=== PATIENT | female | born 1975 | race Caucasian/White ===

== ENCOUNTER 2019-04-12 11:04 | Outpatient (CLI) | payer OTHER, SELFPAY ==
[2019-04-12 11:22] LABS: Abs Immature Grans 0.01 k/cumm (0.0-0.09); Absolute Basophil Count 0.05 k/cumm (0.0-0.2); Absolute Eosinophil Count 0.06 k/cumm (0.0-0.7); Absolute Lymphocyte Count 1.52 k/cumm (1.2-3.4); Basophils % 0.9; Eosinophils % 1.1; Immature Grans % 0.2; Lymphocytes % 28.5; Mean Corp. HGB Concentration 34.8 g/dL (32.0-36.0); Mean Corpuscular Hemoglobin 34.7 pg (27.0-33.0); Mean Corpuscular Volume 99.8 fL (80-95); Mean Platelet Volume 9.6 fL (8.0-11.0); Neutrophils % 54.3; Platelet Count 210 x1000/uL (130-400); RBC 4.61 m/cumm (4.00-5.20); RBC Distribution Width 14.5 % (11.7-14.6); White Blood Cell Count 5.34 k/cumm (4.4-10.8)
[2019-04-12 12:47] LABS: ALT 48 U/L (12-78); AST 38 U/L (15-37); Albumin 3.9 g/dL (3.4-5.0); Alkaline Phosphatase 79 U/L (46-116); Anion Gap 13.6 mmol/L (3-11); BUN 15 mg/dL (7-18); Bilirubin, Total 1.2 mg/dL (0.2-1.0); CO2 27.4 mmol/L (21.0-32.0); CREATININE 0.79 mg/dL (0.55-1.02); Calcium 9.8 mg/dL (8.5-10.1); Chloride 100 mmol/L (98-107); Glucose 125 mg/dL (70-100); Potassium 3.8 mmol/L (3.5-5.1); Sodium 141 mmol/L (136-145); TSH (W/Ref FT4) 1.26 uIU/mL (0.36-3.74)
[2019-04-12 13:43] LABS: ESR 5 mm/hr (0-20)
[2019-04-13 14:17] LABS: ANA Interpretation Positive (NEGAT); ANA Titer Pattern SEE COMMENTS
== END 2019-04-12 11:24 ==
PROVIDERS: Visit Provider Nurse Practitioner Family
DX: R20.8 Other disturbances of skin sensation (principal)
CPT/HCPCS: 36415; 80053; 85652; 84443; 85025; 86038

== ENCOUNTER 2019-05-26 11:21 | Outpatient (CLI) | payer OTHER, SELFPAY ==
[2019-05-26 13:18] LABS: Iron 160 ug/dL (50-175); Total Iron Binding Capacity 397 ug/dL (250-450); Transferrin Sat 40 % (15-50)
[2019-05-27 09:44] LABS: Hepatitis C Ab w Rflx HCV PCR Negative (NEGAT)
[2019-05-31 12:42] LABS: RNP Ab, IgG 1.5 Units (<20); SS-A Antibody 1.1 Units (<20); SS-B (La) Ab, IgG 16.7 Units (<20); Sm (Smith) Ab, IgG 2.2 Units (<20)
== END 2019-05-26 11:41 ==
PROVIDERS: PCP Family Medicine; Visit Provider Internal Medicine Rheumatology
DX: M79.672 Pain in left foot (principal); M79.671 Pain in right foot; R20.0 Anesthesia of skin; R76.8 Other specified abnormal immunological findings in serum; D58.2 Other hemoglobinopathies
CPT/HCPCS: 36415; 86803; 83540; 83550; 86235

== ENCOUNTER 2019-07-27 12:44 | Emergency (ER) | payer MEDICAID, SELFPAY ==
[2019-07-27 12:58] VITALS: BP 143/101; PULSE 104; RESP 16; TEMP 36; O2SAT 96
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
[2019-07-27 13:34] LABS: Abs Immature Grans 0.01 k/cumm (0.0-0.09); Absolute Basophil Count 0.04 k/cumm (0.0-0.2); Absolute Eosinophil Count 0.06 k/cumm (0.0-0.7); Absolute Lymphocyte Count 1.98 k/cumm (1.2-3.4); Absolute Monocyte Count 0.46 k/cumm (0.11-0.7); Absolute Neutrophil Count 2.09 k/cumm (1.2-6.7); Basophils % 0.9; Eosinophils % 1.3; HGB 14.3 g/dL (12.0-15.5); Immature Grans % 0.2; Lymphocytes % 42.7; Mean Corp. HGB Concentration 34.9 g/dL (32.0-36.0); Mean Corpuscular Hemoglobin 33.2 pg (27.0-33.0); Mean Corpuscular Volume 95.1 fL (80-95); Mean Platelet Volume 9.1 fL (8.0-11.0); Monocytes % 9.9; Platelet Count 170 x1000/uL (130-400); RBC 4.31 m/cumm (4.00-5.20); RBC Distribution Width 13.1 % (11.7-14.6); White Blood Cell Count 4.64 k/cumm (4.4-10.8)
[2019-07-27 13:52] LABS: Salicylate < 2.8 mg/dL (2.8-20.0)
[2019-07-27 13:55] LABS: ALT 50 U/L (14-59); AST 86 U/L (15-37); Albumin 3.1 g/dL (3.4-5.0); Alkaline Phosphatase 81 U/L (46-116); Anion Gap 10.2 mmol/L (3-11); BUN 14 mg/dL (7-18); Bilirubin, Total 0.6 mg/dL (0.2-1.0); CO2 27.8 mmol/L (21.0-32.0); CREATININE 0.63 mg/dL (0.55-1.02); Calcium 8.1 mg/dL (8.5-10.1); Chloride 103 mmol/L (98-107); ETHANOL BLOOD 128.2 mg/dL (<3); Glucose 98 mg/dL (74-106); Potassium 3.8 mmol/L (3.5-5.1); Sodium 141 mmol/L (136-145); TSH 1.08 uIU/mL (0.36-3.74); Total Protein 6.4 g/dL (6.4-8.2)
[2019-07-27 14:02] LABS: Acetaminophen < 2 ug/mL (10-30)
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
[2019-07-27 15:02] LABS: *AMPHETAMINES SCREEN URINE Negative (Negative); *BARBITURATES SCREEN URINE Negative (Negative); *BENZODIAZEPINES SCREEN URINE Negative (Negative); Cannabinoids THC POSITIVE (Negative); Cocaine Screen,Urine Negative (Negative); METHADONE URINE SCREEN Negative (Negative); OPIATES URINE SCREEN Negative (Negative)
[2019-07-27 15:19] VITALS: BP 140/99; PULSE 90; RESP 18; O2SAT 97
[2019-07-27 15:23] LABS: Tricyclic Antidepressants Negative (Negative)
== END 2019-07-27 15:35 | disposition home or self-care (01) ==
PROVIDERS: Emergency Provider Emergency Medicine; PCP Family Medicine
DX: F32.9 Major depressive disorder, single episode, unspecified (principal); R45.851 Suicidal ideations; F10.120 Alcohol abuse with intoxication, uncomplicated; Y90.6 Blood alcohol level of 120-199 mg/100 ml
CPT/HCPCS: 80053; 80307; 81025; 99285; 80320; 80329; 81003; 84443; 85025; 99284

== ENCOUNTER 2020-01-09 21:05 | Outpatient (REF) | payer MEDICAID, SELFPAY ==
[2020-01-09 21:18] LABS: HCT 37.8 % (36.0-46.0); HGB 12.8 g/dL (12.0-15.5); Mean Corp. HGB Concentration 33.9 g/dL (32.0-36.0); Mean Corpuscular Volume 100.5 fL (80-95); Mean Platelet Volume 10.8 fL (8.0-11.0); Platelet Count 135 x1000/uL (130-400); RBC 3.76 m/cumm (4.00-5.20); RBC Distribution Width 13.2 % (11.7-14.6); White Blood Cell Count 9.83 k/cumm (4.4-10.8)
[2020-01-09 21:25] LABS: ALT 29 U/L (14-59); AST 41 U/L (15-37); Albumin 2.4 g/dL (3.4-5.0); Alkaline Phosphatase 106 U/L (46-116); Anion Gap 8.6 mmol/L (3-11); BUN 5 mg/dL (7-18); Bilirubin, Total 1.5 mg/dL (0.2-1.0); CO2 28.4 mmol/L (21.0-32.0); CREATININE 0.75 mg/dL (0.55-1.02); Calcium 6.6 mg/dL (8.5-10.1); Chloride 95 mmol/L (98-107); Glucose 94 mg/dL (74-106); Lipase 337 U/L (73-393); Sodium 132 mmol/L (136-145); Total Protein 5.6 g/dL (6.4-8.2)
[2020-01-09 21:47] LABS: Potassium 2.8 mmol/L (3.5-5.1)
== END 2020-01-09 21:25 ==
LOC: NCHCN 21:05
PROVIDERS: PCP Family Medicine; Visit Provider Family Medicine
DX: R10.9 Unspecified abdominal pain (principal)
CPT/HCPCS: 80053; 83690; 85027

== ENCOUNTER 2020-01-10 13:27 | Outpatient (REF) | payer MEDICAID, SELFPAY ==
[2020-01-10 14:04] LABS: ALT 33 U/L (14-59); AST 55 U/L (15-37); Albumin 2.4 g/dL (3.4-5.0); Alkaline Phosphatase 139 U/L (46-116); Anion Gap 7.2 mmol/L (3-11); BUN 5 mg/dL (7-18); Bilirubin, Total 1.9 mg/dL (0.2-1.0); CO2 30.8 mmol/L (21.0-32.0); CREATININE 0.71 mg/dL (0.55-1.02); Calcium 6.7 mg/dL (8.5-10.1); Chloride 97 mmol/L (98-107); Glucose 97 mg/dL (74-106); Potassium 3.1 mmol/L (3.5-5.1); Sodium 135 mmol/L (136-145); Total Protein 5.7 g/dL (6.4-8.2)
== END 2020-01-10 13:47 ==
LOC: NCHCN 13:27
PROVIDERS: PCP Family Medicine; Visit Provider Internal Medicine
DX: E87.6 Hypokalemia (principal)
CPT/HCPCS: 80053

== ENCOUNTER 2020-01-11 11:13 | Emergency (ER) | payer MEDICAID, SELFPAY ==
[2020-01-11] VITALS (10 sets, daily range): BP systolic 103–131; BP diastolic 60–77; PULSE 80–120; RESP 8–18; TEMP 36; O2SAT 96–100
--- NOTE | 2020-01-11 11:15 | DI.CT_ITS ---
EXAM: CT ABDOMEN PELVIS W CLINICAL HISTORY: Upper abdominal pain, N/V/D, fever TECHNIQUE: Imaging Protocol: Axial computed tomography images with coronal and sagittal reformatted images were created and reviewed CONTRAST MATERIAL: Intravenous: Omnipaque 350 Contrast volume:100 mL Oral: No COMPARISON: No exams were available for comparison FINDINGS: ABDOMEN: Lung Bases: Normal where visualized. Liver: Fatty liver. No measurable mass. Portal, Superior Mesenteric, and Splenic Veins: Unremarkable. Gallbladder and Biliary Tract: No radiodense calculus or dilation. Pancreas: Normal density with a mildly enlarged pancreas.. Extensive fluid is seen surrounding the p ancreas. No focal fluid collection is seen to suggest an abscess. The findings are suspicious for a cute pancreatitis. Spleen: Normal. Adrenals: No masses seen. Kidneys: Normal size, contour and axis. No radiodense stones or obstructive uropathy. No masses seen. Abdominal Aorta: Abdominal portion non-dilated. Bowel: No evidence of bowel obstruction. Mild thickening of the wall of the duodenum and proximal je junum likely reflecting the adjacent inflammatory changes of the pancreas. No evidence of acute appe ndicitis. Peritoneal Cavity: Small amount of abdominal pelvic ascites. No focal fluid collection to suggest an abscess. Lymph Nodes: Mildly enlarged lymph nodes in the upper abdomen which are likely reactive. Bones: Age appropriate degenerative changes in the spine. Soft Tissues: Unremarkable. PELVIS: Bladder: Symmetric distention, no gross wall thickening. Reproductive Organs: 2.9 x 3.8 cm hypodense mass involving the left adnexa with an associated calcifi cation. This may represent a ovarian dermoid. Lymph Nodes: Within normal limits. Bones: Degenerative changes. IMPRESSION: 1. Findings suspicious for acute pancreatitis. No evidence of an abscess. 2. Small amount of abdominal pelvic ascites. 3. Complex mass in the left adnexa with an associated calcification. This may represent an ovarian d ermoid. Pelvic ultrasound may be considered for further evaluation. 4. The findings were discussed with the emergency department on the date of the examination. RADIATION DOSE DELIVERED: 1,050.94mGy.cm Total DLP DATA REPOSITORY: All CT scans at this facility are submitted to the National Radiology Data Registry (NRDR) Dose Index Registry (DIR) with the [employer] (A[employer]). RADIATION OPTIMIZATION: All CT scans at this facility use at least one of these dose optimization te chniques: automated exposure control; mA and/or kV adjustment per patient size (includes targeted exa ms where dose is matched to clinical indication); or iterative reconstruction.
--- NOTE | 2020-01-11 11:28 | W.ED.GENAD ---
Discharge Plan Disposition Patient Disposition: HOME Condition: Stable Discharge Details Chief Complaint: Abd Prob Clinical Impression: Acute pancreatitis Primary Care Provider: Maritza Cheatham ED Provider: Magalie Blake Home Meds and New Rx's Prescriptions: New hydrocodone-ibuprofen 5-200 mg tablet 1 tab PO Q6H PRN (Reason: pain) Qty: 7 RF: 0 Continued potassium chloride 20 mEq tablet,ER particles/crystals 20 meq PO BID RF: 0 ondansetron HCl 4 mg tablet 4 mg PO PRN PRNRF: 0 omeprazole magnesium [Prilosec OTC] 20 mg Tablet,Delayed Release (Dr/Ec) 20 mg PO DAILY RF: 0 Discharge Instructions Instructions: Pancreatitis (ED) Additional Instructions: Follow up with primary care provider in 3-5 days. Return to ED sooner if any worsening or concerns. Increase oral fluids. Please take Ibuprofen with food every 4-6 hours as needed for pain and swelling. Take medications as directed, return to the ED for any fever, worsening vomiting, worsening pain not relieved by medications or any concerns. Do not drink alcohol this will make your pancreatitis worse Referrals: Maritza Cheatham [Primary Care Provider] - Medical Decision Making 44-year-old female presents with generalized abdominal pain associated with nausea, vomiting, fever, and diarrhea x6 days. Patient was seen by [facility] 2 days ago had labs done and was shown to have a potassium level of 3.1 sodium 135 calcium 6.7 and total bilirubin 1.9. She also has some elevated liver functions. Patient states that she has not vomited due to being on antiemetics Zofran but diarrhea has continued and the abdominal pain is still constant. She describes abdominal pain as stabbing, moderate to severe, radiates into her back. Abdominal surgical history includes x2 and hernia repair. We will repeat labs to evaluate leukocytosis fever and potassium. Patient given 2 mg of morphine IV and normal saline [address] abdomen pelvis with IV contrast ordered to rule out cholecystitis versus pancreatitis. Differential diagnosis includes but not limited to gastroenteritis, pancreatitis, cholecystitis, small bowel obstruction. 1259: CT shows evidence for possible pancreatitis inflamed pancreas with surrounding fluid. Due to patient's elevated bilirubin and elevated liver enzymes I will order an ultrasound to evaluate the gallbladder to rule out stone in the common bile duct. Discussed results with patient, verbalized understanding. Additional 50 mics of fentanyl ordered for pain control, magnesium infusion is infusing without difficulty at this time. 1400: Ultrasound preliminary report given verbally by diesel service technician shows inflamed pancreas no gallstones no evidence of cholecystitis. At this time it is her findings are more consistent with acute pancreatitis. We will send home with pain medicine she does have some Zofran previously prescribed. Strict return instructions given and red flags given to patient, verbalized understanding. Patient feels safe enough to go home at this time. Instructed to follow-up with primary care provider in 3 to 5 days if possible. Time of this dictation patient remained hemodynamically stable throughout stay, this text was generated using [employer] dictation system, please disregard any oddities of phrase or misspellings. Medical Records Medical records reviewed: Yes I reviewed the patient's medical records. HPI General Mode of arrival: ambulatory. Date/Time Provider Initiated Documentation: 01/11/20 11:15. Limitations to Documentation: no limitations. Information obtained by: patient. HPI Narrative: 44-year-old female presents with generalized abdominal pain associated with nausea, vomiting, fever, and diarrhea x6 days. Patient was seen by [facility] 2 days ago had labs done and was shown to have a potassium level of 3.1 sodium 135 calcium 6.7 and total bilirubin 1.9. She also has some elevated liver functions. Patient states that she has not vomited due to being on antiemetics Zofran but diarrhea has continued and the abdominal pain is still constant. She describes abdominal pain as stabbing, moderate to severe, radiates into her back. Abdominal surgical history includes x2 and hernia repair. Related Data Home Medications Medication Instructions Recorded Confirmed hydrocodone-ibuprofen 1 tab PO Q6H PRN #7 tab 01/11/20 omeprazole magnesium [Prilosec OTC] 20 mg PO DAILY 01/11/20 01/11/20 ondansetron HCl 4 mg PO PRN PRN 01/11/20 01/11/20 potassium chloride 20 meq PO BID 01/11/20 01/11/20 Previous Rx's Medication Instructions Recorded hydrocodone-ibuprofen 1 tab PO Q6H PRN #7 tab 01/11/20 Allergies Allergy/AdvReac Type Severity Reaction Status Date / Time No Known Allergies Allergy Verified 01/11/20 11:22 General Stated Complaint: Abd Prob LATRELL: 3 Review of Systems Narrative: Constitutional: Negative for weight loss, alert and oriented, well groomed, normal body habitus, appears uncomfortable. Reports fever. HEENT: Denies trauma, headaches, blurry vision, nasal discharge, sore throat, trouble swallowing. Chest: Denies chest pain, palpitations, irregular rhythm, hypertension. Respiratory: Denies Shortness of breath, cough, hemoptysis. GI: Denies , constipation. Positive abdominal pain, nausea vomiting diarrhea. : Denies dysuria, hematuria, flank pain, rectal bleeding. Neuro: Denies dizziness, blurry vision, weakness, syncope, headache or facial numbness. Hematologic: Denies easy bruising, intolerance to heat or cold, hair loss. All systems reviewed & are unremarkable except as noted in HPI and below PFSH Social History Smoking/Tobacco Use Status: Current every day Tobacco Type: cigarettes Smoking packs per day: 1 Smoking cigarettes per day: 20.0 Alcohol Intake: current Alcohol Intake frequency: a few times a week Drug use: Rarely Substance use type: marijuana Details: no drugs or alcohol today Do you feel safe at home: No Exam Narrative Exam Narrative: Constitutional: Alert and oriented x3. Appears stated age. Normal body habitus. Head: Normocephalic, no trauma. Eyes: Pupils PERRLA, Red reflex noted, EOM's intact. Eyelids symmetrical without lesions, discharge, or swelling. ENT: Bilateral TM's WNL, External ear normal to inspection, no mastoid TTP, swelling, or erythema, Nasal turbinates WNL, no nasal discharge. Normal dentition, Posterior pharynx WNL, no exudate. Chest: RRR, Normal S1, S2, distal pulses intact. Resp: Lungs clear to auscultation bilaterally, no wheezes, rales, or rhonchi. Abdominal: Abdomen is soft nondistended tender to palpation midepigastrium left upper quadrant and right upper quadrant. Hypoactive bowel sounds noted all 4 quadrants. Musculoskeletal: Normal gait, 5/5 strength to all four extremities. Skin: No suspicious rashes or lesions. Capillary refill less than 2 sec. Neurologic: Cranial nerves II-XII intact. Alert and oriented x 3. DTR's intact. Hematologic/Lymphatic: No ecchymosis, no lymphadenopathy. Course Vital Signs Vital signs: Vital Signs Temperature 36 C L 01/11/20 11:17 Pulse 120 H 01/11/20 11:17 Respiratory Rate 16 01/11/20 11:17 Blood Pressure 113/72 01/11/20 11:17 Pulse Oximetry 99 01/11/20 11:17 Temperature 36 C L 01/11/20 11:17 Temperature Source Skin 01/11/20 11:17 Pulse 120 H 01/11/20 11:17 Respiratory Rate 16 01/11/20 11:17 Respiratory Effort 01/11/20 11:25 Blood Pressure 113/72 01/11/20 11:17 Blood Pressure Position Sitting 01/11/20 11:17 Pulse Oximetry 99 01/11/20 11:17 Oxygen Delivery Method Room Air 01/11/20 11:17 Oxygen Flow Rate 0 01/11/20 11:17 Pain Level 8 01/11/20 11:17
[2020-01-11] MEDS: Normal Saline 1,000 ML 1000 ML IV (11:30)
[2020-01-11] MEDS: MORPHine 10 MG/ML VIAL 2 MG IVP (11:35)
[2020-01-11 11:40] LABS: Abs Immature Grans 0.02 k/cumm (0.0-0.09); Absolute Basophil Count 0.01 k/cumm (0.0-0.2); Absolute Eosinophil Count 0.13 k/cumm (0.0-0.7); Absolute Lymphocyte Count 0.85 k/cumm (1.2-3.4); Absolute Monocyte Count 1.45 k/cumm (0.11-0.7); Absolute Neutrophil Count 5.56 k/cumm (1.2-6.7); Basophils % 0.1; Eosinophils % 1.6; HCT 36.1 % (36.0-46.0); HGB 12.3 g/dL (12.0-15.5); Immature Grans % 0.2 %; Lymphocytes % 10.6; Mean Corp. HGB Concentration 34.1 g/dL (32.0-36.0); Mean Corpuscular Hemoglobin 34.2 pg (27.0-33.0); Mean Corpuscular Volume 100.3 fL (80-95); Mean Platelet Volume 9.3 fL (8.0-11.0); Monocytes % 18.1; Neutrophils % 69.4; Platelet Count 180 x1000/uL (130-400); RBC Distribution Width 13.1 % (11.7-14.6); White Blood Cell Count 8.02 k/cumm (4.4-10.8)
[2020-01-11 11:55] LABS: ALT 36 U/L (14-59); AST 52 U/L (15-37); Albumin 2.2 g/dL (3.4-5.0); Alkaline Phosphatase 146 U/L (46-116); Anion Gap 6.4 mmol/L (3-11); BUN 3 mg/dL (7-18); Bilirubin, Total 1.5 mg/dL (0.2-1.0); CO2 28.6 mmol/L (21.0-32.0); Calcium 7.1 mg/dL (8.5-10.1); Chloride 100 mmol/L (98-107); Glucose 130 mg/dL (74-106); Lipase 207 U/L (73-393); Potassium 3.4 mmol/L (3.5-5.1); Sodium 135 mmol/L (136-145); Total Protein 6.3 g/dL (6.4-8.2)
[2020-01-11 12:07] LABS: Bilirubin Moderate (Negative); Blood Negative (Negative); Clarity Clear (Clear); Glucose 100 mg/dL (Negative); Ketones 15 mg/dL (Negative); Leukocyte Esterase Negative (Negative); Nitrite Negative (Negative); Urobilinogen >=8.0 EU/dL (Up TO 0.2); pH 8.5 (5-8)
[2020-01-11] MEDS: MAGNESIUM SULFATE 1 GM/100 ML BAG IVPB (12:15)
[2020-01-11] MEDS: Normal Saline 1,000 ML 100 ML IV (12:15)
[2020-01-11 12:18] LABS: Bacteria Moderate HPF (Negative); C & S Indicated? No; Casts Negative LPF (Negative); Crystals Negative HPF (Negative); Epithelial Cells Moderate HPF (Negative); Mucus Negative (Negative); Other Cells Moderate Renal (Negative); RBC 0-2 HPF (0-2); WBC Negative HPF (0-5)
[2020-01-11] MEDS: Normal Saline Flush 10 ML SYR IVP (12:18)
[2020-01-11] MEDS: Normal Saline - Diluent 50 ML VIAL IV (12:23)
[2020-01-11] MEDS: Omnipaque 350 MG/ML 100 ML BTL IJ (12:23)
--- NOTE | 2020-01-11 12:45 | DI.US_ITS ---
EXAM: US ABDOMEN LIMITED CLINICAL HISTORY: R/O gallstones, elevated bilirubin TECHNIQUE: Ultrasound abdomen performed using standard protocol. COMPARISON: No exams were available for comparison FINDINGS: ABDOMINAL AORTA AND IVC: Visualized portions normal caliber. PANCREAS: The body of the pancreas is enlarged measuring 3.2 cm in diameter. LIVER: Increased echogenicity consistent with fatty infiltration. No hepatic mass. Hepatopedal flow in the Portal Vein. GALLBLADDER: No evidence of cholelithiasis. No evidence of wall thickening. No pericholecystic fluid identified. BILIARY SYSTEM: Common bile duct measures 4 mm. No intrahepatic biliary ductal dilation. ANDERSEN'S SIGN: Negative. KIDNEYS: The right kidney is unremarkable. No evidence of renal calculi. No evidence of hydronephros is. No renal mass or cyst identified. ASCITES: None seen. IMPRESSION: 1. No evidence of cholelithiasis or biliary ductal dilatation. 2. Enlarged pancreas corresponding to the findings on the CT scan from earlier in the day. 3. Hepatic steatosis. 4. The findings were discussed with the emergency department on the date of the examination. DATA REPOSITORY:
[2020-01-11] MEDS: fentaNYL 100 MCG/2 ML VIAL 50 MCG IVP (13:34)
--- NOTE | 2020-01-11 15:11 | W.ED.FU ---
Patient called saying that pharmacies do not carry hydrocodone with ibuprofen will change prescription to oxycodone 5 mg. Patient instructed to bring back old prescription.
== END 2020-01-11 14:22 | disposition home or self-care (01) ==
PROVIDERS: Emergency Provider Registered Nurse Emergency; PCP Family Medicine
DX: K85.80 Other acute pancreatitis without necrosis or infection (principal); E83.42 Hypomagnesemia; R11.2 Nausea with vomiting, unspecified
CPT/HCPCS: 36415; 80053; 83690; 87040; 96361; 96365; 96375; 99285; 74177; 76705; 81003; 81015; 83735; 85025; 99284; J2270; J3010; J3475; J3490

== ENCOUNTER 2020-01-13 11:22 | Outpatient (REF) | payer MEDICAID, SELFPAY ==
[2020-01-13 21:10] LABS: Anion Gap 6.5 mmol/L (3-11); BUN 3 mg/dL (7-18); CO2 29.5 mmol/L (21.0-32.0); CREATININE 0.66 mg/dL (0.55-1.02); Calcium 8.5 mg/dL (8.5-10.1); Chloride 98 mmol/L (98-107); Glucose 103 mg/dL (74-106); Lipase 113 U/L (73-393); Magnesium 1.3 mg/dL (1.8-2.4); Sodium 134 mmol/L (136-145)
== END 2020-01-13 11:42 ==
LOC: NCHCN 11:22
PROVIDERS: PCP Family Medicine; Visit Provider Family Medicine
DX: E87.6 Hypokalemia (principal); E83.51 Hypocalcemia; E83.42 Hypomagnesemia; R10.9 Unspecified abdominal pain
CPT/HCPCS: 80048; 83690; 83735

== ENCOUNTER 2020-01-18 17:09 | Outpatient (REF) | payer MEDICAID, SELFPAY | END 2020-01-18 17:29 | LOC: NCHCN 17:09 | PROVIDERS: PCP Family Medicine; Visit Provider Urology | DX: R35.0 Frequency of micturition (principal) | CPT/HCPCS: 87086 ==

== ENCOUNTER 2020-01-25 02:58 | Outpatient (CLI) | payer MEDICAID, SELFPAY ==
[2020-01-25 14:00] LABS: Abs Immature Grans 0.01 k/cumm (0.0-0.09); Absolute Basophil Count 0.05 k/cumm (0.0-0.2); Absolute Eosinophil Count 0.08 k/cumm (0.0-0.7); Absolute Lymphocyte Count 1.26 k/cumm (1.2-3.4); Absolute Monocyte Count 0.46 k/cumm (0.11-0.7); Absolute Neutrophil Count 4.04 k/cumm (1.2-6.7); Basophils % 0.8; Eosinophils % 1.4; HCT 38.5 % (36.0-46.0); Immature Grans % 0.2 %; Lymphocytes % 21.4; Mean Corp. HGB Concentration 33.8 g/dL (32.0-36.0); Mean Corpuscular Hemoglobin 33.2 pg (27.0-33.0); Mean Corpuscular Volume 98.2 fL (80-95); Mean Platelet Volume 9.4 fL (8.0-11.0); Monocytes % 7.8; Neutrophils % 68.4; Platelet Count 463 x1000/uL (130-400); RBC 3.92 m/cumm (4.00-5.20); RBC Distribution Width 13.5 % (11.7-14.6)
[2020-01-26 10:39] LABS: Lyme Ab w Rflx to Lyme Confirm Negative (Negative)
[2020-01-26 10:47] LABS: RNP Ab, IgG 1.5 Units (<20.0); SS-A Antibody 0.9 Units (<20.0); SS-B (La) Ab, IgG 12.6 Units (<20.0); Sm (Smith) Ab, IgG 1.1 Units (<20.0)
[2020-01-26 11:18] LABS: C3 Complement 119 mg/dL (81-157)
[2020-01-26 12:16] LABS: dsDNA Ab, IgG <12.3 IU/mL (<30.0)
== END 2020-01-25 03:18 ==
PROVIDERS: PCP Family Medicine; Visit Provider Internal Medicine Rheumatology
DX: R21 Rash and other nonspecific skin eruption (principal); R76.8 Other specified abnormal immunological findings in serum; Z79.899 Other long term (current) drug therapy
CPT/HCPCS: 36415; 85025; 86160; 86225; 86235; 86618

== ENCOUNTER 2020-05-01 08:28 | Emergency (ER) | payer MEDICAID, SELFPAY ==
[2020-05-01 08:30] VITALS: BP 145/95; PULSE 94; TEMP 36.6; O2SAT 100
--- NOTE | 2020-05-01 08:43 | ED.GENADUL_ITS ---
Discharge Plan Disposition Patient Disposition: HOME Condition: Stable Discharge Details Chief Complaint: Orthopedic Clinical Impression: Sprain of right shoulder Primary Care Provider: Maritza Cheatham ED Provider: Magalie Blake Home Meds and New Rx's Prescriptions: New baclofen 5 mg tablet 5 mg PO BID PRN (Reason: muscle spasm) Qty: 7 RF: 0 No Action potassium chloride 20 mEq tablet,ER particles/crystals 20 meq PO BID RF: 0 ondansetron HCl 4 mg tablet 4 mg PO PRN PRNRF: 0 omeprazole magnesium [Prilosec OTC] 20 mg Tablet,Delayed Release (Dr/Ec) 20 mg PO DAILY RF: 0 hydrocodone-ibuprofen 5-200 mg tablet 1 tab PO Q6H PRN (Reason: pain) Qty: 7 RF: 0 Discharge Instructions Instructions: Shoulder Sprain (ED) Additional Instructions: Follow up with primary care provider in 3-5 days. Return to ED sooner if any worsening or concerns. Increase oral fluids. Please take Tylenol or Ibuprofen with food every 4-6 hours as needed for pain and swelling. Rest, ice, compression. Stand Alone Forms: Work Release Referrals: Maritza Cheatham [Primary Care Provider] - Medical Decision Making <Magalie Blake - Last Filed: 05/01/20 10:26> 45-year-old female presents the ER with right shoulder pain after lifting a heavy pot while at work. She complains of anterior pinpoint tenderness. She does have full range of motion however it is painful. No obvious deformity or swelling or erythema noted. She has no other complaints at this time. She reports pain 7 out of 10 did not take any medications prior to arrival. Imaging not ordered at this time due to low likelihood of bony abnormality. This is most likely tendinitis. Will give tramadol and Flexeril here in department discharge patient with follow-up for PCP. <Lobito Scherer MD - Last Filed: 05/01/20 08:49> I had a [id number] encounter with the patient. I evaluated the patient. I discussed case with SECURITY CONTROL ROOM OFFICER/PA and I reviewed SECURITY CONTROL ROOM OFFICER/PA note and agree with note as documented HPI <Magalie Balke - Last Filed: 05/01/20 10:26> General Mode of arrival: ambulatory . Date/Time Provider Initiated Documentation: 05/01/20 08:29 . Limitations to Documentation: no limitations . Information obtained by: patient . HPI Narrative: 45-year-old female presents the ER with right shoulder pain after lifting a heavy pot while at work. She complains of anterior pinpoint tenderness. She does have full range of motion however it is painful. No obvious deformity or swelling or erythema noted. She has no other complaints at this time. She reports pain 7 out of 10 did not take any medications prior to arrival. Related Data Home Medications Medication Instructions Recorded Confirmed hydrocodone-ibuprofen 1 tab PO Q6H PRN #7 tab 01/11/20 omeprazole magnesium [Prilosec OTC] 20 mg PO DAILY 01/11/20 01/11/20 ondansetron HCl 4 mg PO PRN PRN 01/11/20 01/11/20 potassium chloride 20 meq PO BID 01/11/20 01/11/20 baclofen 5 mg PO BID PRN #7 tab 05/01/20 Previous Rx's Medication Instructions Recorded hydrocodone-ibuprofen 1 tab PO Q6H PRN #7 tab 01/11/20 baclofen 5 mg PO BID PRN #7 tab 05/01/20 Allergies Allergy/AdvReac Type Severity Reaction Status Date / Time No Known Allergies Allergy Verified 05/01/20 08:34 General Stated Complaint: Orthopedic LATRELL: 3 Review of Systems <Magalie Blake - Last Filed: 05/01/20 10:26> Narrative: Constitutional: Negative for weight loss, alert and oriented, well groomed, normal body habitus, appears comfortable. HEENT: Denies trauma, headaches, blurry vision, nasal discharge, sore throat, trouble swallowing. Chest: Denies chest pain, palpitations, irregular rhythm, hypertension. Respiratory: Denies Shortness of breath, cough, hemoptysis. GI: Denies abdominal pain, nausea, vomiting, diarrhea, constipation. Musculoskeletal: Right anterior shoulder pain : Denies dysuria, hematuria, flank pain, rectal bleeding. Neuro: Denies dizziness, blurry vision, weakness, syncope, headache or facial numbness. Hematologic: Denies easy bruising, intolerance to heat or cold, hair loss. [facility] <Magalie Blake - Last Filed: 05/01/20 10:26> Social History Smoking/Tobacco Use Status: Current every day Tobacco Type: cigarettes Smoking packs per day: 1 Smoking cigarettes per day: 20.0 Alcohol Intake: current Alcohol Intake frequency: a few times a week Drug use: Rarely Substance use type: marijuana Details: no drugs or alcohol today Do you feel safe at home: Yes Do you feel safe in your relationship?: Yes Exam <Magalie Ordaz Filed: 05/01/20 10:26> Narrative Exam Narrative: Constitutional: Alert and oriented x3. Appears stated age. Normal body habitus. Head: Normocephalic, no trauma. Eyes: Pupils PERRLA, Red reflex noted, EOM's intact. Eyelids symmetrical without lesions, discharge, or swelling. ENT: Bilateral TM's WNL, External ear normal to inspection, no mastoid TTP, swelling, or erythema, Nasal turbinates WNL, no nasal discharge. Normal dentition, Posterior pharynx WNL, no exudate. Chest: RRR, Normal S1, S2, distal pulses intact. Resp: Lungs clear to auscultation bilaterally, no wheezes, rales, or rhonchi. Musculoskeletal: Normal gait, 5/5 strength to all four extremities. Right anterior pinpoint tenderness with palpation. No obvious deformity or swelling noted. Skin: No suspicious rashes or lesions. Capillary refill less than 2 sec. Neurologic: Cranial nerves II-XII intact. Alert and oriented x 3. DTR's intact. Hematologic/Lymphatic: No ecchymosis, no lymphadenopathy. Course <Magalie Ordaz Filed: 05/01/20 10:26> Vital Signs Vital signs: Vital Signs Temperature 36.6 C 05/01/20 08:30 Pulse 94 H 05/01/20 08:30 Blood Pressure 145/95 H 05/01/20 08:30 Pulse Oximetry 100 05/01/20 08:30 Temperature 36.6 C 05/01/20 08:30 Temperature Source Temporal Artery Scan 05/01/20 08:30 Pulse 94 H 05/01/20 08:30 Respiratory Effort Non-Labored 05/01/20 08:33 Blood Pressure 145/95 H 05/01/20 08:30 Blood Pressure Position Sitting 05/01/20 08:30 Pulse Oximetry 100 05/01/20 08:30 Oxygen Delivery Method Room Air 05/01/20 08:30 Oxygen Flow Rate 0 05/01/20 08:30 Pain Level 7 05/01/20 08:30
[2020-05-01] MEDS: Cyclobenzaprine 10 MG TAB PO (08:48)
[2020-05-01] MEDS: traMADol 50 MG TAB PO (08:48)
== END 2020-05-01 08:55 | disposition home or self-care (01) ==
PROVIDERS: Emergency Provider Registered Nurse Emergency; PCP Family Medicine
DX: S43.491A Other sprain of right shoulder joint, initial encounter (principal); X50.0XXA Overexertion from strenuous movement or load, initial encounter; Y99.0 Civilian activity done for income or pay
CPT/HCPCS: 99283

== ENCOUNTER 2020-05-23 11:25 | Outpatient (CLI) | payer OTHER, SELFPAY ==
--- NOTE | 2020-05-23 10:45 | DI.RAD_ITS ---
EXAM: XR SHOULDER RT COMPLETE 2+V CLINICAL HISTORY: right shoulder pain. TECHNIQUE: 2D digital imaging was performed. COMPARISON: MR MRI - L UPPER JOINT WO CONT from 10/17/2011 FINDINGS: BONES: No acute fracture is present. No bony destructive lesion is seen. JOINTS: No dislocation present. No significant degenerative changes. SOFT TISSUE: Normal. IMPRESSION: Unremarkable radiographs of the right shoulder DATA REPOSITORY: RADIATION DOSE DELIVERED:
== END 2020-05-23 11:45 ==
PROVIDERS: PCP Family Medicine; Referring Provider Family Medicine; Visit Provider Student in an Organized Health Care Education/Training Program
DX: M25.511 Pain in right shoulder (principal)
CPT/HCPCS: 73030

== ENCOUNTER 2020-06-05 00:35 | Outpatient (CLI) | payer OTHER, SELFPAY ==
--- NOTE | 2020-06-05 08:40 | DI.MRI_ITS ---
EXAM: MR UPPER JOINT RT WO CLINICAL HISTORY: Traumatic rotator cuff tear,biceps tendinitis,impingement syndrome,s46.011a. TECHNIQUE: Multiplanar multisequence MRI was performed. COMPARISON: Right shoulder 23 May 2020 FINDINGS: There is no significant AC joint spurring. There is fluid in the subacromial subdeltoid bursa which could indicate bursitis.. There is a small amount of increased signal and thickening in the distal s upraspinatus tendon but no visible focal tear. The infraspinatus, subscapularis, teres minor and bic eps tendons are unremarkable. No labral defects are seen. There is no glenohumeral joint effusion. The marrow signal appears normal. IMPRESSION: Supraspinatus tendinosis. Subacromial subdeltoid bursitis. DATA REPOSITORY:
== END 2020-06-05 00:55 ==
PROVIDERS: PCP Family Medicine; Visit Provider Student in an Organized Health Care Education/Training Program
DX: M77.8 Other enthesopathies, not elsewhere classified (principal); M75.51 Bursitis of right shoulder; M75.41 Impingement syndrome of right shoulder; S46.011A Strain of muscle(s) and tendon(s) of the rotator cuff of right shoulder, initial encounter
CPT/HCPCS: 73221

== ENCOUNTER 2020-11-06 02:16 | Outpatient (CLI) | payer MEDICAID, SELFPAY ==
[2020-11-06 11:33] LABS: Source Nasal/Nares
[2020-11-06 17:03] LABS: COVID-19 PCR Negative (Negative)
== END 2020-11-06 02:17 | disposition home or self-care (01) ==
LOC: LBO 02:17
PROVIDERS: PCP Family Medicine; Visit Provider Student in an Organized Health Care Education/Training Program
DX: Z20.822 Contact with and (suspected) exposure to COVID-19 (principal); Z01.818 Encounter for other preprocedural examination
CPT/HCPCS: 87635

== ENCOUNTER 2020-11-08 07:56 | Day surgery (SDC) | payer OTHER, SELFPAY ==
[2020-11-08] VITALS (7 sets, daily range): BP systolic 109–147; BP diastolic 55–97; PULSE 77–90; RESP 16–25; TEMP 36.5–36.6; O2SAT 93–99
[2020-11-08] MEDS: Lactated Ringers 1,000 ML 100 ML IV (08:42)
--- NOTE | 2020-11-08 12:00 | ROE_ITS ---
Date of service: 11/08/20 Time of Service: 11:00 Operative Note Operative Note DATE OF PROCEDURE: 11/08/20 PRE-OP DIAGNOSIS: Right: 1. ACJ joint arthritis 2. SLAP tear 3. LHB tendinopathy 4. Bursitis 5. Impingement POST-OP DIAGNOSIS: other Right: 1. ACJ joint arthritis 2. SLAP tear 3. LHB tendinopathy 4. Bursitis 5. Impingement 6. Rotator cuff tear: Full-thickness, retracted supraspinatus tear with articu lar sided infraspinatus tearing as well PROCEDURE: Right: 1. Rotator cuff repair, CPT# 28826. This involved repair of the supraspinatus using anchors and sutures to reattach the rotator cuff back to the footprint of the greater tuberosity. 2. Arthroscopic biceps tenodesis, CPT# 37812. This involved arthroscopically suturing and reattaching the long head of the biceps tendon to the proximal humerus at the superior margin of the bicipital groove with a screw at the correct tension. 3. Extensive debridement, CPT# 74023. This involved using arthroscopic hand instruments, power instruments, and radiofrequency instruments to release to release the long head of the biceps tendon and debride areas of labral tearing, synovitis, partial articular sided rotator cuff tearing working within the glenohumeral joint anteriorly, superiorly and posteriorly. The [facility] ligament was also released given significant rotator interval biceps and anterior supraspin atus injury to prevent postoperative stiffness. The anterior greater tuberosity was also debrided of frayed scar tendon and tissue down to healthy bleeding margin of bone. 4. Subacromial decompression with partial acromioplasty, CPT# 00046. This involved using arthroscopic power instruments and a radiofrequency wand to complete a bursectomy and remove bone spurs on the undersurface of the acromion. 5. Arthroscopic distal clavicle excision, CPT# 77907. This involved arthroscopically exposing the underside of the acromioclavicular joint, smoothing out bone spurs, and using a caesar to remove approximately 5 mm of the distal clavicle so there was no bone left engaging the acromion. The assistant tennis professional was medically required in order to help assist in techniques above, which require positioning the arm, holding the arthroscope, and manipulating multiple instruments and sutures at the same time. This cannot be done without the help of an experienced assistant tennis professional. SURGEON: Lc Mas SPRING COVERER: Grisel Lundberg ANESTHESIA TYPE: General LMA/ETT and Primary Nerve Block Refer to Anesthesia Record ESTIMATED BLOOD LOSS: 15 PATHOLOGY: none sent COMPLICATIONS: None Patient was transported to: PACU Patient's condition: stable Implants: Arthrex: 4.75mm SwiveLocks x 2 Indications: The patient was diagnosed with the above conditions and appropriately indicated for surgical intervention. Please see complete medical record for details. Findings: Exam under anesthesia: Full, symmetrical range of motion without any instability. Neither shoulder had any significant stiffness. Glenohumeral joint: Profound anterior and superior synovitis. Significant SLAP tear and adjacent long of the biceps anchor inflammation. Intact subscapularis. Largely intact articular cartilage. Significant full-thickness frayed degenerative retracted supraspinatus tear starting at the rotator interval and involving partial articular sided fraying and moderate tearing of the posterior supraspinatus and to a lesser extent the anterior infraspinatus. Subacromial space: Mild bursitis. Moderate distal clavicle acromion impingement. Mild undersurface acromion bone spur. Significant supraspinatus tendon remnant on anterior and central greater tuberosity. No infraspinatus bursal tear. Procedure Description: In the operating room, general anesthesia was induced. Bilateral shoulders were examined. The patient was positioned in the beachchair position. All bony prominences were well-padded. Preoperative antibiotics were administered. The shoulder was prepped and draped in the usual sterile fashion. The correct patient, procedure, and side of the procedure were all verified prior to incision. Starting through the posterior portal a standard complete diagnostic arthroscopy was performed of the glenohumeral joint including inspection of the long head of the biceps, anterior and superior labrum, subscapularis tendon, supraspinatus and infraspinatus tendons, and axillary recess. The glenoid and humeral head cartilage as well as the posterior labrum were inspected from an anterior viewing portal. Significant findings and interventions noted above. A superior anterolateral portal was established through the full-thickness anterior supraspinatus rotator cuff tear. Using a loop and tack method with a suture tape fiber link, the biceps tendon was secured and tenotomized from the superior labrum using arthroscopic scissors. Starting through the posterior portal, the arthroscope was directed into the subacromial space. A lateral 50 yard line lateral portal was created and Autumn cannula inserted. A combination of power instruments and a radiofrequency ablator were used to debride bursitis anteriorly, posteriorly, and laterally as well as expose and smooth bone spurring on the undersurface of the acromion. The coracoacromial ligament was only partially released. The bursectomy was completed viewing laterally and working from posteriorly and the rotator cuff was thoroughly inspected with findings noted above. The anterior portal was redirected towards the undersurface of the AC joint. A shaver and electrocautery device were used to clear soft tissue from the und ersurface of the AC joint. A high-speed shaver was then inserted and used to remove the distalmost 5 mm of the distal clavicle. Care was taken to alternate between working through the anterior portal and viewing through the anterior portal to ensure that proper amount of bone was removed and there was no engaging bone left behind especially superiorly. The FiberLink containing the biceps tendon was then withdrawn out the anterior portal to keep out of the way for rotator cuff repair preparation and for later planned arthroscopic incorporation and tenodesis. An additional posterior superior lateral portal was established. Combination of hand instruments and power instruments were used to debride the greater tuberosity of tendon remnant as well as expose supraspinatus tendon tear and de brided to healthy margin of tissue. There was significant fraying and degenerative tissue about the rotator cuff tear margins. Rotator cuff graspers and immobilizers confirmed appropriate reduction from posterior to anterior and medial to lateral of the full-thickness retracted component of the tear, which was worst anteriorly. The arm was positioned optimally for planned reduction and fixation. As the tendon had torn off the medial aspect of the greater tuberosity, there was not enough tendon for double row reduction compression technique. The decision was made to proceed with single medial row repair fixation. Starting centrally in the greater tuberosity at the posterior margin of the tear, a self retrieving suture passer was used to place an inverted horizontal mattress fiber tape suture. Self retrieving suture passer was then used to place a fiber link in cinch mode ripstop fashion between either end of the fiber tape mattress. Provisional reduction confirmed appropriate placement, and through a stab portal the punch was used to localize suture anchor placement, the sutures were withdrawn and passed through the anchor eyelet, and the suture anchor appropriately brought down to bone with sutures tensioned bringing the edge of the rotator cuff to the prepared bone surface adjacent to the tendon remnant centrally in the greater tuberosity. Next, a self retrieving suture passer was used to pass a horizontal inverted mattress suture similarly about the remaining anterior retracted aspect of the supraspinatus tear. Provisional reduction confirmed the remainder of the anterior aspect of the tear to prepared greater tuberosity bone reduced adjacent to greater tuberosity remnant tissue just posterior to the rotator interval. The biceps tendon FiberLink was then retrieved and brought out the superior anterior lateral portal with the fiber tape rotator cuff repair sutures. The punch was used to localize placement of the neck swivel lock anchor that was appropriate loaded with the rotator cuff repair sutures from medial to lateral in the biceps tenodesis sutures from lateral to medial, appropriate tension was placed, and the suture anchor secured to bone with excellent fixation. The supraspinous repair was inspected through range of motion and probed. There was excellent fixation strength and reduction considering degenerative poor tissue quality and retracted medial tear pattern. The biceps tend had secure fixation to the anteriormost anchor. The shoulder was drained of arthroscopic fluid. All portal sites were copiously irrigated. These incisions were closed using 3-0 Monocryl in a buried fashion, covered with Mastisol, Steri-Strips, Xeroform, dry gauze, and ABDs. The dressings were covered and secured with Medipore tape. The operative extremity was placed into a sling for immobilization. The patient awoke from anesthesia without complication and was transferred to the recovery room in a stable condition.
[2020-11-08] MEDS: EPINEPHrine 30 MG/30 ML VIAL (12:39)
--- NOTE | 2020-11-08 12:58 | PDOC.DSDIS_ITS ---
Discharge Plan Disposition Patient Disposition: HOME Condition: Stable Discharge Details Reason For Visit: Right shoulder surgery Attending Provider: Lc Mas Primary Care Provider: Maritza Cheatham Home Meds and New Rx's Prescriptions: New aspirin 81 mg tablet,delayed release (DR/EC) 81 mg PO DAILY 14 Days Qty: 14 RF: 0 naproxen 250 mg tablet 250 - 500 mg PO BID PRN (Reason: Moderate pain or swelling) Qty: 60 RF: 0 oxycodone 5 mg tablet 5 - 10 mg PO Q4H PRN (Reason: moderate to severe pain) Qty: 22 RF: 0 Continued omeprazole magnesium [Prilosec OTC] 20 mg Tablet,Delayed Release (Dr/Ec) 20 mg PO DAILY RF: 0 melatonin 3 mg Capsule 3 mg PO HS PRNRF: 0 Discontinued ibuprofen 200 mg tablet 200 mg PO Q6H PRNRF: 0 ibuprofen 800 mg tablet 800 mg PO BID PRN (Reason: pain, moderate) Qty: 60 RF: 0 Discharge Instructions Additional Instructions: Surgery: Shoulder arthroscopy with rotator cuff repair, biceps tenodesis, ex tensive debridement, subacromial decompression, and distal clavicle excision. Activity: You should keep your arm at your side in a neutral position at all times except for physical therapy. Do not try to lift or raise your arm using your own muscles. You should use the sling whenever you are out of the house. You may have to adjust the abduction pillow or remove it for comfort. At home it is best to remove the sling and rest the arm on a pillow at your side or support the operative side with your other hand. You may allow the arm to dangle at your side. A physical therapy prescription will be sent electronically to begin in about 1-2 weeks. Prescriptions: Aspirin 81 mg take 1 daily to prevent a blood clot for 2 weeks Naproxen 250 mg take 1-2 every 12 hours with a meal as needed for moderate pain Oxycodone 5 mg take 1-2 every 4-6 hours as needed for severe pain You may use [id number] Tylenol (acetaminophen) as needed for mild pain. These pain medications may be taken all at once or in different combinations as needed. Also, recommend Colace (docusate) as a stool softener as surgery and pain medicine cause constipation. Dressings: Remove shoulder bandage after 3 days. Leave the sticky Steri-Strips in place until they fall off or remove them after you shower. Cover the incisions with Band-Aids or leave them open to air. [The biceps bandage (inside upper arm) is glued on separately. You may leave this one on a few days longer if it is difficult to remove. There is also glue underneath this bandage that can be left in place until it peels off.] You may shower after 5 days. Follow-up: 10-[address] Mas (11/21/20 at 1:00 PM) You may take off the leg compression stockings this evening at home. You may also leave them on a few days longer if you have a history of leg swelling or edema. Let us know right away if you develop any redness, drainage, fevers, chest pain, or trouble breathing. Do not drink alcohol or drive for at least 24 hours after anesthesia. Please call the office during business hours with any questions or concerns. Referrals: Lc Mas MD [ [facility] STAFF PHYSICIAN] - Discharge Orders Discharge Orders: Discharge Order (Routine); Ordered 11/08/20 Ordered By: Lc Mas DS: Diagnosis Discharge Diagnosis (1) Bursitis of right shoulder: Status: Acute (2) Impingement syndrome of right shoulder: Status: Acute (3) Biceps tendinitis of right shoulder: Status: Acute (4) Arthritis of right acromioclavicular joint: Status: Acute (5) Traumatic tear of right rotator cuff: Status: Acute
[2020-11-08] MEDS: fentaNYL 100 MCG/2 ML VIAL IVP ×3 (13:20→13:40)
[2020-11-08] MEDS: oxyCODONE 5 MG TAB PO (15:07)
== END 2020-11-08 15:57 | disposition home or self-care (01) ==
PROVIDERS: PCP Family Medicine; Visit Provider Student in an Organized Health Care Education/Training Program
PROC: (CPT 29805; principal; 2020-11-08 10:00)
DX: M19.011 Primary osteoarthritis, right shoulder (principal); M75.51 Bursitis of right shoulder; M75.41 Impingement syndrome of right shoulder; M75.101 Unspecified rotator cuff tear or rupture of right shoulder, not specified as traumatic; M75.21 Bicipital tendinitis, right shoulder
CPT/HCPCS: 29823; 29824; 29826; 29827; 29828; 76942; 81025; J0131; J1100; J1885; J2001; J2250; J2405; J2704; J3010

== ENCOUNTER 2021-01-22 02:39 | Outpatient (CLI) | payer MEDICAID, SELFPAY ==
[2021-01-22 10:12] LABS: Source Nasal/Nares
[2021-01-22 13:25] LABS: COVID-19 PCR Negative (Negative)
== END 2021-01-22 02:40 | disposition home or self-care (01) ==
LOC: LBO 02:39
PROVIDERS: PCP Family Medicine; Visit Provider Surgery Vascular Surgery
DX: Z20.822 Contact with and (suspected) exposure to COVID-19 (principal); Z01.818 Encounter for other preprocedural examination
CPT/HCPCS: 87635

== ENCOUNTER 2022-02-18 15:34 | Outpatient (REF) | payer MEDICAID, SELFPAY ==
[2022-02-18 17:52] LABS: Bilirubin Moderate (Negative); Blood Negative (Negative); Clarity Sl Cloudy (Clear); Glucose Negative (Negative); Ketones 15 mg/dL (Negative); Leukocyte Esterase Negative (Negative); Nitrite Negative (Negative); Specific Gravity >= 1.030 (1.005-1.025); Urobilinogen 0.2 EU/dL (Up TO 0.2); pH 5.5 (5-8)
[2022-02-18 18:40] LABS: Bacteria Few HPF (Negative); Casts Negative LPF (Negative); Crystals Many Calcium Oxalate HPF (Negative); Epithelial Cells Many HPF (Negative); Mucus Negative (Negative); RBC Negative HPF (0-2)
[2022-02-18 18:41] LABS: C & S Indicated? No/Sq. Contamination
== END 2022-02-18 15:35 | disposition home or self-care (01) ==
LOC: NCHCN 15:34
PROVIDERS: PCP Family Medicine; Visit Provider Nurse Practitioner Family
DX: N39.0 Urinary tract infection, site not specified (principal)
CPT/HCPCS: 81003; 81015

== ENCOUNTER → 2022-02-21 15:14 | Outpatient (CLI) | payer MEDICAID, SELFPAY ==
--- NOTE | 2022-02-21 15:15 | DI.CT_ITS ---
Exam(s) CT ABDOMEN PELVIS WO EXAM: CT ABDOMEN PELVIS WO CLINICAL HISTORY: BACK PAIN M54.9 URINARY DISORDER N39.9. TECHNIQUE: Imaging Protocol: Axial computed tomography images with coronal and sagittal reformatted images were created and reviewed CONTRAST MATERIAL: Intravenous: none Oral: None COMPARISON: CT CT ABDOMEN PELVIS W from 01/11/2020 FINDINGS: VISUALIZED LUNG BASES: No nodules nor pleural effusions evident. ABDOMEN: There is no ascites. LIVER: Liver is somewhat hypodense implying an element of steatosis. There are no discrete focal hep atic lesions evident on this noninfused study. No dilatation of intrahepatic ducts GALLBLADDER/BILIARY: No obvious gallbladder pathology. CBD is not dilated. PANCREAS: Pancreas appears unremarkable. No obvious pancreatitis, as was evident on the December 2019 ekaterina dy. No evidence of pseudocyst. No pancreatic calcifications. No pancreatic atrophy and no signific ant dilatation of the pancreatic duct. The uncinate process retains normal triangular configuration. SPLEEN: Spleen size upper normal. Are too small calcific splenic granulomas ADRENALS: There are no significant adrenal masses. KIDNEYS:No cysts evident. No solid renal masses. No calculi nor hydronephrosis. . ABDOMINAL AORTA: Abdominal aorta is not enlarged. LYMPH NODES: There is no retroperitoneal nor paraaortic adenopathy. ABDOMINAL WALL: No evidence of significant anterior abdominal wall nor inguinal hernia. GI: There is no evidence of bowel obstruction, free air, nor abscess. PELVIS: LYMPH NODES: There is no intrapelvic nor inguinal adenopathy. GI: No evidence of appendicitis.No evidence of sigmoid diverticulitis. URINARY BLADDER: No calculi nor obvious masses evident REPRODUCTIVE: Uterus size is unremarkable. Right adnexa unremarkable. There is a 4 x 3 millimeter c alcification in the left ovary again noted. This is unchanged from 01/11/2020. left ovary size upper normal. OSSEOUS: No significant osseous lesions. Advanced chronic disc space narrowing at L5-S1 level again noted. Sacroiliac joints unremarkable. No fractures. IMPRESSION: 1. No evidence of obvious acute pancreatitis, as was evident on prior CT scan of December 2019. No eviden ce of pancreatic pseudocyst, pancreatic calcifications, nor obvious pancreatic mass. The pancreatic duct is not dilated. 2. Mild hepatic steatosis. No discrete focal hepatic lesions. 3. There is a 4 x 3 millimeter calcification left ovary again noted. Left ovary size is upper normal . Nevertheless, cannot exclude the possibility of dermoid, given the calcification within the ovary. Right ovary is not identified. No free fluid in the pelvis. RADIATION DOSE DELIVERED: 1,000.42mGy.cm Total DLP DATA REPOSITORY: All CT scans at this facility are submitted to the National Radiology Data Registry (NRDR) Dose Index Registry (DIR) with the [employer] (ACR). RADIATION OPTIMIZATION: All CT scans at this facility use at least one of these dose optimization te chniques: automated exposure control; mA and/or kV adjustment per patient size (includes targeted exa ms where dose is matched to clinical indication); or iterative reconstruction.
== END ==
PROVIDERS: PCP Family Medicine; Visit Provider Nurse Practitioner Family
DX: K76.0 Fatty (change of) liver, not elsewhere classified (principal); N83.8 Other noninflammatory disorders of ovary, fallopian tube and broad ligament; N39.9 Disorder of urinary system, unspecified; M54.9 Dorsalgia, unspecified
CPT/HCPCS: 74176

== ENCOUNTER 2022-02-21 18:27 | Outpatient (REF) | payer MEDICAID, SELFPAY ==
[2022-02-21 18:51] LABS: Anion Gap 9.4 mmol/L (3-11); BUN 10 mg/dL (7-18); CO2 24.6 mmol/L (21.0-32.0); CREATININE 0.9 mg/dL (0.55-1.02); Chloride 98 mmol/L (98-107); Glucose 158 mg/dL (74-106); Potassium 3.7 mmol/L (3.5-5.1); Sodium 132 mmol/L (136-145)
== END 2022-02-21 18:28 | disposition home or self-care (01) ==
LOC: NCHCN 18:27
PROVIDERS: PCP Family Medicine; Visit Provider Nurse Practitioner Family
DX: R39.89 Other symptoms and signs involving the genitourinary system (principal)
CPT/HCPCS: 80048

== ENCOUNTER 2022-10-08 11:00 | Outpatient (REF) | payer MEDICAID, SELFPAY ==
--- NOTE | 2022-10-08 16:00 | PAPFT_PTH ---
PATIENT: Barby Mosley LOC: NCN #:[id number] AGE/SX: 47/F ROOM: RE10/08/[address]: Maritza Cheatham : 1975 BED: DIS: 10/08/2022 SPEC #: [id number] RECD: 10/09/22 13:05 STATUS: NILESH REYNOSO #: [id number] DANA: 10/08/22 16:[address]: Maritza Cheatham DEPT: [facility] Cytology RECD BY: Lilli Vazquez Tissues: 1 - CX/ENDOCX FOR PAP SMEARS Procedures: PAP THIN PREP/UVM Screening HPV DNA PROBE Comments: [id number]
== END 2022-10-08 11:01 | disposition home or self-care (01) ==
LOC: NCHCN 11:00
PROVIDERS: PCP Family Medicine; Visit Provider Family Medicine
DX: Z12.4 Encounter for screening for malignant neoplasm of cervix (principal); Z11.51 Encounter for screening for human papillomavirus (HPV)
CPT/HCPCS: 88142; 87624

== ENCOUNTER 2022-12-23 04:15 | Outpatient (CLI) | payer MEDICAID, SELFPAY ==
--- NOTE | 2022-12-23 12:15 | DI.MAMMO_ITS ---
Exam(s) MAMMO SCREENING EXAM: MAMMO SCREENING CLINICAL HISTORY: SCREENING, WELL ADULT/PREVENTATIVE CARE, Z00.00. TECHNIQUE: Bilateral full field digital CC and MLO mammographic images were obtained with 3D tomosyn thesis and utilizing computer aided detection (CAD). COMPARISON: Prior mammogram of November 2014 was reviewed. No other mammograms the PACS system. FINDINGS: There has been no significant change in the appearance and distribution of the fibroglandular tissue. There are no CAD designations. There are no new spiculated masses nor malignant appearing microcalcification groups. Two separate areas of asymmetric tissue in the left breast are unchanged 2014 and therefore benign. There is no significant architectural distortion nor skin thickening-retraction. IMPRESSION: No radiographic evidence of malignancy. BI-RADS Category 1 - Negative Breast Density - Category B - Scattered areas of fibroglandular density Breast density Category C or D implies that the patient has dense breast tissue. Dense breast tissue can make it harder to find cancer on a mammogram. Dense breast tissue is also associated with an incr eased risk of breast cancer. This information about the result of the mammogram report was provided to the patient to raise their awareness. Use this report when you speak with the patient about their risks for breast cancer, which includes their family history. At that time, you may recommend additional screening tests (Ultrasoun d or MRI) as these tests may add significant information. A negative radiographic report should not delay biopsy if a dominant or clinically suspicious mass is present. Up to ten percent of cancers are not identified on mammography. A negative report may reinforce clinical impression. Adenosis and dense breasts may obscure an underlying neoplasm. False positive reports average 6 to 10%. Patient will receive a letter notifying them of these results.
== END 2022-12-23 04:35 ==
LOC: DI 04:15
PROVIDERS: PCP Family Medicine; Visit Provider Family Medicine
DX: Z00.00 Encounter for general adult medical examination without abnormal findings (principal)
CPT/HCPCS: 77063; 77067

== ENCOUNTER 2023-02-20 08:02 | Emergency (ER) | payer MEDICAID, SELFPAY ==
--- NOTE | 2023-02-20 07:45 | RT.EKG_ITS ---
APPROVED REPORT Exam: Resting ECG Reason for Exam: epigastric pain Patient Location: E HR:66 bpm ECG Measurements Heart Rate 66 AXIS UT 132 P 50 QRSd 84 QRS 20 QT 431 T 18 QTc 452 Conclusion Sinus rhythm...normal P axis, V-rate 60- 99 Low voltage, precordial leads...precordial leads <1.0mV
[2023-02-20 08:08] VITALS: BP 159/72; PULSE 63; RESP 20; TEMP 36.9; O2SAT 100
--- NOTE | 2023-02-20 08:17 | ED.GENADUL_ITS ---
Discharge Plan Disposition Patient Disposition: Home Condition: Stable Discharge Details Clinical Impression: Acute pancreatitis Primary Care Provider: Maritza Cheatham ED Provider: Lobito Scherer Home Meds and New Rx's Prescriptions: New ondansetron 4 mg tablet,disintegrating 4 mg PO Q8H PRN (Reason: nausea and vomiting) Qty: 30 0RF oxycodone 5 mg tablet 5 mg PO TID PRNQty: 12 0RF Continued diphenhydramine HCl [Benadryl Allergy] 25 mg tablet 25 mg PO QHS omeprazole magnesium [Prilosec OTC] 20 mg Tablet,Delayed Release (Dr/Ec) 20 mg PO DAILY melatonin 3 mg Capsule 3 mg PO HS PRN Discharge Instructions Instructions: Pancreatitis (ED), Hypokalemia (ED), Hypomagnesemia (ED) Additional Instructions: you have pancreatitis and your magnesium and potassium level were low follow up with your primary care provider within 1 week you can take 1000mg tylenol and 600mg ibuprofen every 6 hours if you feel more ill, have severe worsening pain or fevers return to the emergency department Medical Decision Making 47 yo female who states 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 She denies fevers, chills, chest pain, dyspnea, denies drug use. She arrives hemodynamically stable caox4 speaking clearly. She has tenderness in the mid abdomen, no abdominal distention. Given location of her pain and her history will proceed with cbc, cmp, lipase, and ct abdomen pelvis, and will also obtain ekg/troponin though her pain seems more in the mid abdomen and not epigastric. pt's lipase elevated and ct shows pancreatitis as well, no abscess or pseudocyst. Mag and K low. She feels better still has some mild pain. I recommended admission for monitoring and pain control and she declines as she states she'd rest better at home. She does have decision making capacity and given she has reassuring vitals do not feel she needs to sign out ama given she would only be requiring pain control at this time. Will provide short course of oxycodone, advised to f/u with pcp, return precautions given Differential Diagnosis Differential Diagnosis: pancreatitis, alcohol gastritis, cholecystitis Imaging Data Radiologic Study: Attestation: I personally reviewed and interpreted this imaging study as follows: Imaging: CT Scan Radiologist's impression: Patient Name: Barby Vera Unit #: [id number] Loc: ER ? Ordering Provider:Lobito Bedoya M.D. Status: REG ER ? Primary Care Provider: Maritza Cheatham Date of Exam: 02/20/23 Sex: F ? : 1975 Age: 47 ? Exam(s) a CT:CT abdomen & pelvis w Exam(s) CT ABDOMEN ? PELVIS W EXAM:? CT ABDOMEN ? PELVIS W CLINICAL HISTORY: ? mid abdomen pain, n/v.? TECHNIQUE:? Imaging Protocol: Axial computed tomography images with coronal and sagittal reformatted images were created and reviewed CONTRAST MATERIAL:? Intravenous: Omnipaque 350 Contrast volume:100 ml Oral:? / no COMPARISON:? CT CT ABDOMEN ? PELVIS W from 01/11/2020 US US OR ANESTHESIA from 11/08/[address] ABDOMEN ? PELVIS WO from 02/21/2022 FINDINGS: ABDOMEN: Lung Bases: Normal where visualized. Liver: Enlarged.? Severe hepatic steatosis.? No measurable mass. Gallbladder and biliary tract: No radiodense calculus or dilation.? Pancreas: Marked inflammation around the pancreas with surrounding fluid, consistent with pancreatitis.? No pseudocyst visible.? Fluid seen extending around spleen.? No evidence of hemorrhage or free air.? Adjacent inflammation of the duodenum..? Spleen: Normal. Kidneys: Normal size, contour and axis. No radiodense stones or obstructive uropathy. No suspicious masses seen. Adrenal glands: No masses seen. Abdominal Aorta: Abdominal portion non-dilated. Soft tissues: Unremarkable. PELVIS:? Bladder:? No gross wall thickening. No calculi.No focal mass. Bowel: No obstruction. ? No bowel wall thickening. Appendix normal. Peritoneal cavity: No ascites, collection or mesenteric inflammatory response. Bones: Degenerative disc changes L5-S1. Reproductive organs: Uterus mildly enlarged.? Lymph nodes: Unremarkable.? Impression: Findings consistent with severe pancreatitis with surrounding fluid and adjacent inflammation of the duodenum. Severe hepatic steatosis. No gallstones visible.? No biliary dilatation. Lab Data Lab results reviewed: Yes I reviewed the patient's lab results. ECG Data Attestation: I personally reviewed and interpreted this ECG (s) as follows: Prior ECG tracings: not available for review Interpretation: sinus rhythm, rate of 66, pr 132, qtc 452 HPI General Mode of arrival: EMS . Date/Time Provider Initiated Documentation: 02/20/23 08:07 . Limitations to Documentation: no limitations . Information obtained by: patient . History of Present Illness 47 year old F presents to the emergency department with the chief complaint of abdominal pain, described as severe, with intensity rated at 8. Quality is described as sharp, and is localized to the abdomen. Patient reports no radiation. Patient started experiencing this hour(s) (2) and it has been constant. No relieving factors improve symptom(s), No exacerbating factors reported . Patient notes nausea/vomiting; denies chest pain, fever/chills and shortness of breath. Patient did receive the following treatments prior to arrival, none Related Data Home Medications Medication Instructions Recorded Confirmed omeprazole magnesium 20 mg 20 mg PO DAILY 01/11/20 04/10/21 tablet,delayed release (Prilosec OTC) melatonin 3 mg capsule 3 mg PO HS PRN 11/08/20 04/10/21 diphenhydramine HCl 25 mg tablet 25 mg PO QHS 04/10/21 04/10/21 (Benadryl Allergy) ondansetron 4 mg disintegrating 4 mg PO Q8H PRN nausea and 02/20/23 tablet vomiting #30 tabs oxycodone 5 mg tablet 5 mg PO TID PRN #12 tabs 02/20/23 Previous Rx's Medication Instructions Recorded ondansetron 4 mg disintegrating 4 mg PO Q8H PRN nausea and 02/20/23 tablet vomiting #30 tabs oxycodone 5 mg tablet 5 mg PO TID PRN #12 tabs 02/20/23 Allergies Allergy/AdvReac Type Severity Reaction Status Date / Time No Known Allergies Allergy Verified 02/20/23 08:14 General Stated Complaint: Abd Prob LATRELL: 3 Review of Systems All systems reviewed & are unremarkable except as noted in HPI and below Constitutional Constitutional: Denies chills, Denies fever(s) and Denies weakness Cardiovascular Cardiovascular: Denies chest pain and Denies dyspnea Respiratory Respiratory: Denies cough and Denies dyspnea Gastrointestinal Gastrointestinal: Reports abdominal pain and Reports nausea Genitourinary Genitourinary: Denies dysuria Musculoskeletal Musculoskeletal: Denies joint swelling Integumentary/Breasts Skin/Breast: Denies rash Neurologic Neurologic: Denies weakness PFSH All Active Problems (Updated 02/20/23 @ 10:01 by Lobito Scherer MD) Acute pancreatitis (Acute) S/P arthroscopy of right shoulder (Acute 11/09/20) Shoulder arthroscopy with rotator cuff repair, biceps tenodesis, extensive debridement, subacromial decompression, and distal clavicle excision Traumatic tear of right rotator cuff (Acute) Contact dermatitis and eczema due to detergents (Acute) Dysesthesia (Acute) Bursitis of right shoulder (Acute) Impingement syndrome of right shoulder (Acute) Biceps tendinitis of right shoulder (Acute) Arthritis of right acromioclavicular joint (Acute) Medical History (Updated 02/20/23 @ 10:01 by Lobito Scherer MD) Acid reflux Surgical History (System 02/20/23 @ 08:14 by Sybil Russo) History of nasal septoplasty History of tubal ligation Hx of section x2 S/P right rotator cuff repair left Social History (System 02/20/23 @ 08:14 by Sybil Russo) Smoking/Tobacco Use Status: Current every day Tobacco Type: cigarettes Smoking packs per day: 1 Smoking cigarettes per day: 20.0 Smoking risk assessment performed?: Yes Alcohol Intake: never Drug use: Never Substance use type: does not use Housing: apartment Current gender identity: female Do you feel safe at home: Yes Do you feel safe in your relationship?: Yes Exam Const General: no acute distress Orientation: alert [facility] Head: normal to inspection Ears: external ears normal General nose exam: external nose normal Mouth: moist mucous membranes Eyes General: appearance normal, both eyes and all related structures Neck Neck: normal visual inspection Resp Effort & Inspection: normal respiratory effort and able to speak in complete sentences Cardio Rate: regular rate GI Palpation: soft and tender Skin General skin exam: no rashes or lesions noted Neuro General: patient alert and patient oriented x3 Extrem General: normal to inspection Psych Mental Status: mental status grossly normal Course Vital Signs Vital signs: Vital Signs Temperature 36.9 C 02/20/23 08:08 Pulse 63 02/20/23 08:08 Respiratory Rate 20 02/20/23 08:08 Blood Pressure 159/72 H 02/20/23 08:08 Pulse Oximetry 100 02/20/23 08:08 Temperature 36.9 C 02/20/23 08:08 Temperature Source Oral 02/20/23 08:08 Pulse 63 02/20/23 08:08 Respiratory Rate 20 02/20/23 08:08 Respiratory Effort Normal, Non-Labored 02/20/23 08:10 Blood Pressure 159/72 H 02/20/23 08:08 Pulse Oximetry 100 02/20/23 08:08 Oxygen Delivery Method Room Air 02/20/23 08:08 Oxygen Flow Rate 0 02/20/23 08:08 Pain Level 10 02/20/23 08:08
[2023-02-20] MEDS: Ketorolac 15 MG/ML VIAL IVP (08:46)
[2023-02-20] MEDS: Droperidol 5 MG/2 ML VIAL 2.5 MG IVP (08:47)
[2023-02-20] MEDS: HYDROmorphone 2 MG/ML SYR 1 MG IVP ×2 (08:47→10:05)
[2023-02-20] MEDS: Normal Saline 1,000 ML 1000 ML IV (08:48)
[2023-02-20] MEDS: Normal Saline Flush 10 ML SYR IVP (09:09)
[2023-02-20] MEDS: Normal Saline - Diluent 50 ML VIAL IJ (09:11)
[2023-02-20] MEDS: Omnipaque 350 MG/ML 500 ML BTL-Imaging package 100 ML IJ (09:12)
--- NOTE | 2023-02-20 09:15 | DI.CT_ITS ---
Exam(s) CT ABDOMEN PELVIS W EXAM: CT ABDOMEN PELVIS W CLINICAL HISTORY: mid abdomen pain, n/v. TECHNIQUE: Imaging Protocol: Axial computed tomography images with coronal and sagittal reformatted images were created and reviewed CONTRAST MATERIAL: Intravenous: Omnipaque 350 Contrast volume:100 ml Oral: / no COMPARISON: CT CT ABDOMEN PELVIS W from 01/11/2020 US US OR ANESTHESIA from 11/08/[address] ABDOMEN PELVIS WO from 02/21/2022 FINDINGS: ABDOMEN: Lung Bases: Normal where visualized. Liver: Enlarged. Severe hepatic steatosis. No measurable mass. Gallbladder and biliary tract: No radiodense calculus or dilation. Pancreas: Marked inflammation around the pancreas with surrounding fluid, consistent with pancreatiti s. No pseudocyst visible. Fluid seen extending around spleen. No evidence of hemorrhage or free ai r. Adjacent inflammation of the duodenum.. Spleen: Normal. Kidneys: Normal size, contour and axis. No radiodense stones or obstructive uropathy. No suspicious m asses seen. Adrenal glands: No masses seen. Abdominal Aorta: Abdominal portion non-dilated. Soft tissues: Unremarkable. PELVIS: Bladder: No gross wall thickening. No calculi.No focal mass. Bowel: No obstruction. No bowel wall thickening. Appendix normal. Peritoneal cavity: No ascites, collection or mesenteric inflammatory response. Bones: Degenerative disc changes L5-S1. Reproductive organs: Uterus mildly enlarged. Lymph nodes: Unremarkable. Impression: Findings consistent with severe pancreatitis with surrounding fluid and adjacent inflammation of the duodenum. Severe hepatic steatosis. No gallstones visible. No biliary dilatation. Findings called to Dr. Scherer of the emergency department. RADIATION DOSE DELIVERED: 1,144.98mGy.cm Total DLP DATA REPOSITORY: All CT scans at this facility are submitted to the National Radiology Data Registry (NRDR) Dose Index Registry (DIR) with the [employer] (ACR). RADIATION OPTIMIZATION: All CT scans at this facility use at least one of these dose optimization te chniques: automated exposure control; mA and/or kV adjustment per patient size (includes targeted exa ms where dose is matched to clinical indication); or iterative reconstruction.
[2023-02-20 09:18] LABS: Abs Immature Grans 0.04 10^3/uL (0.0-0.06); Absolute Basophil Count 0.07 10^3/uL (0.0-0.2); Absolute Eosinophil Count 0.11 10^3/uL (0.0-0.7); Absolute Monocyte Count 0.61 10^3/uL (0.1-0.8); Absolute Neutrophil Count 6.35 10^3/uL (1.2-6.7); Basophils % 0.8; Eosinophils % 1.3; HCT 45.5 % (36.0-46.0); HGB 15.7 g/dL (11.2-15.7); Immature Grans % 0.5; Lymphocytes % 16.3; MCH 33.8 pg (27.0-33.0); MCHC 34.5 % (32.0-36.0); MCV 98 fL (80-95); MPV 9.9 fL (8.0-11.0); Monocytes % 7.1; Platelet Count 182 10^3/uL (130-400); RBC 4.64 10^6/uL (3.93-5.22); RDW-SD 46.5 fL; WBC 8.58 10^3/uL (4.4-10.8)
[2023-02-20 09:28] LABS: PTT Activated 20.3 sec (21.5-31.9); Prothrombin Time 9.9 sec (9.3-11.0)
[2023-02-20 09:38] LABS: HCG Qual (Serum) Negative
[2023-02-20 09:47] LABS: ALT 74 U/L (14-59); AST 109 U/L (15-37); Albumin 3.1 g/dL (3.4-5.0); Alkaline Phosphatase 98 U/L (46-116); Anion Gap 11.1 mmol/L (3-11); BUN 11 mg/dL (7-18); Bilirubin, Total 0.5 mg/dL (0.2-1.0); CO2 27.9 mmol/L (21.0-32.0); CREATININE 1.1 mg/dL (0.55-1.02); Calcium 8.9 mg/dL (8.5-10.1); Chloride 103 mmol/L (98-107); Estimated GFR 61.98 (mL/min/1.73m2); Glucose 174 mg/dL (74-106); Magnesium 1.2 mg/dL (1.8-2.4); Potassium 3.4 mmol/L (3.5-5.1); Sodium 142 mmol/L (136-145); TSH (W/Ref FT4) 1.98 uIU/mL (0.36-3.74); Total Protein 6.5 g/dL (6.4-8.2)
[2023-02-20 09:48] LABS: ETHANOL BLOOD < 3.0 mg/dL (<10); Lipase > 375 U/L (16-77); Troponin I < 50 ng/L (<or=60)
[2023-02-20] MEDS: Potassium Chloride 20 MEQ TABCR 40 MEQ PO (10:05)
[2023-02-20] MEDS: Magnesium Oxide 400 MG TAB 800 MG PO (10:05)
[2023-02-20 10:29] VITALS: BP 132/86; PULSE 84; RESP 16; O2SAT 98
== END 2023-02-20 11:24 | disposition home or self-care (01) ==
PROVIDERS: Emergency Provider Emergency Medicine; PCP Family Medicine
DX: R10.13 Epigastric pain (principal); K85.90 Acute pancreatitis without necrosis or infection, unspecified; E87.6 Hypokalemia; E83.42 Hypomagnesemia; F10.10 Alcohol abuse, uncomplicated; F17.210 Nicotine dependence, cigarettes, uncomplicated
CPT/HCPCS: 80053; 83690; 93005; 96365; 96375; 96376; 99285; 74177; 80320; 83735; 84443; 84484; 84703; 85025; 85610; 85730; 93010; 99284; J1170; J1790; J1885

== ENCOUNTER 2023-03-04 15:29 | Outpatient (REF) | payer MEDICAID, SELFPAY ==
[2023-03-04 21:33] LABS: ALT 22 U/L (14-59); AST 29 U/L (15-37); Albumin 2.6 g/dL (3.4-5.0); Alkaline Phosphatase 131 U/L (46-116); Anion Gap 11.4 mmol/L (3-11); BUN 5 mg/dL (7-18); Bilirubin, Total 0.4 mg/dL (0.2-1.0); CO2 28.6 mmol/L (21.0-32.0); CREATININE 0.6 mg/dL (0.55-1.02); Calcium 8.9 mg/dL (8.5-10.1); Calculated LDL 74 mg/dL (<100); Chloride 100 mmol/L (98-107); Cholesterol 149 mg/dL (<200); Estimated GFR 110.65 (mL/min/1.73m2); Glucose 87 mg/dL (74-106); HDL Cholesterol 56 mg/dL (40-60); Magnesium 1.5 mg/dL (1.8-2.4); Potassium 4.7 mmol/L (3.5-5.1); Sodium 140 mmol/L (136-145); Total Protein 6.3 g/dL (6.4-8.2); Triglyceride 98 mg/dL (<150)
== END 2023-03-04 15:30 | disposition home or self-care (01) ==
LOC: NCHCN 15:29
PROVIDERS: PCP Family Medicine; Visit Provider Family Medicine
DX: K85.20 Alcohol induced acute pancreatitis without necrosis or infection (principal); K76.0 Fatty (change of) liver, not elsewhere classified
CPT/HCPCS: 80053; 80061; 83735

== ENCOUNTER 2023-03-05 01:56 | Outpatient (CLI) | payer MEDICAID, SELFPAY ==
--- NOTE | 2023-03-05 | DI.RAD_ITS ---
Exam(s) XR ABDOMEN FLAT UPRIGHT EXAM: XR ABDOMEN FLAT UPRIGHT CLINICAL HISTORY: VOMITING,R11.10,ABD DISTENSION,R14.0,ACUTE PANCREATITIS,K85.20,? OBS VS ILE. TECHNIQUE: 2D digital imaging was performed. COMPARISON: CT CT ABDOMEN PELVIS W from 02/20/2023 FINDINGS: 3 views Bowel gas pattern is nonspecific. No obvious bowel obstruction. No free air seen subjacent the ajay diaphragms. There is no overall graininess which may reflect presence of ascites. Indeed, recent CT scan of 01/24 revealed severe pancreatitis. No evidence of bone infarctions. No fractures IMPRESSION: No bowel obstruction. No free air possible ascites. See recent CT scan report of 02/20/2023. DATA REPOSITORY: RADIATION DOSE DELIVERED:
== END 2023-03-05 02:16 ==
LOC: DI 01:56
PROVIDERS: PCP Family Medicine; Visit Provider Family Medicine
DX: R11.10 Vomiting, unspecified (principal); R14.0 Abdominal distension (gaseous); K85.20 Alcohol induced acute pancreatitis without necrosis or infection
CPT/HCPCS: 74019

== ENCOUNTER → 2023-04-01 01:37 | Outpatient (CLI) | payer MEDICAID, SELFPAY ==
--- NOTE | 2023-04-01 08:00 | DI.US_ITS ---
Exam(s) US ABDOMEN EXAM: US ABDOMEN CLINICAL HISTORY: FATTY LIVER, K76.0 TECHNIQUE: Ultrasound abdomen performed using standard protocol. COMPARISON: CT CT ABDOMEN PELVIS W from 02/20/2023 FINDINGS: LIVER: Normal size. Increased echogenicity consistent with moderate fatty infiltration. Echogenicit y. No focal liver lesions are seen.. GALLBLADDER: No evidence of cholelithiasis. No evidence of wall thickening. No pericholecystic fluid identified. ANDERSEN'S SIGN: Negative. BILIARY SYSTEM: No intrahepatic or extrahepatic biliary ductal dilation. KIDNEYS: Kidneys are symmetric in size. No evidence of renal calculi. No evidence of hydronephrosis. No renal mass or cyst identified. PANCREAS: Normal where visualized. Fluid surrounding tail of pancreas measuring 6.7 x 6.2 x 6.8 cm. The this could represent a pseudocyst or residual fluid related to prior pancreatitis is noted on pr ior CT. SPLEEN: Not enlarged. ABDOMINAL AORTA AND IVC: Visualized portions normal caliber. ASCITES: None seen. IMPRESSION: Moderate hepatic steatosis. Fluid around tail of pancreas may represent pseudocyst versus residual fluid from prior episode of pa ncreatitis. DATA REPOSITORY:
== END ==
PROVIDERS: PCP Family Medicine; Visit Provider Family Medicine
DX: K76.0 Fatty (change of) liver, not elsewhere classified (principal)
CPT/HCPCS: 76700

== ENCOUNTER 2023-04-02 09:30 | Outpatient (REF) | payer MEDICAID, SELFPAY ==
[2023-04-02 16:40] LABS: ALT 33 U/L (14-59); AST 23 U/L (15-37); Albumin 3.8 g/dL (3.4-5.0); Alkaline Phosphatase 82 U/L (46-116); Anion Gap 8.6 mmol/L (3-11); BUN 11 mg/dL (7-18); Bilirubin, Total 0.7 mg/dL (0.2-1.0); CO2 29.4 mmol/L (21.0-32.0); CREATININE 0.9 mg/dL (0.55-1.02); Calcium 9.5 mg/dL (8.5-10.1); Calculated LDL 95 mg/dL (<100); Chloride 100 mmol/L (98-107); Cholesterol 196 mg/dL (<200); Estimated GFR 78.37 (mL/min/1.73m2); Glucose 172 mg/dL (74-106); HDL Cholesterol 83 mg/dL (40-60); Potassium 4.3 mmol/L (3.5-5.1); Sodium 138 mmol/L (136-145); Total Protein 7.2 g/dL (6.4-8.2); Triglyceride 92 mg/dL (<150)
== END 2023-04-02 09:31 | disposition home or self-care (01) ==
LOC: NCHCN 09:30
PROVIDERS: PCP Family Medicine; Visit Provider Family Medicine
DX: R11.0 Nausea (principal); K76.0 Fatty (change of) liver, not elsewhere classified; E66.8 Other obesity; Z00.00 Encounter for general adult medical examination without abnormal findings; R73.09 Other abnormal glucose
CPT/HCPCS: 80053; 80061

== ENCOUNTER 2023-05-08 14:03 | Outpatient (REF) | payer MEDICAID, SELFPAY | END 2023-05-08 14:04 | disposition home or self-care (01) | LOC: NCHCN 14:03 | PROVIDERS: PCP Family Medicine; Visit Provider Family Medicine | DX: R35.0 Frequency of micturition (principal); R82.79 Other abnormal findings on microbiological examination of urine | CPT/HCPCS: 87077; 87086; 87186 ==

== ENCOUNTER 2025-06-05 21:23 | Outpatient (REF) | payer SELFPAY ==
[2025-06-05 21:40] LABS: Glucose 500 mg/dL (Negative)
[2025-06-05 21:47] LABS: WBC 20-50 HPF (0-5)
[2025-06-05 21:48] LABS: C & S Indicated? Yes
== END 2025-06-05 21:24 | disposition home or self-care (01) ==
LOC: NCHCN 21:23
PROVIDERS: PCP Family Medicine; Visit Provider Family Medicine
DX: N39.0 Urinary tract infection, site not specified (principal)
CPT/HCPCS: 87077; 81003; 81015; 87086; 87186

== ENCOUNTER 2025-06-13 16:34 | Outpatient (CLI) | payer SELFPAY ==
--- NOTE | 2025-06-13 16:30 | RT.EKG_ITS ---
APPROVED REPORT Exam: Resting ECG Reason for Exam: chest discomfort Patient Location: O HR:135 bpm ECG Measurements Heart Rate 135 AXIS VA [id number] P [id number] QRSd 88 QRS 33 QT 322 T 75 QTc 483 Conclusion Sinus tachycardia Consider biatrial abnormality
== END 2025-06-13 16:35 | disposition home or self-care (01) ==
LOC: DI.CM 16:35
PROVIDERS: PCP Family Medicine; Visit Provider Nurse Practitioner Family
DX: R07.89 Other chest pain (principal)
CPT/HCPCS: 93010

== ENCOUNTER 2025-06-13 17:25 | Inpatient (IN) | payer SELFPAY ==
[2025-06-13] VITALS (25 sets, daily range): BP systolic 124–171; BP diastolic 85–138; PULSE 88–124; RESP 17–30; TEMP 36.4; O2SAT 96–100
--- NOTE | 2025-06-13 17:15 | DI.CT_ITS ---
Exam(s) CT ABDOMEN PELVIS W EXAM: CT ABDOMEN PELVIS W CLINICAL HISTORY: sepsis with flank pain TECHNIQUE: Imaging Protocol: Axial computed tomography images with coronal and sagittal reformatted images were created and reviewed. CONTRAST MATERIAL: Intravenous: Omnipaque 350 Contrast volume:75 mL Oral: No COMPARISON: CT CT ABDOMEN PELVIS WO from 02/21/[address] ABDOMEN PELVIS W from 02/20/2023 FINDINGS: ABDOMEN: Lung Bases: No acute abnormality. Liver: There is diffuse decreased attenuation of the liver consistent with fatty infiltration. No measurable mass. Portal, Superior Mesenteric, and Splenic Veins: Unremarkable. Gallbladder and Biliary Tract: No radiodense calculus or dilation. Pancreas: There is mild infiltration in the fat surrounding the pancreatic head and 3rd portion of the duodenum. There is a well-circumscribed in capsulated fluid collection measuring 7.1 x 4.4 x 7.5 cm. It is interposed between the stomach and the pancreas. Spleen: Normal. Adrenals: No masses seen. Kidneys: Normal size, contour and axis. There is mottled enhancement of both kidneys with areas of decreased attenuation throughout. There is no nephrolithiasis or hydronephrosis. The kidneys appear mildly enlarged bilaterally. The findings are suspicious for pyelonephritis. No masses seen. Abdominal Aorta: Abdominal portion non-dilated. Bowel: No obstruction or bowel wall thickening. There is no evidence of appendicitis. Peritoneal Cavity: No ascites, collection or mesenteric inflammatory response. No free air. Lymph Nodes: Within normal limits. Bones: Within normal limits for the patient's age. Soft Tissues: Unremarkable. PELVIS: Bladder: Symmetric distention, no gross wall thickening. Reproductive Organs: There is a calcification associated with the left ovary. This may represent a dermoid. Lymph Nodes: Within normal limits. Bones: Within normal limits for the patient's age. IMPRESSION: 1. Enlarged heterogeneously enhancing kidney suspicious for pyelonephritis. Neoplasm or infarcts are considered less likely. 2. 7.1 x 4.4 x 7.5 cm well-circumscribed fluid collection interposed between the stomach and the pancreas. This may represent a pancreatic pseudocyst. The patient has a history of pancreatitis radiographically. Abscess cannot be entirely excluded. 3. Calcification associated with the left ovary. This may represent a dermoid. Follow-up as clinically appropriate. This may include a pelvic ultrasound. 4. Mild infiltrative stranding seen around the 3rd portion of the duodenum and pancreas. This may represent a pancreatitis or duodenitis. 5. The preliminary [facility] report was reviewed. RADIATION DOSE DELIVERED: 759.08mGy.cm Total DLP DATA REPOSITORY: All CT scans at this facility are submitted to the National Radiology Data Registry (NRDR) Dose Index Registry (DIR) with the [employer] (ACR). RADIATION OPTIMIZATION: All CT scans at this facility use at least one of these dose optimization techniques: automated exposure control; mA and/or kV adjustment per patient size (includes targeted exams where dose is matched to clinical indication); or iterative reconstruction.
--- NOTE | 2025-06-13 17:15 | DI.RAD_ITS ---
Exam(s) XR PORTABLE CHEST AP EXAM: XR PORTABLE CHEST AP CLINICAL HISTORY: fever TECHNIQUE: 2D digital imaging was performed. COMPARISON: No exams were available for comparison FINDINGS: Exam limited by overlying monitoring leads and oxygen tubing. The lungs are suboptimally inflated. LUNGS: Clear. No pleural abnormality seen. HEART: Normal size. AORTA: Normal diameter. BONES: Unremarkable for age. Soft tissues: Unremarkable. IMPRESSION: No acute findings. DATA REPOSITORY: RADIATION DOSE DELIVERED:
--- NOTE | 2025-06-13 17:30 | RT.EKG_ITS ---
APPROVED REPORT Exam: Resting ECG Reason for Exam: Tachycardia Patient Location: E HR:109 bpm ECG Measurements Heart Rate 109 AXIS W[place] 120 P 76 QRSd 78 QRS 48 QT 327 T 84 QTc 440 Conclusion Sinus tachycardia...rate> 99 No STEMI
[2025-06-13 17:42] LABS: HCT 54.7 % (36.0-46.0); HGB 18.2 g/dL (11.2-15.7); MCH 32.5 pg (27.0-33.0); MCHC 33.3 % (32.0-36.0); MCV 98 fL (80-95); MPV 11.6 fL (8.0-11.0); Platelet Count 300 10^3/uL (130-400); RBC 5.60 10^6/uL (3.93-5.22); RDW 11.8 % (11.7-14.6); RDW-SD 42.7 fL; WBC 23.70 10^3/uL (4.4-10.8)
[2025-06-13 17:58] LABS: ALT 60 U/L (14-59); AST 23 U/L (15-37); Albumin 3.0 g/dL (3.4-5.0); Alkaline Phosphatase 190 U/L (46-116); Anion Gap 30.1 mmol/L (3-11); BUN 28 mg/dL (7-18); Bilirubin, Total 0.8 mg/dL (0.2-1.0); CO2 11.9 mmol/L (21.0-32.0); Calcium 10.4 mg/dL (8.5-10.1); Chloride 87 mmol/L (98-107); Potassium 5.2 mmol/L (3.5-5.1); RBC Morphology Normal; Sodium 129 mmol/L (136-145); Total Protein 8.8 g/dL (6.4-8.2)
[2025-06-13] MEDS: Calcium Gluconate 4.65 MEQ/10 ML VIAL 4.65 MG IVP (18:08)
[2025-06-13] MEDS: ACETAMINOPHEN 1,000 MG/100 ML BAG 400 MG IVPB (18:09)
[2025-06-13] MEDS: Lactated Ringers 1,000 ML 2000 ML IV ×2 (18:12→20:18)
[2025-06-13 18:16] LABS: Glucose 849 mg/dL (74-106)
[2025-06-13 18:18] LABS: Magnesium 2.1 mg/dL (1.8-2.4)
[2025-06-13 18:19] LABS: Troponin I < 4 ng/L (<or=51)
[2025-06-13 18:21] LABS: Lipase 1083 U/L (<78)
[2025-06-13] MEDS: Normal Saline Flush 10 ML SYR IVP (18:54)
[2025-06-13] MEDS: Omnipaque 350 MG/ML 100 ML BTL IJ (18:55)
[2025-06-13] MEDS: Normal Saline - Diluent 50 ML VIAL IJ (18:55)
[2025-06-13 19:02] LABS: Glucose 500 mg/dL (Negative)
[2025-06-13 19:08] LABS: RBC 20-50 HPF (0-2); WBC >50 HPF (0-5)
[2025-06-13 20:24] LABS: Anion Gap 27.6 mmol/L (3-11); BUN 26 mg/dL (7-18); CO2 11.4 mmol/L (21.0-32.0); Calcium 10.1 mg/dL (8.5-10.1); Chloride 91 mmol/L (98-107); Potassium 5.3 mmol/L (3.5-5.1); Sodium 130 mmol/L (136-145)
[2025-06-13 20:26] LABS: Glucose 712 mg/dL (74-106)
[2025-06-13 20:31] LABS: BE (Venous) -19 mmol/L (-2-3); HCO3 (Venous) 10 mmol/L (23-28); O2 Sat (Venous) 59 %; TCO2 (Venous) 9 mmol/L (24-29); pCO2 (Venous) 29 mmHg (41-51); pO2 (Venous) 34 mmHg
[2025-06-13] MEDS: INSULIN REGULAR IN 0.9 % NACL 100 UNIT/100 ML BAG IVINF ×2 (20:33→23:33)
--- NOTE | 2025-06-13 20:58 | DI.[facility]_ITS ---
PROCEDURE INFORMATION: Exam: CT Abdomen And Pelvis With Contrast Exam date and time: 06/13/2025 6:49 PM Age: 50 years old Clinical indication: Other: Sepsis with flank pain TECHNIQUE: Imaging protocol: Computed tomography of the abdomen and pelvis with contrast. Contrast material: OMNI 350; Contrast volume: 75 ml; Contrast route: INTRAVENOUS (IV); COMPARISON: CT ABDOMEN PELVIS W 02/20/2023 9:10 AM FINDINGS: Lungs: Lung bases are clear. Liver: The liver is diffusely hypodense suggesting fatty infiltration. Gallbladder and biliary ducts: The gallbladder is unremarkable. No biliary ductal dilatation. Pancreas: The head and body of the pancreas demonstrate overall normal enhancement and size. There is a lobulated intermediate density 7.2 x 7.2 x 4.5 cm cystic mass within the tail of the pancreas. This pancreatic cystic lesion demonstrates a thin rim without associated fat stranding. Trace fat stranding surrounds the head and body of the pancreas. Spleen: The spleen demonstrates normal size. Adrenal glands: The adrenal glands have a normal appearance. Kidneys and ureters: The kidneys are normal in size. However, there is no perinephric fat stranding, hydronephrosis, or hydroureter. Stomach and bowel: Unremarkable. No obstruction. No mucosal thickening. Appendix: The appendix is thin walled. Intraperitoneal space: Unremarkable. No free air. No significant fluid collection. Vasculature: The IVC and aorta have a normal appearance. Lymph nodes: No enlarged lymph nodes. Urinary bladder: The bladder is thin walled and fluid filled. Reproductive: The uterus has a normal appearance. Bones/joints: Bones have a normal appearance. No acute fracture or suspicious bone lesion. There is loss of the cortical/medullary differentiation within the central aspect of the kidneys bilaterally raising the suspicion for subtle renal nephrogram. Soft tissues: Unremarkable. IMPRESSION: 1. Large pancreatic cystic lesion which is likely associated with prior acute pancreatitis as visualized on the comparison CT dated 02/20/2023. Findings suggest pancreatic pseudocyst, although abscess can not be excluded. Of note, there are no ancillary findings to suggest acute inflammatory change such as associated fat stranding or wall thickening. 2. Mild peripancreatic fat stranding at the head and body of the pancreas. Findings may be associated with early or mild acute pancreatitis. Please correlate with serum amylase. 3. Hepatic steatosis. 4. Questionable striated nephrograms. Findings may be associated with early acute pyelonephritis. However, there are no ancillary findings such as perinephric fat stranding. Dictated and Authenticated by: Tamiko Cooper MD. Orderin Gage Farah MD
[2025-06-13] MEDS: cefTRIAXone 2 GM/50 ML BAG IVPB (21:16)
[2025-06-13 22:01] LABS: Troponin I < 4 ng/L (<or=51)
--- NOTE | 2025-06-13 22:14 | W.PM.HP.N ---
Date of service: 06/13/25 Time of Service: 22:14 Assessment and Plan Assessment and plan (1) DKA (diabetic ketoacidosis): Status: Acute Assessment and plan: Patient will be admitted to the ICU under DKA protocol. Will have regular glucometer checks every hour and his BMP every 2 hours. Insulin drip with a goal of dropping the glucose approximately 50 units an hour. Once she is better and after fluid resuscitation would consider starting her on an AMBAR inhibitor. Dietary consult has been placed. (2) Pyelonephritis: Status: Acute Assessment and plan: cw rocephin and await blood culture results. Urine culture as well. (3) UTI (urinary tract infection): Status: Acute Assessment and plan: Patient was recently diagnosed with a UTI but did not start a medication as prescribed. Her urinalysis here did not show any leukocytes or nitrites. This has to be viewed in light of the fact the patient did start her antibiotics. She was given Rocephin in the ED which will last for [address] scan is indicative of pyelonephritis and for daily antibiotics. She does have an elevated white count but this could be due to physiologic stress. Blood cultures have been ordered to the ER x 2 (4) Yeast infection: Status: Acute Assessment and plan: Patient was diagnosed with a vaginal yeast infection and was treated with fluconazole will continue with this for now (5) Hyponatremia: Status: Acute Assessment and plan: Laboratory sodium levels was 130 but corrected is 140. Continue with hydration (6) Hyperkalemia: Status: Acute Assessment and plan: Patient has mild hyperkalemia and most likely this will respond to fluid rehydration. Recheck labs as noted above (7) Elevated MCV: Status: Acute Assessment and plan: Will order a B12 and folate level. (8) Pancreatitis: Status: Chronic Assessment and plan: Patient does have an elevated lipase at 1083 will continue with IV fluid and n.p.o. status. Patient is asymptomatic and CT scan is fairly bland. (9) Polycythemia: Status: Acute Assessment and plan: Most likely due to volume contraction recheck in the a.m. (10) Respiratory acidosis: Status: Acute Assessment and plan: Due to underlying DKA should resolve with fluid resuscitation control of her sugars (11) Tachypnea: Status: Acute Assessment and plan: As above (12) Tobacco abuse: Status: Acute Assessment and plan: Patient states she only smokes about a pack a week and does not want nicotine replacement therapy at this time (13) ETOH abuse: Status: Chronic Assessment and plan: Patient does not voice significant alcohol use but her friends in the room told the nurses that she does drink a little bit more than she is endorsing. Continue with CIWA protocol for now and consider phenobarbital if necessary. Will will start on thiamine prophylactically. History of Present Illness History of Present Illness Chief Complaint: DKA Narrative: This is a 50-year-old female with a history of prediabetes as well as tobacco abuse and possible alcohol use/abuse who presented to her PCP approximately a week ago with signs and symptoms consistent with UTI. Patient was started on antibiotics since specifically Bactrim but did not take this medication for approximately 5 days. Per notes reviewed from urgent care she did get a urine culture which showed E. coli sensitive to Bactrim. Patient continued to feel worse and went to urgent care today and was noted to have significant hyperglycemia as well as respiratory acidosis and elevated ion gap as well as ketones in her urine. An A1c was also drawn and showed a value of 12.6 and a lipase level was also drawn which showed a value of 1083. Other laboratory abnormalities include hyponatremia that resolved with glucose correction as well as mild hypokalemia. Patient was noted to have polycythemia and elevated MCV as well. CT upper abdomen and pelvis had multiple findings and will add impression below. Patient also has respiratory acidosis. Patient is a full code. MPRESSION: 1. Enlarged heterogeneously enhancing kidney suspicious for pyelonephritis. Neoplasm or infarcts are considered less likely. 2. 7.1 x 4.4 x 7.5 cm well-circumscribed fluid collection interposed between the stomach and the pancreas. This may represent a pancreatic pseudocyst. The patient has a history of pancreatitis radiographically. Abscess cannot be entirely excluded. 3. Calcification associated with the left ovary. This may represent a dermoid. Follow-up as clinically appropriate. This may include a pelvic ultrasound. 4. Mild infiltrative stranding seen around the 3rd portion of the duodenum and pancreas. This may represent a pancreatitis or duodenitis. 5. The preliminary [facility] report was reviewed. Review of Systems Narrative: Positive for polyuria polydipsia polyphagia. Patient also endorses a recent UTI with consistent symptoms PFSH All Active Problems (Updated 06/13/25 @ 22:36 by Kevin Belle MD) Pyelonephritis (Acute) ETOH abuse (Chronic) Tobacco abuse (Acute) Tachypnea (Acute) Respiratory acidosis (Acute) Polycythemia (Acute) Pancreatitis (Chronic) Elevated MCV (Acute) Hyperkalemia (Acute) Hyponatremia (Acute) Yeast infection (Acute) UTI (urinary tract infection) (Acute) DKA (diabetic ketoacidosis) (Acute) S/P arthroscopy of right shoulder (Acute 11/09/20) Shoulder arthroscopy with rotator cuff repair, biceps tenodesis, extensive debridement, subacromial decompression, and distal clavicle excision Traumatic tear of right rotator cuff (Acute) Contact dermatitis and eczema due to detergents (Acute) Dysesthesia (Acute) Bursitis of right shoulder (Acute) Impingement syndrome of right shoulder (Acute) Biceps tendinitis of right shoulder (Acute) Arthritis of right acromioclavicular joint (Acute) Medical History (Updated 06/13/25 @ 22:36 by Kevin Belle MD) Acid reflux Surgical History (System 02/20/23 @ 08:14 by Sybil Russo) History of nasal septoplasty History of tubal ligation S/P right rotator cuff repair left Hx of section x2 Social History (System 02/20/23 @ 08:14 by Sybil Russo) Smoking/Tobacco Use Status: Current every day Tobacco Type: cigarettes Smoking packs per day: 1 Smoking cigarettes per day: 20.0 Smoking risk assessment performed?: Yes Alcohol Intake: never Drug use: Never Substance use type: does not use and marijuana Housing: apartment Current gender identity: female Do you feel safe at home: Yes Do you feel safe in your relationship?: Yes Meds Allergies and Home Medications Allergies Allergy/AdvReac Type Severity Reaction Status Date / Time No Known Allergies Allergy Verified 06/13/25 17:32 Home Medications Medication Instructions Recorded Confirmed Type omeprazole magnesium 20 mg 20 mg PO DAILY 01/11/20 06/13/25 History tablet,delayed release (Prilosec OTC) melatonin 3 mg capsule 3 mg PO HS PRN 11/08/20 06/13/25 History diphenhydramine HCl 25 mg tablet 25 mg PO QHS 04/10/21 06/13/25 History (Benadryl Allergy) ondansetron 4 mg disintegrating 4 mg PO Q8H PRN nausea and 02/20/23 06/13/25 Rx tablet vomiting #30 tabs oxycodone 5 mg tablet 5 mg PO TID PRN #12 tabs 02/20/23 06/13/25 Rx fluconazole 150 mg tablet 150 mg PO DAILY #3 tabs 11/13/24 06/13/25 Rx Exam Narrative Exam Narrative: HEENT-normal cephalic atraumatic mucous membranes are moist actually I do not see any plaques consistent with a yeast infection Neck-no lymphadenopathy no JVD Cardiovascular-tachycardia no murmur rubs or gallops Lungs-tachypnea but clear to auscultation Abdomen-soft nontender nondistended no tenderness to palpation in right upper quadrant Extremities-no sinus clubbing or edema bilaterally Neurologic-patient does respond to verbal stimuli but is quite somnolent and does not always give linear history Results Labs 06/13/25 17:00 06/13/25 19:44 Labs: Laboratory Results - last 24 hr 06/13/25 06/13/25 06/13/25 17:00 18:50 19:44 WBC 23.70 H RBC 5.60 H Hgb 18.2 H Hct 54.7 H MCV 98 H MCH 32.5 MCHC 33.3 RDW 11.8 Plt Count 300 MPV 11.6 H Immature Gran % See Differential Neutrophils % 94.0 Lymphocytes % 3.0 Monocytes % 3.0 Eosinophils % 0.0 Basophils % 0.0 Nucleated RBC % 0.0 Absolute Neutrophils 22.28 H Absolute Lymphocytes 0.71 L Absolute Monocytes 0.71 Absolute Eosinophils 0.00 Absolute Basophils 0.00 RBC Morphology Normal VBG pH VBG pCO2 VBG pO2 VBG HCO3 VBG Total CO2 VBG O2 Saturation VBG Base Excess VBG Lactate Sodium 129 L 130 L Potassium 5.2 H 5.3 H Chloride 87 L 91 L Carbon Dioxide 11.9 L 11.4 L Anion Gap 30.1 H 27.6 H BUN 28 H 26 H Creatinine 1.7 H 1.3 H Est GFR (CKD-EPI 2020) 36.08 49.79 Glucose 849 H* 712 H* Calcium 10.4 H 10.1 Magnesium 2.1 Total Bilirubin 0.8 AST 23 ALT 60 H Alkaline Phosphatase 190 H Troponin I < 4 < 4 Total Protein 8.8 H Albumin 3.0 L Lipase 1083 H Urine Color Yellow Urine Clarity Clear Urine pH 5.0 Ur Specific [place] 1.015 Urine Protein 30 H Urine Ketones >=160 H Urine Blood Large H Urine Nitrite Negative Urine Bilirubin Small H Urine Urobilinogen 0.2 Ur Leukocyte Esterase Negative Urine RBC 20-50 H Urine WBC >50 H Ur Epithelial Cells Moderate Urine Crystals Negative Urine Bacteria Many Urine Casts Negative Urine Mucus Negative Ur Culture Indicated? No/Sq. Contamination Urine Glucose 500 H 06/13/25 20:26 WBC RBC Hgb Hct MCV MCH MCHC RDW Plt Count MPV Immature Gran % Neutrophils % Lymphocytes % Monocytes % Eosinophils % Basophils % Nucleated RBC % Absolute Neutrophils Absolute Lymphocytes Absolute Monocytes Absolute Eosinophils Absolute Basophils RBC Morphology VBG pH 7.15 L* VBG pCO2 29 L VBG pO2 34 VBG HCO3 10 L VBG Total CO2 9 L VBG O2 Saturation 59 VBG Base Excess -19 L VBG Lactate 2.2 H* Sodium Potassium Chloride Carbon Dioxide Anion Gap BUN Creatinine Est GFR (CKD-EPI 2020) Glucose Calcium Magnesium Total Bilirubin AST ALT Alkaline Phosphatase Troponin I Total Protein Albumin Lipase Urine Color Urine Clarity Urine pH Ur Specific [place] Urine Protein Urine Ketones Urine Blood Urine Nitrite Urine Bilirubin Urine Urobilinogen Ur Leukocyte Esterase Urine RBC Urine WBC Ur Epithelial Cells Urine Crystals Urine Bacteria Urine Casts Urine Mucus Ur Culture Indicated? Urine Glucose Last Vital Signs Temp 36.4 C 06/13/25 17:31 Pulse 121 H 06/13/25 21:03 Resp 27 H 06/13/25 21:03 BP 157/138 H 06/13/25 21:03 Pulse Ox 98 06/13/25 21:03 Time Spent Time spent with Patient: >75 minutes Time was spent: preparing to see the patient(eg.review tests), obtaining and/or reviewing separately otained hiistory, ordering medications,tests, procedures, referring, communicating with other health care taker, indepentently interpreting results, counseling the patient and care coordination
--- NOTE | 2025-06-13 23:44 | W.ED.GENAD ---
Discharge Plan Discharge Details Chief Complaint: Diabetes Admit Date/Time: 06/13/25 22:04 Admit Provider: Kevin Belle Attending Provider: Kevin Belle Primary Care Provider: Maritza Cheatham ED Provider: Gagan Almonte Discharge Data Discharge Date/Time-TO BE ENTERED AT DEPARTURE: 06/13/25 22:36 HPI General Date/Time Provider Initiated Documentation: 06/13/25 17:36. HPI Narrative: MDM/Narrative: 50-year-old female presents for evaluation of hyperglycemia of newly diagnosed diabetes, in the setting of untreated UTI times at least 5 days. Vital signs notable for significant tachycardia, tachypnea. Given patient has untreated diabetes, as well as an untreated infection high concern for acute life-threatening processes such as DKA/HHS, pyelonephritis, perinephric abscess, renal abscess, sepsis among other etiologies. Will screen for significance electrolyte abnormalities, kidney injury, and treat with copious IV fluids antibiotics and suspect patient will likely need insulin therapy. Given severe vital sign abnormalities, suspect patient will likely require admission to the ICU. ED course: Initial blood sugars over 800, VBG consistent with primary metabolic acidosis with decompensated respiratory alkalosis, patient with elevated anion gap, acidemia consistent with DKA. As such we will start insulin drip, IV fluid repletion, will empirically treat with antibiotics given the history of UTI has been untreated. CT showing radiographic evidence of pyelonephritis as well as a large pancreatic pseudocyst, which clinically does not appear infected, there is also no radiographic findings to suggest acute infection of pseudocyst. Notably lipase is significantly elevated over thousand, consistent with patient's history of chronic pancreatitis. In further discussion patient also endorses significant alcohol use, typically drinking several beers at least daily. She does know however she has not drank in 4 to 5 days. At this time she no objective signs of alcohol withdrawal on exam, however will order [facility] protocol for further monitoring. Case discussed with Dr. Belle hospitalist will admit the patient to the ICU. Clinical impression: DKA Elevated anion gap acidosis Alcohol dependence UTI Pyelonephritis Pancreatic pseudocyst Disposition: ICU HPI: 50-year-old female with a past medical history of prediabetes, presents for evaluation of hyperglycemia, and UTI. Patient was evaluated at her her PCPs office today. Reportedly over the summer the patient had been diagnosed with prediabetes with an hemoglobin A1c that was nondiagnostic of diabetes at that time. However today repeat blood work found to have a A1c of 12.6. At this time the patient was called the office for reassessment by her primary care, who found the patient tachypneic, tachycardic, and apparently severely dehydrated prompting ambulance to be called for emergency evaluation. 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 Patient notes she has significant your polydipsia polyuria, feels significant malaise and nausea but denies any associated chest pain, back pain, abdominal pain or any other new or concerning symptoms. ROS: Negative besides as mentioned above Exam: Gen: A&O in acute distress, appears ill HEENT: NCAT, EOMI, not icteric. External ears normal. No rhinorrhea. Dry mucous membranes. Neck: Supple, full range of motion, no observable masses, No meningeal sign. Lungs: No Respiratory distress. Tachypnea CV: RRR, no edema. Abdomen: Soft, nondistended, No rebound tenderness. MSK: No joint swelling, no redness. Skin: No rashes, petechiae, lesions. Normal color per patient. Neuro: Normal Gait, Grossly intact. Psych: Appropriate for situation. Labs: 06/13/25 20:20 Blood Blood Culture - Pending 06/13/25 19:30 Blood Blood Culture - Pending Laboratory Tests Range/Units 06/13/25 06/13/25 06/13/25 17:00 18:50 19:44 WBC (4.4-10.8) 10^3/uL 23.70 H RBC (3.93-5.22) 10^6/uL 5.60 H Hgb (11.2-15.7) g/dL 18.2 H Hct (36.0-46.0) % 54.7 H MCV (80-95) fL 98 H MCH (27.0-33.0) pg 32.5 MCHC (32.0-36.0) % 33.3 RDW (11.7-14.6) % 11.8 Plt Count (130-400) 10^3/uL 300 MPV (8.0-11.0) fL 11.6 H Immature Gran % See Differential Neutrophils % % 94.0 Lymphocytes % % 3.0 Monocytes % % 3.0 Eosinophils % % 0.0 Basophils % % 0.0 Nucleated RBC % (0.0-0.3) % 0.0 Absolute Neutrophils (1.2-6.7) 10^3/uL 22.28 H Absolute Lymphocytes (1.2-3.4) 10^3/uL 0.71 L Absolute Monocytes (0.1-0.8) 10^3/uL 0.71 Absolute Eosinophils (0.0-0.7) 10^3/uL 0.00 Absolute Basophils (0.0-0.2) 10^3/uL 0.00 RBC Morphology Normal VBG pH (7.31-7.41) VBG pCO2 (41-51) mmHg VBG pO2 mmHg VBG HCO3 (23-28) mmol/L VBG Total CO2 (24-29) mmol/L VBG O2 Saturation % VBG Base Excess (-2-3) mmol/L VBG Lactate (<or=2.0) mmol/L Sodium (136-145) mmol/L 129 L 130 L Potassium (3.5-5.1) mmol/L 5.2 H 5.3 H Chloride (98-107) mmol/L 87 L 91 L Carbon Dioxide (21.0-32.0) mmol/L 11.9 L 11.4 L Anion Gap (3-11) mmol/L 30.1 H 27.6 H BUN (7-18) mg/dL 28 H 26 H Creatinine (0.55-1.02) mg/dL 1.7 H 1.3 H Est GFR (CKD-EPI 2020) (mL/min/1.73m2) 36.08 49.79 Glucose (74-106) mg/dL 849 H* 712 H* Calcium (8.5-10.1) mg/dL 10.4 H 10.1 Magnesium (1.8-2.4) mg/dL 2.1 Total Bilirubin (0.2-1.0) mg/dL 0.8 AST (15-37) U/L 23 ALT (14-59) U/L 60 H Alkaline Phosphatase (46-116) U/L 190 H Troponin I (<or=51) ng/L < 4 < 4 Total Protein (6.4-8.2) g/dL 8.8 H Albumin (3.4-5.0) g/dL 3.0 L Lipase (<78) U/L 1083 H Urine Color (Yellow) Yellow Urine Clarity (Clear) Clear Urine pH (5-8) 5.0 Ur Specific [place] (1.005-1.025) 1.015 Urine Protein (Neg-Trace) mg/dL 30 H Urine Ketones (Negative) mg/dL >=160 H Urine Blood (Negative) Large H Urine Nitrite (Negative) Negative Urine Bilirubin (Negative) Small H Urine Urobilinogen (Up to 0.2) mg/dL 0.2 Ur Leukocyte Esterase (Negative) Negative Urine RBC (0-2) HPF 20-50 H Urine WBC (0-5) HPF >50 H Ur Epithelial Cells (Negative) HPF Moderate Urine Crystals (Negative) HPF Negative Urine Bacteria (Negative) HPF Many Urine Casts (Negative) LPF Negative Urine Mucus (Negative) Negative Ur Culture Indicated? No/Sq. Contamination Urine Glucose (Negative) mg/dL 500 H Range/Units 06/13/25 20:26 WBC (4.4-10.8) 10^3/uL RBC (3.93-5.22) 10^6/uL Hgb (11.2-15.7) g/dL Hct (36.0-46.0) % MCV (80-95) fL MCH (27.0-33.0) pg MCHC (32.0-36.0) % RDW (11.7-14.6) % Plt Count (130-400) 10^3/uL MPV (8.0-11.0) fL Immature Gran % Neutrophils % % Lymphocytes % % Monocytes % % Eosinophils % % Basophils % % Nucleated RBC % (0.0-0.3) % Absolute Neutrophils (1.2-6.7) 10^3/uL Absolute Lymphocytes (1.2-3.4) 10^3/uL Absolute Monocytes (0.1-0.8) 10^3/uL Absolute Eosinophils (0.0-0.7) 10^3/uL Absolute Basophils (0.0-0.2) 10^3/uL RBC Morphology VBG pH (7.31-7.41) 7.15 L* VBG pCO2 (41-51) mmHg 29 L VBG pO2 mmHg 34 VBG HCO3 (23-28) mmol/L 10 L VBG Total CO2 (24-29) mmol/L 9 L VBG O2 Saturation % 59 VBG Base Excess (-2-3) mmol/L -19 L VBG Lactate (<or=2.0) mmol/L 2.2 H* Sodium (136-145) mmol/L Potassium (3.5-5.1) mmol/L Chloride (98-107) mmol/L Carbon Dioxide (21.0-32.0) mmol/L Anion Gap (3-11) mmol/L BUN (7-18) mg/dL Creatinine (0.55-1.02) mg/dL Est GFR (CKD-EPI 2020) (mL/min/1.73m2) Glucose (74-106) mg/dL Calcium (8.5-10.1) mg/dL Magnesium (1.8-2.4) mg/dL Total Bilirubin (0.2-1.0) mg/dL AST (15-37) U/L ALT (14-59) U/L Alkaline Phosphatase (46-116) U/L Troponin I (<or=51) ng/L Total Protein (6.4-8.2) g/dL Albumin (3.4-5.0) g/dL Lipase (<78) U/L Urine Color (Yellow) Urine Clarity (Clear) Urine pH (5-8) Ur Specific [place] (1.005-1.025) Urine Protein (Neg-Trace) mg/dL Urine Ketones (Negative) mg/dL Urine Blood (Negative) Urine Nitrite (Negative) Urine Bilirubin (Negative) Urine Urobilinogen (Up to 0.2) mg/dL Ur Leukocyte Esterase (Negative) Urine RBC (0-2) HPF Urine WBC (0-5) HPF Ur Epithelial Cells (Negative) HPF Urine Crystals (Negative) HPF Urine Bacteria (Negative) HPF Urine Casts (Negative) LPF Urine Mucus (Negative) Ur Culture Indicated? Urine Glucose (Negative) mg/dL Radiology: Exam(s) CT ABDOMEN PELVIS W EXAM: CT ABDOMEN PELVIS W CLINICAL HISTORY: sepsis with flank pain TECHNIQUE: Imaging Protocol: Axial computed tomography images with coronal and sagittal reformatted images were created and reviewed. CONTRAST MATERIAL: Intravenous: Omnipaque 350 Contrast volume:75 mL Oral: No COMPARISON: CT CT ABDOMEN PELVIS WO from 02/21/[address] ABDOMEN PELVIS W from 02/20/2023 FINDINGS: ABDOMEN: Lung Bases: No acute abnormality. Liver: There is diffuse decreased attenuation of the liver consistent with fatty infiltration. No measurable mass. Portal, Superior Mesenteric, and Splenic Veins: Unremarkable. Gallbladder and Biliary Tract: No radiodense calculus or dilation. Pancreas: There is mild infiltration in the fat surrounding the pancreatic head and 3rd portion of the duodenum. There is a well-circumscribed in capsulated fluid collection measuring 7.1 x 4.4 x 7.5 cm. It is interposed between the stomach and the pancreas. Spleen: Normal. Adrenals: No masses seen. Kidneys: Normal size, contour and axis. There is mottled enhancement of both kidneys with areas of decreased attenuation throughout. There is no nephrolithiasis or hydronephrosis. The kidneys appear mildly enlarged bilaterally. The findings are suspicious for pyelonephritis. No masses seen. Abdominal Aorta: Abdominal portion non-dilated. Bowel: No obstruction or bowel wall thickening. There is no evidence of appendicitis. Peritoneal Cavity: No ascites, collection or mesenteric inflammatory response. No free air. Lymph Nodes: Within normal limits. Bones: Within normal limits for the patient's age. Soft Tissues: Unremarkable. PELVIS: Bladder: Symmetric distention, no gross wall thickening. Reproductive Organs: There is a calcification associated with the left ovary. This may represent a dermoid. Lymph Nodes: Within normal limits. Bones: Within normal limits for the patient's age. IMPRESSION: 1. Enlarged heterogeneously enhancing kidney suspicious for pyelonephritis. Neoplasm or infarcts are considered less likely. 2. 7.1 x 4.4 x 7.5 cm well-circumscribed fluid collection interposed between the stomach and the pancreas. This may represent a pancreatic pseudocyst. The patient has a history of pancreatitis radiographically. Abscess cannot be entirely excluded. 3. Calcification associated with the left ovary. This may represent a dermoid. Follow-up as clinically appropriate. This may include a pelvic ultrasound. 4. Mild infiltrative stranding seen around the 3rd portion of the duodenum and pancreas. This may represent a pancreatitis or duodenitis. 5. The preliminary [facility] report was reviewed. Related Data Home Medications Medication Instructions Recorded Confirmed omeprazole magnesium 20 mg 20 mg PO DAILY 01/11/20 06/13/25 tablet,delayed release (Prilosec OTC) melatonin 3 mg capsule 3 mg PO HS PRN 11/08/20 06/13/25 diphenhydramine HCl 25 mg tablet 25 mg PO QHS 04/10/21 06/13/25 (Benadryl Allergy) ondansetron 4 mg disintegrating 4 mg PO Q8H PRN nausea and 02/20/23 06/13/25 tablet vomiting #30 tabs oxycodone 5 mg tablet 5 mg PO TID PRN #12 tabs 02/20/23 06/13/25 fluconazole 150 mg tablet 150 mg PO DAILY #3 tabs 11/13/24 06/13/25 Previous Rx's Medication Instructions Recorded ondansetron 4 mg disintegrating 4 mg PO Q8H PRN nausea and 02/20/23 tablet vomiting #30 tabs oxycodone 5 mg tablet 5 mg PO TID PRN #12 tabs 02/20/23 fluconazole 150 mg tablet 150 mg PO DAILY #3 tabs 11/13/24 Allergies Allergy/AdvReac Type Severity Reaction Status Date / Time No Known Allergies Allergy Verified 06/13/25 17:32 General Stated Complaint: Diabetes LATRELL: 3 Course Vital Signs Vital signs: Vital Signs Temperature 36.4 C 06/13/25 17:26 Pulse 123 H 06/13/25 17:26 Respiratory Rate 28 H 06/13/25 17:26 Blood Pressure 164/113 H 06/13/25 17:26 Pulse Oximetry 96 06/13/25 17:26 Temperature 36.4 C 06/13/25 17:31 Temperature Source Oral 06/13/25 17:31 Pulse 121 H 06/13/25 21:03 Pulse 118 H 06/13/25 21:03 Respiratory Rate 27 H 06/13/25 21:03 Blood Pressure 157/138 H 06/13/25 21:03 Blood Pressure Mean 144 06/13/25 21:03 Pulse Oximetry 98 06/13/25 21:03 Oxygen Delivery Method Nasal Cannula 06/13/25 17:31 Oxygen Flow Rate 4 06/13/25 17:31 Pain Level 0 06/13/25 17:31 Lab/Test Results Lab/Test Results: 06/13/25 20:20 Blood Blood Culture - Pending 06/13/25 19:30 Blood Blood Culture - Pending Laboratory Tests Range/Units 06/13/25 06/13/25 06/13/25 17:00 18:50 19:44 WBC (4.4-10.8) 10^3/uL 23.70 H RBC (3.93-5.22) 10^6/uL 5.60 H Hgb (11.2-15.7) g/dL 18.2 H Hct (36.0-46.0) % 54.7 H MCV (80-95) fL 98 H MCH (27.0-33.0) pg 32.5 MCHC (32.0-36.0) % 33.3 RDW (11.7-14.6) % 11.8 Plt Count (130-400) 10^3/uL 300 MPV (8.0-11.0) fL 11.6 H Immature Gran % See Differential Neutrophils % % 94.0 Lymphocytes % % 3.0 Monocytes % % 3.0 Eosinophils % % 0.0 Basophils % % 0.0 Nucleated RBC % (0.0-0.3) % 0.0 Absolute Neutrophils (1.2-6.7) 10^3/uL 22.28 H Absolute Lymphocytes (1.2-3.4) 10^3/uL 0.71 L Absolute Monocytes (0.1-0.8) 10^3/uL 0.71 Absolute Eosinophils (0.0-0.7) 10^3/uL 0.00 Absolute Basophils (0.0-0.2) 10^3/uL 0.00 RBC Morphology Normal VBG pH (7.31-7.41) VBG pCO2 (41-51) mmHg VBG pO2 mmHg VBG HCO3 (23-28) mmol/L VBG Total CO2 (24-29) mmol/L VBG O2 Saturation % VBG Base Excess (-2-3) mmol/L VBG Lactate (<or=2.0) mmol/L Sodium (136-145) mmol/L 129 L 130 L Potassium (3.5-5.1) mmol/L 5.2 H 5.3 H Chloride (98-107) mmol/L 87 L 91 L Carbon Dioxide (21.0-32.0) mmol/L 11.9 L 11.4 L Anion Gap (3-11) mmol/L 30.1 H 27.6 H BUN (7-18) mg/dL 28 H 26 H Creatinine (0.55-1.02) mg/dL 1.7 H 1.3 H Est GFR (CKD-EPI 2020) (mL/min/1.73m2) 36.08 49.79 Glucose (74-106) mg/dL 849 H* 712 H* Calcium (8.5-10.1) mg/dL 10.4 H 10.1 Magnesium (1.8-2.4) mg/dL 2.1 Total Bilirubin (0.2-1.0) mg/dL 0.8 AST (15-37) U/L 23 ALT (14-59) U/L 60 H Alkaline Phosphatase (46-116) U/L 190 H Troponin I (<or=51) ng/L < 4 < 4 Total Protein (6.4-8.2) g/dL 8.8 H Albumin (3.4-5.0) g/dL 3.0 L Lipase (<78) U/L 1083 H Urine Color (Yellow) Yellow Urine Clarity (Clear) Clear Urine pH (5-8) 5.0 Ur Specific [place] (1.005-1.025) 1.015 Urine Protein (Neg-Trace) mg/dL 30 H Urine Ketones (Negative) mg/dL >=160 H Urine Blood (Negative) Large H Urine Nitrite (Negative) Negative Urine Bilirubin (Negative) Small H Urine Urobilinogen (Up to 0.2) mg/dL 0.2 Ur Leukocyte Esterase (Negative) Negative Urine RBC (0-2) HPF 20-50 H Urine WBC (0-5) HPF >50 H Ur Epithelial Cells (Negative) HPF Moderate Urine Crystals (Negative) HPF Negative Urine Bacteria (Negative) HPF Many Urine Casts (Negative) LPF Negative Urine Mucus (Negative) Negative Ur Culture Indicated? No/Sq. Contamination Urine Glucose (Negative) mg/dL 500 H Range/Units 06/13/25 20:26 WBC (4.4-10.8) 10^3/uL RBC (3.93-5.22) 10^6/uL Hgb (11.2-15.7) g/dL Hct (36.0-46.0) % MCV (80-95) fL MCH (27.0-33.0) pg MCHC (32.0-36.0) % RDW (11.7-14.6) % Plt Count (130-400) 10^3/uL MPV (8.0-11.0) fL Immature Gran % Neutrophils % % Lymphocytes % % Monocytes % % Eosinophils % % Basophils % % Nucleated RBC % (0.0-0.3) % Absolute Neutrophils (1.2-6.7) 10^3/uL Absolute Lymphocytes (1.2-3.4) 10^3/uL Absolute Monocytes (0.1-0.8) 10^3/uL Absolute Eosinophils (0.0-0.7) 10^3/uL Absolute Basophils (0.0-0.2) 10^3/uL RBC Morphology VBG pH (7.31-7.41) 7.15 L* VBG pCO2 (41-51) mmHg 29 L VBG pO2 mmHg 34 VBG HCO3 (23-28) mmol/L 10 L VBG Total CO2 (24-29) mmol/L 9 L VBG O2 Saturation % 59 VBG Base Excess (-2-3) mmol/L -19 L VBG Lactate (<or=2.0) mmol/L 2.2 H* Sodium (136-145) mmol/L Potassium (3.5-5.1) mmol/L Chloride (98-107) mmol/L Carbon Dioxide (21.0-32.0) mmol/L Anion Gap (3-11) mmol/L BUN (7-18) mg/dL Creatinine (0.55-1.02) mg/dL Est GFR (CKD-EPI 2020) (mL/min/1.73m2) Glucose (74-106) mg/dL Calcium (8.5-10.1) mg/dL Magnesium (1.8-2.4) mg/dL Total Bilirubin (0.2-1.0) mg/dL AST (15-37) U/L ALT (14-59) U/L Alkaline Phosphatase (46-116) U/L Troponin I (<or=51) ng/L Total Protein (6.4-8.2) g/dL Albumin (3.4-5.0) g/dL Lipase (<78) U/L Urine Color (Yellow) Urine Clarity (Clear) Urine pH (5-8) Ur Specific [place] (1.005-1.025) Urine Protein (Neg-Trace) mg/dL Urine Ketones (Negative) mg/dL Urine Blood (Negative) Urine Nitrite (Negative) Urine Bilirubin (Negative) Urine Urobilinogen (Up to 0.2) mg/dL Ur Leukocyte Esterase (Negative) Urine RBC (0-2) HPF Urine WBC (0-5) HPF Ur Epithelial Cells (Negative) HPF Urine Crystals (Negative) HPF Urine Bacteria (Negative) HPF Urine Casts (Negative) LPF Urine Mucus (Negative) Ur Culture Indicated? Urine Glucose (Negative) mg/dL Critical Care Time Critical Care Time Critical Care Time: Yes Total Critical Care Time: 45 Attestation: Upon my evaluation, this patient had a high probability of imminent or life-threatening deterioration due to imminent cardiopulmonary collapse, metabolic derangement, which required my direct attention, intervention, and personal management. I have personally provided 45 minutes of critical care time exclusive of time spent on separately billable procedures. Time includes review of laboratory data, radiology results, discussion with consultants, and monitoring for potential decompensation. Interventions were performed as documented above, including monitoring of critical vital signs, ordering critical medications from bedside, and re-assessing effectiveness, repeating critical exam findings, and reviewing patients' chart. [facility] All Active Problems (Updated 06/13/25 @ 22:36 by Kevin Belle MD) Pyelonephritis (Acute) ETOH abuse (Chronic) Tobacco abuse (Acute) Tachypnea (Acute) Respiratory acidosis (Acute) Polycythemia (Acute) Pancreatitis (Chronic) Elevated MCV (Acute) Hyperkalemia (Acute) Hyponatremia (Acute) Yeast infection (Acute) UTI (urinary tract infection) (Acute) DKA (diabetic ketoacidosis) (Acute) S/P arthroscopy of right shoulder (Acute 11/09/20) Shoulder arthroscopy with rotator cuff repair, biceps tenodesis, extensive debridement, subacromial decompression, and distal clavicle excision Traumatic tear of right rotator cuff (Acute) Contact dermatitis and eczema due to detergents (Acute) Dysesthesia (Acute) Bursitis of right shoulder (Acute) Impingement syndrome of right shoulder (Acute) Biceps tendinitis of right shoulder (Acute) Arthritis of right acromioclavicular joint (Acute) Medical History (Updated 06/13/25 @ 22:36 by Kevin Belle MD) Acid reflux Surgical History (System 02/20/23 @ 08:14 by Sybil Russo) History of nasal septoplasty History of tubal ligation S/P right rotator cuff repair left Hx of section x2 Social History (System 02/20/23 @ 08:14 by Sybil Russo) Smoking/Tobacco Use Status: Current every day Tobacco Type: cigarettes Smoking packs per day: 1 Smoking cigarettes per day: 20.0 Smoking risk assessment performed?: Yes Alcohol Intake: never Drug use: Never Substance use type: does not use and marijuana Housing: apartment Current gender identity: female Do you feel safe at home: Yes Do you feel safe in your relationship?: Yes
[2025-06-13] MEDS: diphenhydrAMINE 25 MG CAP PO (23:47)
[2025-06-13 23:49] LABS: Anion Gap 21.8 mmol/L (3-11); BUN 24 mg/dL (7-18); CO2 17.2 mmol/L (21.0-32.0); Calcium 10.2 mg/dL (8.5-10.1); Chloride 96 mmol/L (98-107); Potassium 5.2 mmol/L (3.5-5.1); Sodium 135 mmol/L (136-145)
[2025-06-13 23:51] LABS: Glucose 527 mg/dL (74-106)
[2025-06-13] MEDS: Normal Saline 1,000 ML 250 ML IV (23:58)
[2025-06-13] MEDS: THIAMINE 500 MG in Normal Saline 100 ML 200 MG IVPB (23:59)
[2025-06-14] VITALS (19 sets, daily range): BP systolic 124–148; BP diastolic 82–105; PULSE 83–112; RESP 15–31; TEMP 36.5–36.9; O2SAT 96–100
--- NOTE | 2025-06-14 00:24 | W.PC.ACHO ---
Registration Status: ADM IN Primary Language: Preferred Language: Divehi ED Information & Data Chief Complaint Diabetes 06/13/25 23:54 Triage Note Pt seen at [facility] for UTI- pt 06/13/25 17:26 reports polydipsia, polyuria , fever, chills- dx prediabetes this January- A1C 12.5 Medical / Surgical History (This Medical Record has been edited. Action required.) Acid reflux (This Medical Record has been edited. Action required.) History of nasal septoplasty History of tubal ligation S/P right rotator cuff repair Hx of section Most Recent Vital Signs Temperature 36.4 C 06/13/25 17:31 Temperature Source Oral 06/13/25 17:31 Pulse 107 H 06/14/25 00:16 Pulse 106 H 06/14/25 00:16 Respiratory Rate 26 H 06/14/25 00:16 Blood Pressure 136/88 06/14/25 00:16 Blood Pressure Mean 102 06/14/25 00:16 Pulse Oximetry 99 06/14/25 00:16 Oxygen Delivery Method Nasal Cannula 06/13/25 17:31 Oxygen Flow Rate 4 06/13/25 17:31 Pain Level 0 06/13/25 17:31 Allergies No Known Allergies Allergy (Verified 06/13/25 17:32) Precautions Isolation Standard precaution 06/13/25 17:31 Active Medications Generic Name Dose Route Start Last Admin Trade Name Freq PRN Reason Stop Dose Admin Diphenhydramine HCl 25 mg 06/13/25 23:00 06/13/25 23:47 Diphenhydramine 25 Mg Cap PO 25 mg HS AUGUSTINE Administration Sodium Chloride 1,000 mls @ 250 mls/hr 06/13/25 22:08 06/13/25 23:58 Saline 1000ml Bag IV 06/14/25 02:07 250 mls/hr BOLUS ONE Administration Insulin Human Regular 100 unit in 100 mls @ 2 mls/hr 06/13/25 22:15 06/13/25 23:33 Myxredlin IVINF 0.5 unit/hr INFUSION AUGUSTINE 0.5 mls/hr Protocol Administration 2 UNIT/HR Thiamine HCl 500 mg/ Sodium 105 mls @ 200 mls/hr 06/13/25 22:45 06/13/25 23:59 Chloride IVPB 06/16/25 14:32 200 mls/hr 0600,1400,2200 AUGUSTINE Administration Iohexol 100 ml 06/13/25 19:00 06/13/25 18:55 Omnipaque 350 Mg/Ml 100 Ml Btl IJ 07/13/25 23:59 75 ml DIRECTED AUGUSTINE Administration Sodium Chloride 50 ml 06/13/25 19:00 06/13/25 18:55 Normal Saline - Diluent 50 Ml Vial IJ 50 ml DIRECTED AUGUSTINE Administration Sodium Chloride 0 ml 06/13/25 18:54 06/13/25 18:54 Normal Saline Flush 10 Ml Syr IVP 10 ml PRN PRN Administration IV IV Catheter Type [Right Saline Lock Forearm] IV Catheter Type [Right Peripheral IV Antecubital] IV Catheter Type [Left Peripheral IV Antecubital] IV Catheter Gauge [Right 18 Forearm] IV Catheter Gauge [Right 20 Antecubital] IV Catheter Gauge [Left 18 Antecubital] Diet Orders Category Date Time Status Diabetes Consistent CHO/Heart Healthy [DIET] Nutrition 06/14/25 Breakfast Active Diagnostics 06/14/25 06/14/25 06/14/25 Range/Units 22:15 20:15 18:15 WBC (4.4-10.8) 10^3/uL RBC (3.93-5.22) 10^6/uL Hgb (11.2-15.7) g/dL Hct (36.0-46.0) % MCV (80-95) fL MCH (27.0-33.0) pg MCHC (32.0-36.0) % RDW (11.7-14.6) % Plt Count (130-400) 10^3/uL MPV (8.0-11.0) fL Immature Gran % Neutrophils % % Lymphocytes % % Monocytes % % Eosinophils % % Basophils % % Nucleated RBC % (0.0-0.3) % Absolute Neutrophils (1.2-6.7) 10^3/uL Absolute Lymphocytes (1.2-3.4) 10^3/uL Absolute Monocytes (0.1-0.8) 10^3/uL Absolute Eosinophils (0.0-0.7) 10^3/uL Absolute Basophils (0.0-0.2) 10^3/uL RBC Morphology VBG pH (7.31-7.41) VBG pCO2 (41-51) mmHg VBG pO2 mmHg VBG HCO3 (23-28) mmol/L VBG Total CO2 (24-29) mmol/L VBG O2 Saturation % VBG Base Excess (-2-3) mmol/L VBG Lactate (<or=2.0) mmol/L Sodium Pending Pending Pending (136-145) mmol/L Potassium Pending Pending Pending (3.5-5.1) mmol/L Chloride Pending Pending Pending (98-107) mmol/L Carbon Dioxide Pending Pending Pending (21.0-32.0) mmol/L Anion Gap Pending Pending Pending (3-11) mmol/L BUN Pending Pending Pending (7-18) mg/dL Creatinine Pending Pending Pending (0.55-1.02) mg/dL Est GFR (CKD-EPI 2020) Pending Pending Pending (mL/min/1.73m2) Glucose Pending Pending Pending (74-106) mg/dL Calcium Pending Pending Pending (8.5-10.1) mg/dL Magnesium (1.8-2.4) mg/dL Total Bilirubin (0.2-1.0) mg/dL AST (15-37) U/L ALT (14-59) U/L Alkaline Phosphatase (46-116) U/L Troponin I (<or=51) ng/L Total Protein (6.4-8.2) g/dL Albumin (3.4-5.0) g/dL Triglycerides Total Cholesterol Lipase (<78) U/L Vitamin B12 Folate Urine Color (Yellow) Urine Clarity (Clear) Urine pH (5-8) Ur Specific Brun[place] (1.005-1.025) Urine Protein (Neg-Trace) mg/dL Urine Ketones (Negative) mg/dL Urine Blood (Negative) Urine Nitrite (Negative) Urine Bilirubin (Negative) Urine Urobilinogen (Up to 0.2) mg/dL Ur Leukocyte Esterase (Negative) Urine RBC (0-2) HPF Urine WBC (0-5) HPF Ur Epithelial Cells (Negative) HPF Urine Crystals (Negative) HPF Urine Bacteria (Negative) HPF Urine Casts (Negative) LPF Urine Mucus (Negative) Ur Culture Indicated? Urine Glucose (Negative) mg/dL B-Hydroxybutyrate 06/14/25 06/14/25 06/14/25 Range/Units 16:15 14:15 12:15 WBC (4.4-10.8) 10^3/uL RBC (3.93-5.22) 10^6/uL Hgb (11.2-15.7) g/dL Hct (36.0-46.0) % MCV (80-95) fL MCH (27.0-33.0) pg MCHC (32.0-36.0) % RDW (11.7-14.6) % Plt Count (130-400) 10^3/uL MPV (8.0-11.0) fL Immature Gran % Neutrophils % % Lymphocytes % % Monocytes % % Eosinophils % % Basophils % % Nucleated RBC % (0.0-0.3) % Absolute Neutrophils (1.2-6.7) 10^3/uL Absolute Lymphocytes (1.2-3.4) 10^3/uL Absolute Monocytes (0.1-0.8) 10^3/uL Absolute Eosinophils (0.0-0.7) 10^3/uL Absolute Basophils (0.0-0.2) 10^3/uL RBC Morphology VBG pH (7.31-7.41) VBG pCO2 (41-51) mmHg VBG pO2 mmHg VBG HCO3 (23-28) mmol/L VBG Total CO2 (24-29) mmol/L VBG O2 Saturation % VBG Base Excess (-2-3) mmol/L VBG Lactate (<or=2.0) mmol/L Sodium Pending Pending Pending (136-145) mmol/L Potassium Pending Pending Pending (3.5-5.1) mmol/L Chloride Pending Pending Pending (98-107) mmol/L Carbon Dioxide Pending Pending Pending (21.0-32.0) mmol/L Anion Gap Pending Pending Pending (3-11) mmol/L BUN Pending Pending Pending (7-18) mg/dL Creatinine Pending Pending Pending (0.55-1.02) mg/dL Est GFR (CKD-EPI 2020) Pending Pending Pending (mL/min/1.73m2) Glucose Pending Pending Pending (74-106) mg/dL Calcium Pending Pending Pending (8.5-10.1) mg/dL Magnesium (1.8-2.4) mg/dL Total Bilirubin (0.2-1.0) mg/dL AST (15-37) U/L ALT (14-59) U/L Alkaline Phosphatase (46-116) U/L Troponin I (<or=51) ng/L Total Protein (6.4-8.2) g/dL Albumin (3.4-5.0) g/dL Triglycerides Total Cholesterol Lipase (<78) U/L Vitamin B12 Folate Urine Color (Yellow) Urine Clarity (Clear) Urine pH (5-8) Ur Specific [place] (1.005-1.025) Urine Protein (Neg-Trace) mg/dL Urine Ketones (Negative) mg/dL Urine Blood (Negative) Urine Nitrite (Negative) Urine Bilirubin (Negative) Urine Urobilinogen (Up to 0.2) mg/dL Ur Leukocyte Esterase (Negative) Urine RBC (0-2) HPF Urine WBC (0-5) HPF Ur Epithelial Cells (Negative) HPF Urine Crystals (Negative) HPF Urine Bacteria (Negative) HPF Urine Casts (Negative) LPF Urine Mucus (Negative) Ur Culture Indicated? Urine Glucose (Negative) mg/dL B-Hydroxybutyrate 06/14/25 06/14/25 06/14/25 Range/Units 10:15 08:15 06:15 WBC (4.4-10.8) 10^3/uL RBC (3.93-5.22) 10^6/uL Hgb (11.2-15.7) g/dL Hct (36.0-46.0) % MCV (80-95) fL MCH (27.0-33.0) pg MCHC (32.0-36.0) % RDW (11.7-14.6) % Plt Count (130-400) 10^3/uL MPV (8.0-11.0) fL Immature Gran % Neutrophils % % Lymphocytes % % Monocytes % % Eosinophils % % Basophils % % Nucleated RBC % (0.0-0.3) % Absolute Neutrophils (1.2-6.7) 10^3/uL Absolute Lymphocytes (1.2-3.4) 10^3/uL Absolute Monocytes (0.1-0.8) 10^3/uL Absolute Eosinophils (0.0-0.7) 10^3/uL Absolute Basophils (0.0-0.2) 10^3/uL RBC Morphology VBG pH (7.31-7.41) VBG pCO2 (41-51) mmHg VBG pO2 mmHg VBG HCO3 (23-28) mmol/L VBG Total CO2 (24-29) mmol/L VBG O2 Saturation % VBG Base Excess (-2-3) mmol/L VBG Lactate (<or=2.0) mmol/L Sodium Pending Pending Pending (136-145) mmol/L Potassium Pending Pending Pending (3.5-5.1) mmol/L Chloride Pending Pending Pending (98-107) mmol/L Carbon Dioxide Pending Pending Pending (21.0-32.0) mmol/L Anion Gap Pending Pending Pending (3-11) mmol/L BUN Pending Pending Pending (7-18) mg/dL Creatinine Pending Pending Pending (0.55-1.02) mg/dL Est GFR (CKD-EPI 2020) Pending Pending Pending (mL/min/1.73m2) Glucose Pending Pending Pending (74-106) mg/dL Calcium Pending Pending Pending (8.5-10.1) mg/dL Magnesium (1.8-2.4) mg/dL Total Bilirubin (0.2-1.0) mg/dL AST (15-37) U/L ALT (14-59) U/L Alkaline Phosphatase (46-116) U/L Troponin I (<or=51) ng/L Total Protein (6.4-8.2) g/dL Albumin (3.4-5.0) g/dL Triglycerides Total Cholesterol Lipase (<78) U/L Vitamin B12 Folate Urine Color (Yellow) Urine Clarity (Clear) Urine pH (5-8) Ur Specific Brun[place] (1.005-1.025) Urine Protein (Neg-Trace) mg/dL Urine Ketones (Negative) mg/dL Urine Blood (Negative) Urine Nitrite (Negative) Urine Bilirubin (Negative) Urine Urobilinogen (Up to 0.2) mg/dL Ur Leukocyte Esterase (Negative) Urine RBC (0-2) HPF Urine WBC (0-5) HPF Ur Epithelial Cells (Negative) HPF Urine Crystals (Negative) HPF Urine Bacteria (Negative) HPF Urine Casts (Negative) LPF Urine Mucus (Negative) Ur Culture Indicated? Urine Glucose (Negative) mg/dL B-Hydroxybutyrate 06/14/25 06/14/25 06/14/25 Range/Units 05:35 04:15 02:15 WBC (4.4-10.8) 10^3/uL RBC (3.93-5.22) 10^6/uL Hgb (11.2-15.7) g/dL Hct (36.0-46.0) % MCV (80-95) fL MCH (27.0-33.0) pg MCHC (32.0-36.0) % RDW (11.7-14.6) % Plt Count (130-400) 10^3/uL MPV (8.0-11.0) fL Immature Gran % Neutrophils % % Lymphocytes % % Monocytes % % Eosinophils % % Basophils % % Nucleated RBC % (0.0-0.3) % Absolute Neutrophils (1.2-6.7) 10^3/uL Absolute Lymphocytes (1.2-3.4) 10^3/uL Absolute Monocytes (0.1-0.8) 10^3/uL Absolute Eosinophils (0.0-0.7) 10^3/uL Absolute Basophils (0.0-0.2) 10^3/uL RBC Morphology VBG pH (7.31-7.41) VBG pCO2 (41-51) mmHg VBG pO2 mmHg VBG HCO3 (23-28) mmol/L VBG Total CO2 (24-29) mmol/L VBG O2 Saturation % VBG Base Excess (-2-3) mmol/L VBG Lactate (<or=2.0) mmol/L Sodium Pending Pending (136-145) mmol/L Potassium Pending Pending (3.5-5.1) mmol/L Chloride Pending Pending (98-107) mmol/L Carbon Dioxide Pending Pending (21.0-32.0) mmol/L Anion Gap Pending Pending (3-11) mmol/L BUN Pending Pending (7-18) mg/dL Creatinine Pending Pending (0.55-1.02) mg/dL Est GFR (CKD-EPI 2020) Pending Pending (mL/min/1.73m2) Glucose Pending Pending (74-106) mg/dL Calcium Pending Pending (8.5-10.1) mg/dL Magnesium (1.8-2.4) mg/dL Total Bilirubin (0.2-1.0) mg/dL AST (15-37) U/L ALT (14-59) U/L Alkaline Phosphatase (46-116) U/L Troponin I (<or=51) ng/L Total Protein (6.4-8.2) g/dL Albumin (3.4-5.0) g/dL Triglycerides Pending Total Cholesterol Pending Lipase Pending (<78) U/L Vitamin B12 Pending Folate Pending Urine Color (Yellow) Urine Clarity (Clear) Urine pH (5-8) Ur Specific Brun[place] (1.005-1.025) Urine Protein (Neg-Trace) mg/dL Urine Ketones (Negative) mg/dL Urine Blood (Negative) Urine Nitrite (Negative) Urine Bilirubin (Negative) Urine Urobilinogen (Up to 0.2) mg/dL Ur Leukocyte Esterase (Negative) Urine RBC (0-2) HPF Urine WBC (0-5) HPF Ur Epithelial Cells (Negative) HPF Urine Crystals (Negative) HPF Urine Bacteria (Negative) HPF Urine Casts (Negative) LPF Urine Mucus (Negative) Ur Culture Indicated? Urine Glucose (Negative) mg/dL B-Hydroxybutyrate 06/14/25 06/13/25 06/13/25 Range/Units 00:15 23:12 22:15 WBC (4.4-10.8) 10^3/uL RBC (3.93-5.22) 10^6/uL Hgb (11.2-15.7) g/dL Hct (36.0-46.0) % MCV (80-95) fL MCH (27.0-33.0) pg MCHC (32.0-36.0) % RDW (11.7-14.6) % Plt Count (130-400) 10^3/uL MPV (8.0-11.0) fL Immature Gran % Neutrophils % % Lymphocytes % % Monocytes % % Eosinophils % % Basophils % % Nucleated RBC % (0.0-0.3) % Absolute Neutrophils (1.2-6.7) 10^3/uL Absolute Lymphocytes (1.2-3.4) 10^3/uL Absolute Monocytes (0.1-0.8) 10^3/uL Absolute Eosinophils (0.0-0.7) 10^3/uL Absolute Basophils (0.0-0.2) 10^3/uL RBC Morphology VBG pH (7.31-7.41) VBG pCO2 (41-51) mmHg VBG pO2 mmHg VBG HCO3 (23-28) mmol/L VBG Total CO2 (24-29) mmol/L VBG O2 Saturation % VBG Base Excess (-2-3) mmol/L VBG Lactate (<or=2.0) mmol/L Sodium Pending 135 L Pending (136-145) mmol/L Potassium Pending 5.2 H Pending (3.5-5.1) mmol/L Chloride Pending 96 L Pending (98-107) mmol/L Carbon Dioxide Pending 17.2 L Pending (21.0-32.0) mmol/L Anion Gap Pending 21.8 H Pending (3-11) mmol/L BUN Pending 24 H Pending (7-18) mg/dL Creatinine Pending 1.3 H Pending (0.55-1.02) mg/dL Est GFR (CKD-EPI 2020) Pending 49.79 Pending (mL/min/1.73m2) Glucose Pending 527 H* Pending (74-106) mg/dL Calcium Pending 10.2 H Pending (8.5-10.1) mg/dL Magnesium (1.8-2.4) mg/dL Total Bilirubin (0.2-1.0) mg/dL AST (15-37) U/L ALT (14-59) U/L Alkaline Phosphatase (46-116) U/L Troponin I (<or=51) ng/L Total Protein (6.4-8.2) g/dL Albumin (3.4-5.0) g/dL Triglycerides Total Cholesterol Lipase (<78) U/L Vitamin B12 Folate Urine Color (Yellow) Urine Clarity (Clear) Urine pH (5-8) Ur Specific [place] (1.005-1.025) Urine Protein (Neg-Trace) mg/dL Urine Ketones (Negative) mg/dL Urine Blood (Negative) Urine Nitrite (Negative) Urine Bilirubin (Negative) Urine Urobilinogen (Up to 0.2) mg/dL Ur Leukocyte Esterase (Negative) Urine RBC (0-2) HPF Urine WBC (0-5) HPF Ur Epithelial Cells (Negative) HPF Urine Crystals (Negative) HPF Urine Bacteria (Negative) HPF Urine Casts (Negative) LPF Urine Mucus (Negative) Ur Culture Indicated? Urine Glucose (Negative) mg/dL B-Hydroxybutyrate 06/13/25 06/13/25 06/13/25 Range/Units 20:26 19:44 18:50 WBC (4.4-10.8) 10^3/uL RBC (3.93-5.22) 10^6/uL Hgb (11.2-15.7) g/dL Hct (36.0-46.0) % MCV (80-95) fL MCH (27.0-33.0) pg MCHC (32.0-36.0) % RDW (11.7-14.6) % Plt Count (130-400) 10^3/uL MPV (8.0-11.0) fL Immature Gran % Neutrophils % % Lymphocytes % % Monocytes % % Eosinophils % % Basophils % % Nucleated RBC % (0.0-0.3) % Absolute Neutrophils (1.2-6.7) 10^3/uL Absolute Lymphocytes (1.2-3.4) 10^3/uL Absolute Monocytes (0.1-0.8) 10^3/uL Absolute Eosinophils (0.0-0.7) 10^3/uL Absolute Basophils (0.0-0.2) 10^3/uL RBC Morphology VBG pH 7.15 L* (7.31-7.41) VBG pCO2 29 L (41-51) mmHg VBG pO2 34 mmHg VBG HCO3 10 L (23-28) mmol/L VBG Total CO2 9 L (24-29) mmol/L VBG O2 Saturation 59 % VBG Base Excess -19 L (-2-3) mmol/L VBG Lactate 2.2 H* (<or=2.0) mmol/L Sodium 130 L (136-145) mmol/L Potassium 5.3 H (3.5-5.1) mmol/L Chloride 91 L (98-107) mmol/L Carbon Dioxide 11.4 L (21.0-32.0) mmol/L Anion Gap 27.6 H (3-11) mmol/L BUN 26 H (7-18) mg/dL Creatinine 1.3 H (0.55-1.02) mg/dL Est GFR (CKD-EPI 2020) 49.79 (mL/min/1.73m2) Glucose 712 H* (74-106) mg/dL Calcium 10.1 (8.5-10.1) mg/dL Magnesium (1.8-2.4) mg/dL Total Bilirubin (0.2-1.0) mg/dL AST (15-37) U/L ALT (14-59) U/L Alkaline Phosphatase (46-116) U/L Troponin I < 4 (<or=51) ng/L Total Protein (6.4-8.2) g/dL Albumin (3.4-5.0) g/dL Triglycerides Total Cholesterol Lipase (<78) U/L Vitamin B12 Folate Urine Color Yellow (Yellow) Urine Clarity Clear (Clear) Urine pH 5.0 (5-8) Ur Specific Bruning 1.015 (1.005-1.025) Urine Protein 30 H (Neg-Trace) mg/dL Urine Ketones >=160 H (Negative) mg/dL Urine Blood Large H (Negative) Urine Nitrite Negative (Negative) Urine Bilirubin Small H (Negative) Urine Urobilinogen 0.2 (Up to 0.2) mg/dL Ur Leukocyte Esterase Negative (Negative) Urine RBC 20-50 H (0-2) HPF Urine WBC >50 H (0-5) HPF Ur Epithelial Cells Moderate (Negative) HPF Urine Crystals Negative (Negative) HPF Urine Bacteria Many (Negative) HPF Urine Casts Negative (Negative) LPF Urine Mucus Negative (Negative) Ur Culture Indicated? No/Sq. Contamination Urine Glucose 500 H (Negative) mg/dL B-Hydroxybutyrate 06/13/25 Range/Units 17:00 WBC 23.70 H (4.4-10.8) 10^3/uL RBC 5.60 H (3.93-5.22) 10^6/uL Hgb 18.2 H (11.2-15.7) g/dL Hct 54.7 H (36.0-46.0) % MCV 98 H (80-95) fL MCH 32.5 (27.0-33.0) pg MCHC 33.3 (32.0-36.0) % RDW 11.8 (11.7-14.6) % Plt Count 300 (130-400) 10^3/uL MPV 11.6 H (8.0-11.0) fL Immature Gran % See Differential Neutrophils % 94.0 % Lymphocytes % 3.0 % Monocytes % 3.0 % Eosinophils % 0.0 % Basophils % 0.0 % Nucleated RBC % 0.0 (0.0-0.3) % Absolute Neutrophils 22.28 H (1.2-6.7) 10^3/uL Absolute Lymphocytes 0.71 L (1.2-3.4) 10^3/uL Absolute Monocytes 0.71 (0.1-0.8) 10^3/uL Absolute Eosinophils 0.00 (0.0-0.7) 10^3/uL Absolute Basophils 0.00 (0.0-0.2) 10^3/uL RBC Morphology Normal VBG pH (7.31-7.41) VBG pCO2 (41-51) mmHg VBG pO2 mmHg VBG HCO3 (23-28) mmol/L VBG Total CO2 (24-29) mmol/L VBG O2 Saturation % VBG Base Excess (-2-3) mmol/L VBG Lactate (<or=2.0) mmol/L Sodium 129 L (136-145) mmol/L Potassium 5.2 H (3.5-5.1) mmol/L Chloride 87 L (98-107) mmol/L Carbon Dioxide 11.9 L (21.0-32.0) mmol/L Anion Gap 30.1 H (3-11) mmol/L BUN 28 H (7-18) mg/dL Creatinine 1.7 H (0.55-1.02) mg/dL Est GFR (CKD-EPI 2020) 36.08 (mL/min/1.73m2) Glucose 849 H* (74-106) mg/dL Calcium 10.4 H (8.5-10.1) mg/dL Magnesium 2.1 (1.8-2.4) mg/dL Total Bilirubin 0.8 (0.2-1.0) mg/dL AST 23 (15-37) U/L ALT 60 H (14-59) U/L Alkaline Phosphatase 190 H (46-116) U/L Troponin I < 4 (<or=51) ng/L Total Protein 8.8 H (6.4-8.2) g/dL Albumin 3.0 L (3.4-5.0) g/dL Triglycerides Total Cholesterol Lipase 1083 H (<78) U/L Vitamin B12 Folate Urine Color (Yellow) Urine Clarity (Clear) Urine pH (5-8) Ur Specific [place] (1.005-1.025) Urine Protein (Neg-Trace) mg/dL Urine Ketones (Negative) mg/dL Urine Blood (Negative) Urine Nitrite (Negative) Urine Bilirubin (Negative) Urine Urobilinogen (Up to 0.2) mg/dL Ur Leukocyte Esterase (Negative) Urine RBC (0-2) HPF Urine WBC (0-5) HPF Ur Epithelial Cells (Negative) HPF Urine Crystals (Negative) HPF Urine Bacteria (Negative) HPF Urine Casts (Negative) LPF Urine Mucus (Negative) Ur Culture Indicated? Urine Glucose (Negative) mg/dL B-Hydroxybutyrate Pending 06/13/25 20:20 Blood Culture - Pending Blood 06/13/25 19:30 Blood Culture - Pending Blood [id number] Documentation Fingerstick Glucose Start: 06/13/25 18:36 Freq: .Q1H Status: Active Protocol: Activity Type Activity Date Activity User E-sign Co-sign Detail Recorded Client Recorded Date Recorded By Document 06/13/25 21:30 BKG DAEMON(5) [id number] 06/13/25 21:31 BKG DAEMON(6) Fingerstick Glucose Start: 06/13/25 22:09 Freq: .Q1H Status: Active Protocol: Activity Type Activity Date Activity User E-sign Co-sign Detail Recorded Client Recorded Date Recorded By Document 06/13/25 23:26 BKG DAEMON(7) [id number] 06/13/25 23:27 BKG DAEMON(8) Intake and Output - 24 Hour Total 06/13/25 17:13 thru 06/13/25 23:31 Intake Total 2153.534 Output Total 275 Balance 1878.534 Weight 82.1 kg Intake: IV 2153.534 Output: Urine 275 Other: Urine Color Pale Urine Appearance Clear Cloudy Sediment Falls Risk Assessment History of Falls No History 06/13/25 19:00 Contributing Factors No Factors 06/13/25 19:00 Ambulatory Aids Independent 06/13/25 19:00 Tubes/Lines None 06/13/25 19:00 Gait Evaluation No gait disturbance 06/13/25 19:00 Cognition No cognitive impairment 06/13/25 19:00 Fall Total Score 0 06/13/25 19:00 Level of Risk Standard/Low Risk 06/13/25 19:00 Problems (This Medical Record has been edited. Action required.) Pyelonephritis (Acute) ETOH abuse (Chronic) Tobacco abuse (Acute) Tachypnea (Acute) Respiratory acidosis (Acute) Polycythemia (Acute) Pancreatitis (Chronic) Elevated MCV (Acute) Hyperkalemia (Acute) Hyponatremia (Acute) Yeast infection (Acute) UTI (urinary tract infection) (Acute) DKA (diabetic ketoacidosis) (Acute) v v v v v v v v v Sending and/or Receiving Nurses: Please use comment section below to note any information pertinent to the patient hand-off not included above. Information / Comments: Report received from: Abel Davis Software Development Analyst
[2025-06-14 02:14] LABS: BE (Venous) -16 mmol/L (-2-3); HCO3 (Venous) 12 mmol/L (23-28); O2 Sat (Venous) 79 %; TCO2 (Venous) 10 mmol/L (24-29); pCO2 (Venous) 27 mmHg (41-51); pO2 (Venous) 44 mmHg
[2025-06-14 02:33] LABS: Anion Gap 24.5 mmol/L (3-11); BUN 21 mg/dL (7-18); CO2 12.5 mmol/L (21.0-32.0); Calcium 9.8 mg/dL (8.5-10.1); Chloride 98 mmol/L (98-107); Potassium 4.8 mmol/L (3.5-5.1); Sodium 135 mmol/L (136-145)
[2025-06-14 02:35] LABS: Glucose 540 mg/dL (74-106)
[2025-06-14] MEDS: POTASSIUM CHLORIDE/0.9% NACL 1,000 ML 150 MEQ IV (03:46)
[2025-06-14] MEDS: Normal Saline Flush 10 ML SYR IVP ×6 (04:30→20:44)
[2025-06-14 04:51] LABS: BE (Venous) -10 mmol/L (-2-3); HCO3 (Venous) 17 mmol/L (23-28); O2 Sat (Venous) 68 %; TCO2 (Venous) 15 mmol/L (24-29); pCO2 (Venous) 33 mmHg (41-51); pO2 (Venous) 33 mmHg
[2025-06-14] MEDS: THIAMINE 500 MG in Normal Saline 100 ML 200 MG IVPB (06:17)
[2025-06-14 06:19] LABS: Cholesterol 190 mg/dL (<200)
[2025-06-14 06:46] LABS: Anion Gap 19.6 mmol/L (3-11); BUN 19 mg/dL (7-18); CO2 17.4 mmol/L (21.0-32.0); Calcium 9.9 mg/dL (8.5-10.1); Chloride 101 mmol/L (98-107); Folate 4.3 ng/mL (8.6-20.0); Glucose 432 mg/dL (74-106); Potassium 4.1 mmol/L (3.5-5.1); Sodium 138 mmol/L (136-145)
[2025-06-14 06:49] LABS: Vitamin B12 > 2000 pg/mL (193-986)
[2025-06-14 06:56] LABS: Lipase 250 U/L (<78)
--- NOTE | 2025-06-14 08:18 | INITIAL_ITS ---
Date of service: 06/14/25 Time of Service: 08:19 Care Management Initial Assmt Initial Assessment Reason for Hospitalization: DKA Functional Status/Living Situation Patient Presentation: Barby is admitted to the ICU for close monitoring and treatment of DKA, sepsis, UTI, yeast infection and pylonephritis. She resides in [place] with her significant other Finn, is active and independent at baseline and has many supportive family members and friends. She is employed by [employer] and is currently without insurance due to the rising costs of insurance premiums. She expresses interest in exploring potential eligibility for Medicaid or [facility] patient assistance. CM placed a referral to [employer] for support with health care coverage once the patient is more medically stable. Town of Residence: [place] Resides with: Spouse (Partner Finn Acevedo) Significant Other/Family: Local [employer]: Partner Finn Acevedo Son Alphonse Smith Mother Carolyn Vera Friend Fanta Velez Employment Status: Employed Instrumental Activities of Daily Living (ADLs): Independent Medications Medication Management: No Issues/Barriers identified Physical Functioning/Mobility Assistive Device: None Advance Directives Advance Directives: Do you have an Advance Directive: N , 08:17 AD On File at [facility]: N 02/20/23, 08:17 Date Asked 06/13/25 06/13/25, 21:11 AD Date Reviewed COLST On File at [facility] COLST Date Scanned Code Status Resuscitation Status Full Code Portal Pt does not currently have a portal and education provided: Yes Insurance Coverage/Financial Issues Insurance: self Care Team Visit Care Team Role Provider Type Filippo Melendez MD MD [facility] STAFF PHYSICIAN Maritza Cheatham Primary Care Provider NON-[facility] STAFF PHYSICIAN Daphney Holguin RDN, [facility] Other Providers [employer] PROF[employer] Jamshid Díaz RDN Other Providers [employer]AGE[employer] PROFESSOR Gagan Almonte MD Emergency Provider [facility] STAFF PHYSICIAN Kevin Belle MD Admit Provider [facility] STAFF PHYSICIAN Attending Provider Discharge Potential Discharge Needs: PCP F/U Appt Anticipated Barriers to Discharge: None Identified Patient/Family Education Needs: Review discharge instructions, discuss Ask Me Three Transportation: Private vehicle Plan: Barby is being closely monitored and treated in the ICU. Anticipate, patient will discharge home once medically ready with a plan for outpatient follow up. She will transport via private vehicle. No new services are anticipated at this time. CM placed a referral to [employer] for support with accessing healthcare coverage. CM will follow. Social Determinants of Health Screening Will the Patient Participate in the Screening?: Declined to provide Do you worry about having a steady place to live?: no PFSH All Active Problems (Updated 06/14/25 @ 08:54 by Filippo Melendez MD) Severe sepsis (Acute) Pyelonephritis (Acute) ETOH abuse (Chronic) Tobacco abuse (Acute) Tachypnea (Acute) Respiratory acidosis (Acute) Polycythemia (Acute) Pancreatitis (Chronic) Elevated MCV (Acute) Hyperkalemia (Acute) Hyponatremia (Acute) Yeast infection (Acute) UTI (urinary tract infection) (Acute) DKA (diabetic ketoacidosis) (Acute) S/P arthroscopy of right shoulder (Acute 11/09/20) Shoulder arthroscopy with rotator cuff repair, biceps tenodesis, extensive debridement, subacromial decompression, and distal clavicle excision Traumatic tear of right rotator cuff (Acute) Contact dermatitis and eczema due to detergents (Acute) Dysesthesia (Acute) Bursitis of right shoulder (Acute) Impingement syndrome of right shoulder (Acute) Biceps tendinitis of right shoulder (Acute) Arthritis of right acromioclavicular joint (Acute) Medical History (Updated 06/14/25 @ 08:54 by Filippo Melendez MD) Acid reflux Surgical History (System 02/20/23 @ 08:14 by Sybil Russo) History of nasal septoplasty History of tubal ligation S/P right rotator cuff repair left Hx of section x2 Social History (System 02/20/23 @ 08:14 by Sybil Russo) Smoking/Tobacco Use Status: Current every day Tobacco Type: cigarettes Smoking packs per day: 1 Smoking cigarettes per day: 20.0 Smoking risk assessment performed?: Yes Alcohol Intake: never Drug use: Never Substance use type: does not use and marijuana Housing: apartment Current gender identity: female Do you feel safe at home: Yes Do you feel safe in your relationship?: Yes
[2025-06-14] MEDS: Omeprazole 20 MG CAPCR PO (08:22)
[2025-06-14] MEDS: Enoxaparin 40 MG/0.4 ML SYR SC (08:23)
[2025-06-14 08:31] LABS: BE (Venous) -3 mmol/L (-2-3); HCO3 (Venous) 22 mmol/L (23-28); O2 Sat (Venous) 57 %; TCO2 (Venous) 20 mmol/L (24-29); pCO2 (Venous) 40 mmHg (41-51); pO2 (Venous) 27 mmHg
[2025-06-14 08:43] LABS: Anion Gap 13.7 mmol/L (3-11); BUN 17 mg/dL (7-18); CO2 23.3 mmol/L (21.0-32.0); Calcium 9.4 mg/dL (8.5-10.1); Chloride 104 mmol/L (98-107); Glucose 265 mg/dL (74-106); Potassium 3.5 mmol/L (3.5-5.1); Sodium 141 mmol/L (136-145)
--- NOTE | 2025-06-14 08:49 | PGE_ITS ---
Date of Service Date of service: 06/14/25 Time of Service: 08:49 Assessment and Plan Assessment and plan (1) DKA (diabetic ketoacidosis): Status: Acute Assessment and plan: -patient met criteria for DKA with initial labs showing anion gap of 31, glucose of 849, VBG pH 7.15 and positive ketones in the urine -UTI/Pyelo likely causation of DKA (see below) -was starting insulin drip and DKA protocol in the ED and admitted to the ICU -AG still open at 13.7 as of 8:35am -will continue to check glucose levels and BMP as per DKA protocol -once AG is closed and patient wants to eat, will start regular diet, restart long acting insulin 1hr prior to discontinuing insulin drip (2) Severe sepsis: Status: Acute Assessment and plan: -patient met criteria for severe sepsis on admission with WBC 23.7, HR of 134, RR 28, source of infection being pyelonephritis, and LA of 2.3 -started on CTX in ED, will continue -repeat lactic not ordered on admission, now ordered, will f/u results -f/u blood cultures (3) Pyelonephritis: Status: Acute Assessment and plan: -as soon on abdo/pelvis CT and soure of infection as noted above (4) UTI (urinary tract infection): Status: Acute Assessment and plan: -patient reportedly diagnosed recently with UTI but did not take prescribed medications, likely results in pyelo as noted above (5) Yeast infection: Status: Acute Assessment and plan: -not recently diagnosed with yeast infection -fluconazole last prescribed in November -fluconazole discontinued (6) Hyponatremia: Status: Acute Assessment and plan: -pseudo, secondary to DKA as noted above (7) Hyperkalemia: Status: Acute Assessment and plan: -K 5.2 on admission, likely secondary to DKA as noted above -now resolved with improvedment of DKA (8) Pancreatitis: Status: Chronic Assessment and plan: -lipase ~1000, incidental finding, not seen on CT -patient NPO and on IV fluids as noted above (9) Tobacco abuse: Status: Acute Assessment and plan: -1 pack per week -declined nicotine replacement on admission (10) ETOH abuse: Status: Chronic Assessment and plan: -patient stated only a few beers a day, aparently friend in ED hinted it was more -last reported drink was 4 days ago -CIWA has been 0, will continue to check Subjective Subjective Interval history since last seen: Patient states that she is feeling better as compared to admission and has no complaints or concerns at this time. Exam Narrative Exam Narrative: fatigued but well appearing female laying in bed in no acute distress, AOx4, ehart RRR, lungs CTAB, abdomen soft, non-tender, non-distended Objective Last Vital Signs Temp 97.5 F L 06/13/25 23:10 Pulse 103 H 06/14/25 06:50 Resp 29 H 06/14/25 06:50 BP 129/92 H 06/14/25 06:50 Pulse Ox 100 06/14/25 03:01 Laboratory Results - last 24 hr 06/13/25 06/13/25 06/13/25 17:00 18:50 19:44 WBC 23.70 H RBC 5.60 H Hgb 18.2 H Hct 54.7 H MCV 98 H MCH 32.5 MCHC 33.3 RDW 11.8 Plt Count 300 MPV 11.6 H Immature Gran % See Differential Neutrophils % 94.0 Lymphocytes % 3.0 Monocytes % 3.0 Eosinophils % 0.0 Basophils % 0.0 Nucleated RBC % 0.0 Absolute Neutrophils 22.28 H Absolute Lymphocytes 0.71 L Absolute Monocytes 0.71 Absolute Eosinophils 0.00 Absolute Basophils 0.00 RBC Morphology Normal VBG pH VBG pCO2 VBG pO2 VBG HCO3 VBG Total CO2 VBG O2 Saturation VBG Base Excess VBG Lactate Sodium 129 L 130 L Potassium 5.2 H 5.3 H Chloride 87 L 91 L Carbon Dioxide 11.9 L 11.4 L Anion Gap 30.1 H 27.6 H BUN 28 H 26 H Creatinine 1.7 H 1.3 H Est GFR (CKD-EPI 2020) 36.08 49.79 Glucose 849 H* 712 H* Calcium 10.4 H 10.1 Magnesium 2.1 Total Bilirubin 0.8 AST 23 ALT 60 H Alkaline Phosphatase 190 H Troponin I < 4 < 4 Total Protein 8.8 H Albumin 3.0 L Triglycerides Total Cholesterol Lipase 1083 H Vitamin B12 Folate Urine Color Yellow Urine Clarity Clear Urine pH 5.0 Ur Specific [place] 1.015 Urine Protein 30 H Urine Ketones >=160 H Urine Blood Large H Urine Nitrite Negative Urine Bilirubin Small H Urine Urobilinogen 0.2 Ur Leukocyte Esterase Negative Urine RBC 20-50 H Urine WBC >50 H Ur Epithelial Cells Moderate Urine Crystals Negative Urine Bacteria Many Urine Casts Negative Urine Mucus Negative Ur Culture Indicated? No/Sq. Contamination Urine Glucose 500 H 06/13/25 06/13/25 06/14/25 20:26 23:12 00:15 WBC RBC Hgb Hct MCV MCH MCHC RDW Plt Count MPV Immature Gran % Neutrophils % Lymphocytes % Monocytes % Eosinophils % Basophils % Nucleated RBC % Absolute Neutrophils Absolute Lymphocytes Absolute Monocytes Absolute Eosinophils Absolute Basophils RBC Morphology VBG pH 7.15 L* VBG pCO2 29 L VBG pO2 34 VBG HCO3 10 L VBG Total CO2 9 L VBG O2 Saturation 59 VBG Base Excess -19 L VBG Lactate 2.2 H* Sodium 135 L Cancelled Potassium 5.2 H Cancelled Chloride 96 L Cancelled Carbon Dioxide 17.2 L Cancelled Anion Gap 21.8 H Cancelled BUN 24 H Cancelled Creatinine 1.3 H Cancelled Est GFR (CKD-EPI 2020) 49.79 Cancelled Glucose 527 H* Cancelled Calcium 10.2 H Cancelled Magnesium Total Bilirubin AST ALT Alkaline Phosphatase Troponin I Total Protein Albumin Triglycerides Total Cholesterol Lipase Vitamin B12 Folate Urine Color Urine Clarity Urine pH Ur Specific [place] Urine Protein Urine Ketones Urine Blood Urine Nitrite Urine Bilirubin Urine Urobilinogen Ur Leukocyte Esterase Urine RBC Urine WBC Ur Epithelial Cells Urine Crystals Urine Bacteria Urine Casts Urine Mucus Ur Culture Indicated? Urine Glucose 06/14/25 06/14/25 06/14/25 02:05 04:42 05:30 WBC RBC Hgb Hct MCV MCH MCHC RDW Plt Count MPV Immature Gran % Neutrophils % Lymphocytes % Monocytes % Eosinophils % Basophils % Nucleated RBC % Absolute Neutrophils Absolute Lymphocytes Absolute Monocytes Absolute Eosinophils Absolute Basophils RBC Morphology VBG pH 7.23 L 7.32 VBG pCO2 27 L 33 L VBG pO2 44 33 VBG HCO3 12 L 17 L VBG Total CO2 10 L 15 L VBG O2 Saturation 79 68 VBG Base Excess -16 L -10 L VBG Lactate Sodium 135 L Cancelled 138 Potassium 4.8 Cancelled 4.1 Chloride 98 Cancelled 101 Carbon Dioxide 12.5 L Cancelled 17.4 L Anion Gap 24.5 H Cancelled 19.6 H BUN 21 H Cancelled 19 H Creatinine 1.1 H Cancelled 1.2 H Est GFR (CKD-EPI 2020) 60.84 Cancelled 54.80 Glucose 540 H* Cancelled 432 H Calcium 9.8 Cancelled 9.9 Magnesium Total Bilirubin AST ALT Alkaline Phosphatase Troponin I Total Protein Albumin Triglycerides Cancelled 314 H Total Cholesterol Cancelled 190 Lipase Cancelled 250 H Vitamin B12 Cancelled > 2000 H Folate Cancelled 4.3 L Urine Color Urine Clarity Urine pH Ur Specific [place] Urine Protein Urine Ketones Urine Blood Urine Nitrite Urine Bilirubin Urine Urobilinogen Ur Leukocyte Esterase Urine RBC Urine WBC Ur Epithelial Cells Urine Crystals Urine Bacteria Urine Casts Urine Mucus Ur Culture Indicated? Urine Glucose 06/14/25 06/14/25 06:15 08:25 WBC RBC Hgb Hct MCV MCH MCHC RDW Plt Count MPV Immature Gran % Neutrophils % Lymphocytes % Monocytes % Eosinophils % Basophils % Nucleated RBC % Absolute Neutrophils Absolute Lymphocytes Absolute Monocytes Absolute Eosinophils Absolute Basophils RBC Morphology VBG pH 7.35 VBG pCO2 40 L VBG pO2 27 VBG HCO3 22 L VBG Total CO2 20 L VBG O2 Saturation 57 VBG Base Excess -3 L VBG Lactate Sodium Cancelled Potassium Cancelled Chloride Cancelled Carbon Dioxide Cancelled Anion Gap Cancelled BUN Cancelled Creatinine Cancelled Est GFR (CKD-EPI 2020) Cancelled Glucose Cancelled Calcium Cancelled Magnesium Total Bilirubin AST ALT Alkaline Phosphatase Troponin I Total Protein Albumin Triglycerides Total Cholesterol Lipase Vitamin B12 Folate Urine Color Urine Clarity Urine pH Ur Specific [place] Urine Protein Urine Ketones Urine Blood Urine Nitrite Urine Bilirubin Urine Urobilinogen Ur Leukocyte Esterase Urine RBC Urine WBC Ur Epithelial Cells Urine Crystals Urine Bacteria Urine Casts Urine Mucus Ur Culture Indicated? Urine Glucose PAWSS Have you Been Recently Intoxicated or Drunk Within the Last 30 days?: Yes Have you Ever Experienced Previous Episodes of Alcohol Withdrawal?: No Have you ever Experienced Withdrawal Seizures?: No Have you ever Experienced Delirium Tremens(DT)s?: No Have you ever undergone Alcohol Rehabilitation Treatment (i.e, inpt ot outpatient treatment programs)?: No Have you ever Experienced Blackouts?: No Have you ever Combined Alcohol with other Downers within the last 90 days?: No Have you ever Combined Alcohol with any other Substance of Abuse during the last 90 days?: No Positive Blood Alcohol level on Presentation? [PCS.BAL]: Unable to Obtain Evidence of Increased Autonomic Activity (i.e. HR>120, tremor, sweating, agitation, nausea)?: No Result: 1 Time Spent with Patient Time Spent with Patient: >50 minutes Time was spent: preparing to see the patient(eg.review tests), obtaining and/or reviewing separately otained hiistory, ordering medications,tests, procedures, referring, communicating with other health memory care director, indepentently interpreting results, counseling the patient and care coordination
[2025-06-14 10:38] LABS: Anion Gap 14.1 mmol/L (3-11); BUN 16 mg/dL (7-18); CO2 21.9 mmol/L (21.0-32.0); Calcium 9.2 mg/dL (8.5-10.1); Chloride 105 mmol/L (98-107); Glucose 188 mg/dL (74-106); Potassium 3.7 mmol/L (3.5-5.1); Sodium 141 mmol/L (136-145)
--- NOTE | 2025-06-14 11:05 | CHAPLAIN ---
I had a brief visit with Barby. She was drowsy and responded quietly to questions. A friend was in the room with her. I explained my role and offered support.
[2025-06-14] MEDS: POTASSIUM CHLORIDE/D5-0.45NACL 1,000 ML 150 MEQ IV (12:10)
[2025-06-14 12:31] LABS: BE (Venous) -7 mmol/L (-2-3); HCO3 (Venous) 19 mmol/L (23-28); O2 Sat (Venous) 83 %; TCO2 (Venous) 17 mmol/L (24-29); pCO2 (Venous) 34 mmHg (41-51); pO2 (Venous) 43 mmHg
[2025-06-14 12:45] LABS: Anion Gap 14.9 mmol/L (3-11); BUN 14 mg/dL (7-18); CO2 21.1 mmol/L (21.0-32.0); Calcium 9.0 mg/dL (8.5-10.1); Chloride 103 mmol/L (98-107); Glucose 203 mg/dL (74-106); Potassium 3.6 mmol/L (3.5-5.1); Sodium 139 mmol/L (136-145)
[2025-06-14 14:46] LABS: Anion Gap 13.0 mmol/L (3-11); BUN 13 mg/dL (7-18); CO2 20.0 mmol/L (21.0-32.0); Calcium 8.7 mg/dL (8.5-10.1); Chloride 103 mmol/L (98-107); Glucose 254 mg/dL (74-106); Potassium 3.7 mmol/L (3.5-5.1); Sodium 136 mmol/L (136-145)
[2025-06-14 16:53] LABS: BE (Venous) -3 mmol/L (-2-3); HCO3 (Venous) 22 mmol/L (23-28); O2 Sat (Venous) 84 %; TCO2 (Venous) 19 mmol/L (24-29); pCO2 (Venous) 36 mmHg (41-51); pO2 (Venous) 43 mmHg
--- NOTE | 2025-06-14 16:56 | PHA.REVIEW2 ---
Pharmacy Admission Review Admission Clinical Review Admission Pharmacy Review: Severe sepsis (Acute) Pyelonephritis (Acute) Tobacco abuse (Acute) Tachypnea (Acute) Respiratory acidosis (Acute) Polycythemia (Acute) Elevated MCV (Acute) Hyperkalemia (Acute) Hyponatremia (Acute) Yeast infection (Acute) UTI (urinary tract infection) (Acute) DKA (diabetic ketoacidosis) (Acute) No Known Allergies Allergy (Verified 06/13/25 17:32) Resuscitation Status Full Code Height 5 ft 3 in Weight 85.5 kg Pharmacy Admission Review Renal Dosing Renal Dosing: BUN 13 mg/dL (7-18) 06/14/25 14:27 Creatinine 0.8 mg/dL (0.55-1.02) 06/14/25 14:27 Medications needing adjustments: Reviewed List of meds needing interventions: no intervention Anticoagulation Anticoagulation: Hgb 18.2 g/dL (11.2-15.7) H 06/13/25 17:00 Hct 54.7 % (36.0-46.0) H 06/13/25 17:00 Plt Count 300 10^3/uL (130-400) 06/13/25 17:00 Creatinine 0.8 mg/dL (0.55-1.02) 06/14/25 14:27 DVT Prophylaxis: Reviewed Medications: Enoxaparin Opiate Usage Evaluate Pain Scale/Pains Meds: Reviewed Relevant Labs Relevant Labs: Sodium 136 mmol/L (136-145) 06/14/25 14:27 Potassium 3.7 mmol/L (3.5-5.1) 06/14/25 14:27 Chloride 103 mmol/L (98-107) 06/14/25 14:27 Magnesium 2.1 mg/dL (1.8-2.4) 06/13/25 17:00 Electrolytes, C-Reactive P, ESR: Reviewed DM Control DM Control: on insulin drip titrated per protocol. Anion gap and blood glucose are trending down. DM Control: Reviewed Cardiac Review Cardiac Review: Troponin I < 4 ng/L (<or=51) 06/13/25 19:44 BP, HR, EF%: Reviewed QTc Review QTc: N/A IV to PO Switch IV Medications: Reviewed Home Meds Home Med List reviewed: Reviewed Pharmacy Antibiotic Review Pharmacy Antibiotic Activity: Reviewed, no change
[2025-06-14 17:10] LABS: Anion Gap 11.3 mmol/L (3-11); BUN 11 mg/dL (7-18); CO2 22.7 mmol/L (21.0-32.0); Calcium 8.8 mg/dL (8.5-10.1); Chloride 103 mmol/L (98-107); Glucose 233 mg/dL (74-106); Potassium 3.4 mmol/L (3.5-5.1); Sodium 137 mmol/L (136-145)
[2025-06-14] MEDS: cefTRIAXone 1 GM/50 ML BAG IV (18:07)
[2025-06-14 18:35] LABS: Anion Gap 11.4 mmol/L (3-11); BUN 11 mg/dL (7-18); CO2 22.6 mmol/L (21.0-32.0); Calcium 8.6 mg/dL (8.5-10.1); Chloride 104 mmol/L (98-107); Glucose 168 mg/dL (74-106); Potassium 3.3 mmol/L (3.5-5.1); Sodium 138 mmol/L (136-145)
[2025-06-14] MEDS: diphenhydrAMINE 25 MG CAP PO (20:18)
[2025-06-14 20:30] LABS: BE (Venous) -1 mmol/L (-2-3); HCO3 (Venous) 23 mmol/L (23-28); O2 Sat (Venous) 77 %; TCO2 (Venous) 21 mmol/L (24-29); pCO2 (Venous) 36 mmHg (41-51); pO2 (Venous) 37 mmHg
[2025-06-14 20:42] LABS: Anion Gap 10.3 mmol/L (3-11); BUN 10 mg/dL (7-18); CO2 23.7 mmol/L (21.0-32.0); Calcium 9.0 mg/dL (8.5-10.1); Chloride 104 mmol/L (98-107); Glucose 103 mg/dL (74-106); Potassium 3.3 mmol/L (3.5-5.1); Sodium 138 mmol/L (136-145)
[2025-06-14] MEDS: Insulin Glargine 300 UNITS/3 ML PEN 10 UNITS SC (21:32)
[2025-06-15] VITALS (10 sets, daily range): BP systolic 101–123; BP diastolic 35–91; PULSE 72–106; RESP 16–23; TEMP 36.5–36.9; O2SAT 95–97
[2025-06-15] MEDS: Normal Saline Flush 10 ML SYR IVP ×3 (05:10→19:50)
[2025-06-15 06:56] LABS: Anion Gap 14.4 mmol/L (3-11); BUN 10 mg/dL (7-18); CO2 20.6 mmol/L (21.0-32.0); Calcium 8.5 mg/dL (8.5-10.1); Chloride 97 mmol/L (98-107); Glucose 377 mg/dL (74-106); Potassium 3.5 mmol/L (3.5-5.1); Sodium 132 mmol/L (136-145)
[2025-06-15] MEDS: Enoxaparin 40 MG/0.4 ML SYR SC (08:17)
[2025-06-15] MEDS: Omeprazole 20 MG CAPCR PO (08:17)
--- NOTE | 2025-06-15 08:35 | PDOC.CMDIS ---
Date of service: 06/15/25 Time of Service: 08:35 LACE Index Scoring Tool Questions: Comorbidities: Diabetes w/o Complication (Admitted for DKA 06/15/25) E.D. Visits: 1 Care Management Discharge Plan Reason for Hospitalization: DKA Discharge Plan: Barby is discharged home via private vehicle with family. She will follow up with community providers and continue per her discharge plan of care. Patient will follow up with KATHERINE for support with healthcare coverage. RX savings card was issued to patient to help offset some of the expense of her insulin in the absence of insurance coverage. Patient/Family Education Needs: Review discharge instructions and plan to follow up with community providers. Discuss ask me three.
[2025-06-15] MEDS: Insulin Glargine 300 UNITS/3 ML PEN 40 UNITS SC (09:00)
[2025-06-15] MEDS: Insulin Aspart 300 UNITS/3 ML PEN SC ×4 (09:01→21:17)
--- NOTE | 2025-06-15 12:15 | PDOC.CMPRO ---
Date of service: 06/15/25 Time of Service: 12:15 Care Management Progress Note Progress Note Text Progress Note Text: Barby was awake and lying in bed when CM met with her. Her significant other is sitting at the bedside. Overall, pt is feeling much better and is planning to discharge home later today if her blood sugar stays within range. CM provided patient with discount coupons printed from [employer] in anticipation of her discharge home with new prescriptions for Lantus and Aspart. Per nursing, patient will also have left over insulin that she will be able to take with her when she discharges. She does not have a glucometer and will leave with a continuous glucose monitor at discharge, per the ventilating engineer. Barby is planning to follow up with KATHERINE for support with healthcare coverage and patient assistance. Discharge Potential Discharge Needs: PCP F/U Appt Anticipated Barriers to Discharge: None Identified Patient/Family Education Needs: Review discharge instructions, discuss Ask Me Three Transportation: Private vehicle Plan: Barby is being closely monitored and treated in the ICU. Anticipate, patient will discharge home once medically ready with a plan for outpatient follow up. She will transport via private vehicle. No new services are anticipated at this time. CM placed a referral to KATHERINE for support with accessing healthcare coverage. CM will follow. Social Determinants of Health Screening Will the Patient Participate in the Screening?: Declined to provide Do you worry about having a steady place to live?: no
--- NOTE | 2025-06-15 13:12 | W.PM.PROGNOT ---
Date of Service Date of service: 06/15/25 Time of Service: 13:12 Assessment and Plan Assessment and plan (1) DKA (diabetic ketoacidosis): Status: Acute Assessment and plan: -patient met criteria for DKA with initial labs showing anion gap of 31, glucose of 849, VBG pH 7.15 and positive ketones in the urine -UTI/Pyelo likely causation of DKA (see below) -was starting insulin drip and DKA protocol in the ED and admitted to the ICU -AG still open at 13.7 as of 8:35am -will continue to check glucose levels and BMP as per DKA protocol -AG closed overnight 06/14, given 10U lantus HS -based on calculations from last 4 hours of insulin drip patient would require 120 units of insulin daily. Conservatively she was started on 40U lantus AM 06/15 -blood sugars remained in the high 200's and lantus increased to 50U starting AM 06/16 -patient also on moderate sliding scale and have bene receiving excellent education from her Nurse -also educated by Nutrition and given continuous monitor -will continue educaiton and monitoring glucose levels and make adjustment to insulin regimen as needed (2) Severe sepsis: Status: Acute Assessment and plan: -patient met criteria for severe sepsis on admission with WBC 23.7, HR of 134, RR 28, source of infection being pyelonephritis, and LA of 2.3 -started on CTX in ED, will continue -repeat lactic not ordered on admission, now ordered, will f/u results -blood cultures remain negative (3) Pyelonephritis: Status: Acute Assessment and plan: -as seen on abdo/pelvis CT and soure of infection as noted above (4) UTI (urinary tract infection): Status: Acute Assessment and plan: -patient reportedly diagnosed recently with UTI but did not take prescribed medications, likely results in pyelo as noted above (5) Yeast infection: Status: Acute Assessment and plan: -not recently diagnosed with yeast infection -fluconazole last prescribed in November -fluconazole discontinued (6) Hyponatremia: Status: Acute Assessment and plan: -pseudo, secondary to DKA as noted above (7) Hyperkalemia: Status: Acute Assessment and plan: -K 5.2 on admission, likely secondary to DKA as noted above -now resolved with improvedment of DKA (8) Pancreatitis: Status: Chronic Assessment and plan: -lipase ~1000, incidental finding, not seen on CT - now tolerating full diet (9) Tobacco abuse: Status: Acute Assessment and plan: -1 pack per week -declined nicotine replacement on admission (10) ETOH abuse: Status: Chronic Assessment and plan: -patient stated only a few beers a day, aparently friend in ED hinted it was more -last reported drink was 4 days ago -CIWA has been 0, will continue to check Subjective Subjective Interval history since last seen: Patient states that she is feeling better and understands the important of remaining hospitalized for an additional night in order to receive additional diabetes education and training on glucose checks and insulin administration. Exam Narrative Exam Narrative: well appearing female laying in bed in no acute distress, AOx4, ehart RRR, lungs CTAB, abdomen soft, non-tender, non-distended Objective Last Vital Signs Temp 98.2 F 06/15/25 08:00 Pulse 93 H 06/15/25 09:46 Resp 22 06/15/25 09:46 BP 118/86 06/15/25 09:46 Pulse Ox 96 06/14/25 23:33 Laboratory Results - last 24 hr 06/13/25 06/14/25 06/14/25 17:00 14:27 16:15 VBG pH 7.39 VBG pCO2 36 L VBG pO2 43 VBG HCO3 22 L VBG Total CO2 19 L VBG O2 Saturation 84 VBG Base Excess -3 L Sodium 136 137 Potassium 3.7 3.4 L Chloride 103 103 Carbon Dioxide 20.0 L 22.7 Anion Gap 13.0 H 11.3 H BUN 13 11 Creatinine 0.8 1.0 Est GFR (CKD-EPI 2020) 89.15 68.21 Glucose 254 H 233 H Calcium 8.7 8.8 B-Hydroxybutyrate >9.0 H 06/14/25 06/14/25 06/14/25 18:10 20:25 22:15 VBG pH 7.42 H VBG pCO2 36 L VBG pO2 37 VBG HCO3 23 VBG Total CO2 21 L VBG O2 Saturation 77 VBG Base Excess -1 Sodium 138 138 Cancelled Potassium 3.3 L 3.3 L Cancelled Chloride 104 104 Cancelled Carbon Dioxide 22.6 23.7 Cancelled Anion Gap 11.4 H 10.3 Cancelled BUN 11 10 Cancelled Creatinine 0.9 0.9 Cancelled Est GFR (CKD-EPI 2020) 77.40 77.40 Cancelled Glucose 168 H 103 Cancelled Calcium 8.6 9.0 Cancelled B-Hydroxybutyrate 06/15/25 06/15/25 05:15 06:30 VBG pH VBG pCO2 VBG pO2 VBG HCO3 VBG Total CO2 VBG O2 Saturation VBG Base Excess Sodium Cancelled 132 L Potassium Cancelled 3.5 Chloride Cancelled 97 L Carbon Dioxide Cancelled 20.6 L Anion Gap Cancelled 14.4 H BUN Cancelled 10 Creatinine Cancelled 0.7 Est GFR (CKD-EPI 2020) Cancelled 104.65 Glucose Cancelled 377 H Calcium Cancelled 8.5 B-Hydroxybutyrate PAWSS Have you Been Recently Intoxicated or Drunk Within the Last 30 days?: Yes Have you Ever Experienced Previous Episodes of Alcohol Withdrawal?: No Have you ever Experienced Withdrawal Seizures?: No Have you ever Experienced Delirium Tremens(DT)s?: No Have you ever undergone Alcohol Rehabilitation Treatment (i.e, inpt ot outpatient treatment programs)?: No Have you ever Experienced Blackouts?: No Have you ever Combined Alcohol with other Downers within the last 90 days?: No Have you ever Combined Alcohol with any other Substance of Abuse during the last 90 days?: No Positive Blood Alcohol level on Presentation? [PCS.BAL]: Unable to Obtain Evidence of Increased Autonomic Activity (i.e. HR>120, tremor, sweating, agitation, nausea)?: No Result: 1 Time Spent with Patient Time Spent with Patient: >50 minutes Time was spent: preparing to see the patient(eg.review tests), obtaining and/or reviewing separately otained hiistory, ordering medications,tests, procedures, referring, communicating with other health neonatal critical care nurse, indepentently interpreting results, counseling the patient and care coordination
[2025-06-15] MEDS: cefTRIAXone 1 GM/50 ML BAG IV (18:52)
[2025-06-15] MEDS: diphenhydrAMINE 25 MG CAP PO (21:17)
[2025-06-15] MEDS: Acetaminophen 325 MG TAB 650 MG PO (23:08)
[2025-06-16 06:56] VITALS: BP 110/78; PULSE 92; O2SAT 95
[2025-06-16 06:59] VITALS: TEMP 36.7
[2025-06-16] MEDS: Omeprazole 20 MG CAPCR PO (07:53)
[2025-06-16] MEDS: Insulin Glargine 300 UNITS/3 ML PEN 50 UNITS SC (07:55)
[2025-06-16] MEDS: Insulin Aspart 300 UNITS/3 ML PEN SC (07:55)
--- NOTE | 2025-06-16 10:11 | DSE_ITS ---
Date of service: 06/16/25 Time of Service: 10:00 DS: Diagnosis Discharge Diagnosis (1) DKA (diabetic ketoacidosis): Status: Acute Asessment and Plan: -patient met criteria for DKA with initial labs showing anion gap of 31, glucose of 849, VBG pH 7.15 and positive ketones in the urine -UTI/Pyelo likely causation of DKA (see below) -was starting insulin drip and DKA protocol in the ED and admitted to the ICU -AG still open at 13.7 as of 8:35am -will continue to check glucose levels and BMP as per DKA protocol -AG closed overnight 06/14, given 10U lantus HS -based on calculations from last 4 hours of insulin drip patient would require 120 units of insulin daily. Conservatively she was started on 40U lantus AM 06/15 -blood sugars remained in the high 200's and lantus increased to 50U starting AM 06/16 -patient also on moderate sliding scale and have bene receiving excellent education from her Nurse -also educated by Nutrition and given continuous monitor -will continue educaiton and monitoring glucose levels and make adjustment to insulin regimen as needed At time of discharge, patient is on morning long-acting lantus 50u. Will send her home on this amount of insulin as a first step, with instructions to followup with PCP for additional treatment. CGM in place. (2) Severe sepsis: Status: Resolved Asessment and Plan: -patient met criteria for severe sepsis on admission with WBC 23.7, HR of 134, RR 28, source of infection being pyelonephritis, and LA of 2.3 -started on CTX in ED, will continue -repeat lactic not ordered on admission, now ordered, will f/u results -blood cultures remain negative (3) Pyelonephritis: Status: Resolved Asessment and Plan: -as seen on abdo/pelvis CT and soure of infection as noted above (4) UTI (urinary tract infection): Status: Resolved Asessment and Plan: -patient reportedly diagnosed recently with UTI but did not take prescribed medications, likely results in pyelo as noted above (5) Yeast infection: Status: Resolved Asessment and Plan: -not recently diagnosed with yeast infection -fluconazole last prescribed in November -fluconazole discontinued on admission (6) Hyponatremia: Status: Resolved Asessment and Plan: -pseudo, secondary to DKA as noted above (7) Hyperkalemia: Status: Resolved Asessment and Plan: -K 5.2 on admission, likely secondary to DKA as noted above -now resolved (8) Pancreatitis: Status: Chronic Asessment and Plan: -lipase ~1000, incidental finding, not seen on CT - now tolerating full diet (9) Tobacco abuse: Status: Acute Asessment and Plan: -1 pack per week -declined nicotine replacement on admission (10) ETOH abuse: Status: Chronic Asessment and Plan: -patient stated only a few beers a day, aparently friend in ED hinted it was more -last reported drink was 4 days ago - no withdrawal intervention required for this hospitalization Discharge Plan Disposition Patient Disposition: Home Condition: Improving Discharge Details Reason For Visit: DKA Admit Date/Time: 06/13/25 22:04 Admit Provider: Kevin Belle Attending Provider: Kevin Belle Primary Care Provider: Maritza Cheatham [facility] Course Hospital Course: Barby Vera is a 50 year old woman presenting June 13, sent in from [facility] for hyperglycemia, with chief complaint of UTI symptoms, in the setting of EtOH dependence, chronic pancreatitis, recent DM diagnosis. In the [facility] ED she was found to be in DKA with blood glucose 849. She was admitted to the ICU and improved, with acidosis resolving in about 24 hours. She has been started on long-acting insulin and has been given diabetes education, with arrangements made for close PCP followup. Home Meds and New Rx's Prescriptions: New insulin glargine [Lantus Solostar U-100 Insulin] 100 unit/mL (3 mL) insulin pen 50 unit subcut QAM Qty: 15 0RF insulin glargine [Lantus Solostar U-100 Insulin] 100 unit/mL (3 mL) insulin pen 50 unit subcut QAM Qty: 15 0RF fluconazole 150 mg tablet 150 mg PO DAILY 7 Days Qty: 7 0RF Continued omeprazole magnesium [Prilosec OTC] 20 mg Tablet,Delayed Release (Dr/Ec) 20 mg PO DAILY Discontinued diphenhydramine HCl [Benadryl Allergy] 25 mg tablet 25 mg PO QHS fluconazole 150 mg tablet 150 mg PO DAILY Qty: 3 0RF melatonin 3 mg Capsule 3 mg PO HS PRN ondansetron 4 mg tablet,disintegrating 4 mg PO Q8H PRN (Reason: nausea and vomiting) Qty: 30 0RF oxycodone 5 mg tablet 5 mg PO TID PRNQty: 12 0RF Discharge Instructions Referrals: Maritza Cheatham [Primary Care Provider, Medicine] Referral Note: follow up with Primary Care Provider 7-10 from discharge on 06/16/2025 Activity:: Activity as Tolerated Equipment/Supplies:: No Equipment Needed Diet:: As Tolerated Discharge Orders Discharge Orders: Discharge Order (Routine); Ordered 06/16/25 Ordered By: Ignacio Zavala Discharge Data Discharge Date/Time-TO BE ENTERED AT DEPARTURE: 06/16/25 14:55 DS: Summary Time Spent with Patient providing and/or coordinating discharge services: Less than 30 minutes Status at Discharge Functional status at discharge: independent ambulation Overall status at discharge: patient is back to baseline Mental Status: mental status grossly normal Speech and Movement: speech and movement normal Mood: congruent mood Affect: normal affect Exam Narrative Exam Narrative: General: This is a pleasant woman in no distress HEENT: Normocephalic, atraumatic CV: RRR Resp: CTAB Abd: soft, NTND MSK: voluntary motion x4 Neuro: awake, alert, no focal deficits Psych Mental Status: mental status grossly normal Speech and Movement: speech and movement normal Mood: congruent mood Affect: normal affect DS: Data Vitals/I&O Vitals and I&O: Vital Signs Temperature 36.7 C 06/16/25 06:59 Temperature Source Temporal Artery Scan 06/16/25 06:59 Pulse 92 H 06/16/25 06:56 Pulse 93 H 06/15/25 09:46 Respiratory Rate 16 06/15/25 23:15 Respiratory Effort Normal 06/13/25 23:10 Respiratory Depth Normal 06/13/25 23:10 Respiratory Pattern Tachypnea 06/13/25 23:10 Blood Pressure 110/78 06/16/25 06:56 Blood Pressure Mean 89 06/16/25 06:56 Pulse Oximetry 95 06/16/25 06:56 Oxygen Delivery Method Room Air 06/15/25 23:15 Oxygen Flow Rate 0 06/15/25 23:15 Pain Level 7 06/15/25 23:15 Intake & Output 06/15/25 06/15/25 06/16/25 11:59 23:59 11:59 Intake Total 240 / 930 690 / 930 500 / 500 Output Total 925 / 2175 1250 / 2175 900 / 900 Balance -685 / -1245 -560 / -1245 -400 / -400 Weight 85.1 kg 86 kg Intake: IV 50 / 50 Oral 240 / 880 640 / 880 500 / 500 Output: Urine 925 / 2175 1250 / 2175 900 / 900 Other: Urine Color Yellow Yellow Yellow Urine Appearance Clear Clear Clear Urine Odor Normal Stool Size Moderate Stool Characteristics Soft Formed Brown Data Completed and Pending Pending Labs at Discharge: 06/13/25 06/13/25 06/13/25 17:00 18:50 19:44 WBC 23.70 H RBC 5.60 H Hgb 18.2 H Hct 54.7 H MCV 98 H MCH 32.5 MCHC 33.3 RDW 11.8 Plt Count 300 MPV 11.6 H Immature Gran % See Differential Neutrophils % 94.0 Lymphocytes % 3.0 Monocytes % 3.0 Eosinophils % 0.0 Basophils % 0.0 Nucleated RBC % 0.0 Absolute Neutrophils 22.28 H Absolute Lymphocytes 0.71 L Absolute Monocytes 0.71 Absolute Eosinophils 0.00 Absolute Basophils 0.00 RBC Morphology Normal VBG pH VBG pCO2 VBG pO2 VBG HCO3 VBG Total CO2 VBG O2 Saturation VBG Base Excess VBG Lactate Sodium 129 L 130 L Potassium 5.2 H 5.3 H Chloride 87 L 91 L Carbon Dioxide 11.9 L 11.4 L Anion Gap 30.1 H 27.6 H BUN 28 H 26 H Creatinine 1.7 H 1.3 H Est GFR (CKD-EPI 2020) 36.08 49.79 Glucose 849 H* 712 H* Calcium 10.4 H 10.1 Magnesium 2.1 Total Bilirubin 0.8 AST 23 ALT 60 H Alkaline Phosphatase 190 H Troponin I < 4 < 4 Total Protein 8.8 H Albumin 3.0 L Triglycerides Total Cholesterol Lipase 1083 H Vitamin B12 Folate Urine Color Yellow Urine Clarity Clear Urine pH 5.0 Ur Specific [place] 1.015 Urine Protein 30 H Urine Ketones >=160 H Urine Blood Large H Urine Nitrite Negative Urine Bilirubin Small H Urine Urobilinogen 0.2 Ur Leukocyte Esterase Negative Urine RBC 20-50 H Urine WBC >50 H Ur Epithelial Cells Moderate Urine Crystals Negative Urine Bacteria Many Urine Casts Negative Urine Mucus Negative Ur Culture Indicated? No/Sq. Contamination Urine Glucose 500 H B-Hydroxybutyrate >9.0 H 06/13/25 06/13/25 06/13/25 20:26 22:15 23:12 WBC RBC Hgb Hct MCV MCH MCHC RDW Plt Count MPV Immature Gran % Neutrophils % Lymphocytes % Monocytes % Eosinophils % Basophils % Nucleated RBC % Absolute Neutrophils Absolute Lymphocytes Absolute Monocytes Absolute Eosinophils Absolute Basophils RBC Morphology VBG pH 7.15 L* VBG pCO2 29 L VBG pO2 34 VBG HCO3 10 L VBG Total CO2 9 L VBG O2 Saturation 59 VBG Base Excess -19 L VBG Lactate 2.2 H* Sodium Cancelled 135 L Potassium Cancelled 5.2 H Chloride Cancelled 96 L Carbon Dioxide Cancelled 17.2 L Anion Gap Cancelled 21.8 H BUN Cancelled 24 H Creatinine Cancelled 1.3 H Est GFR (CKD-EPI 2020) Cancelled 49.79 Glucose Cancelled 527 H* Calcium Cancelled 10.2 H Magnesium Total Bilirubin AST ALT Alkaline Phosphatase Troponin I Total Protein Albumin Triglycerides Total Cholesterol Lipase Vitamin B12 Folate Urine Color Urine Clarity Urine pH Ur Specific [place] Urine Protein Urine Ketones Urine Blood Urine Nitrite Urine Bilirubin Urine Urobilinogen Ur Leukocyte Esterase Urine RBC Urine WBC Ur Epithelial Cells Urine Crystals Urine Bacteria Urine Casts Urine Mucus Ur Culture Indicated? Urine Glucose B-Hydroxybutyrate 06/14/25 06/14/25 06/14/25 00:15 02:05 04:42 WBC RBC Hgb Hct MCV MCH MCHC RDW Plt Count MPV Immature Gran % Neutrophils % Lymphocytes % Monocytes % Eosinophils % Basophils % Nucleated RBC % Absolute Neutrophils Absolute Lymphocytes Absolute Monocytes Absolute Eosinophils Absolute Basophils RBC Morphology VBG pH 7.23 L 7.32 VBG pCO2 27 L 33 L VBG pO2 44 33 VBG HCO3 12 L 17 L VBG Total CO2 10 L 15 L VBG O2 Saturation 79 68 VBG Base Excess -16 L -10 L VBG Lactate Sodium Cancelled 135 L Cancelled Potassium Cancelled 4.8 Cancelled Chloride Cancelled 98 Cancelled Carbon Dioxide Cancelled 12.5 L Cancelled Anion Gap Cancelled 24.5 H Cancelled BUN Cancelled 21 H Cancelled Creatinine Cancelled 1.1 H Cancelled Est GFR (CKD-EPI 2020) Cancelled 60.84 Cancelled Glucose Cancelled 540 H* Cancelled Calcium Cancelled 9.8 Cancelled Magnesium Total Bilirubin AST ALT Alkaline Phosphatase Troponin I Total Protein Albumin Triglycerides Cancelled Total Cholesterol Cancelled Lipase Cancelled Vitamin B12 Cancelled Folate Cancelled Urine Color Urine Clarity Urine pH Ur Specific [place] Urine Protein Urine Ketones Urine Blood Urine Nitrite Urine Bilirubin Urine Urobilinogen Ur Leukocyte Esterase Urine RBC Urine WBC Ur Epithelial Cells Urine Crystals Urine Bacteria Urine Casts Urine Mucus Ur Culture Indicated? Urine Glucose B-Hydroxybutyrate 06/14/25 06/14/25 06/14/25 05:30 06:15 08:25 WBC RBC Hgb Hct MCV MCH MCHC RDW Plt Count MPV Immature Gran % Neutrophils % Lymphocytes % Monocytes % Eosinophils % Basophils % Nucleated RBC % Absolute Neutrophils Absolute Lymphocytes Absolute Monocytes Absolute Eosinophils Absolute Basophils RBC Morphology VBG pH 7.35 VBG pCO2 40 L VBG pO2 27 VBG HCO3 22 L VBG Total CO2 20 L VBG O2 Saturation 57 VBG Base Excess -3 L VBG Lactate Sodium 138 Cancelled 141 Potassium 4.1 Cancelled 3.5 Chloride 101 Cancelled 104 Carbon Dioxide 17.4 L Cancelled 23.3 Anion Gap 19.6 H Cancelled 13.7 H BUN 19 H Cancelled 17 Creatinine 1.2 H Cancelled 1.1 H Est GFR (CKD-EPI 2020) 54.80 Cancelled 60.84 Glucose 432 H Cancelled 265 H Calcium 9.9 Cancelled 9.4 Magnesium Total Bilirubin AST ALT Alkaline Phosphatase Troponin I Total Protein Albumin Triglycerides 314 H Total Cholesterol 190 Lipase 250 H Vitamin B12 > 2000 H Folate 4.3 L Urine Color Urine Clarity Urine pH Ur Specific [place] Urine Protein Urine Ketones Urine Blood Urine Nitrite Urine Bilirubin Urine Urobilinogen Ur Leukocyte Esterase Urine RBC Urine WBC Ur Epithelial Cells Urine Crystals Urine Bacteria Urine Casts Urine Mucus Ur Culture Indicated? Urine Glucose B-Hydroxybutyrate 06/14/25 06/14/25 06/14/25 10:20 12:15 14:27 WBC RBC Hgb Hct MCV MCH MCHC RDW Plt Count MPV Immature Gran % Neutrophils % Lymphocytes % Monocytes % Eosinophils % Basophils % Nucleated RBC % Absolute Neutrophils Absolute Lymphocytes Absolute Monocytes Absolute Eosinophils Absolute Basophils RBC Morphology VBG pH 7.36 VBG pCO2 34 L VBG pO2 43 VBG HCO3 19 L VBG Total CO2 17 L VBG O2 Saturation 83 VBG Base Excess -7 L VBG Lactate Sodium 141 139 136 Potassium 3.7 3.6 3.7 Chloride 105 103 103 Carbon Dioxide 21.9 21.1 20.0 L Anion Gap 14.1 H 14.9 H 13.0 H BUN 16 14 13 Creatinine 1.0 0.9 0.8 Est GFR (CKD-EPI 2020) 68.21 77.40 89.15 Glucose 188 H 203 H 254 H Calcium 9.2 9.0 8.7 Magnesium Total Bilirubin AST ALT Alkaline Phosphatase Troponin I Total Protein Albumin Triglycerides Total Cholesterol Lipase Vitamin B12 Folate Urine Color Urine Clarity Urine pH Ur Specific [place] Urine Protein Urine Ketones Urine Blood Urine Nitrite Urine Bilirubin Urine Urobilinogen Ur Leukocyte Esterase Urine RBC Urine WBC Ur Epithelial Cells Urine Crystals Urine Bacteria Urine Casts Urine Mucus Ur Culture Indicated? Urine Glucose B-Hydroxybutyrate 06/14/25 06/14/25 06/14/25 16:15 18:10 20:25 WBC RBC Hgb Hct MCV MCH MCHC RDW Plt Count MPV Immature Gran % Neutrophils % Lymphocytes % Monocytes % Eosinophils % Basophils % Nucleated RBC % Absolute Neutrophils Absolute Lymphocytes Absolute Monocytes Absolute Eosinophils Absolute Basophils RBC Morphology VBG pH 7.39 7.42 H VBG pCO2 36 L 36 L VBG pO2 43 37 VBG HCO3 22 L 23 VBG Total CO2 19 L 21 L VBG O2 Saturation 84 77 VBG Base Excess -3 L -1 VBG Lactate Sodium 137 138 138 Potassium 3.4 L 3.3 L 3.3 L Chloride 103 104 104 Carbon Dioxide 22.7 22.6 23.7 Anion Gap 11.3 H 11.4 H 10.3 BUN 11 11 10 Creatinine 1.0 0.9 0.9 Est GFR (CKD-EPI 2020) 68.21 77.40 77.40 Glucose 233 H 168 H 103 Calcium 8.8 8.6 9.0 Magnesium Total Bilirubin AST ALT Alkaline Phosphatase Troponin I Total Protein Albumin Triglycerides Total Cholesterol Lipase Vitamin B12 Folate Urine Color Urine Clarity Urine pH Ur Specific [place] Urine Protein Urine Ketones Urine Blood Urine Nitrite Urine Bilirubin Urine Urobilinogen Ur Leukocyte Esterase Urine RBC Urine WBC Ur Epithelial Cells Urine Crystals Urine Bacteria Urine Casts Urine Mucus Ur Culture Indicated? Urine Glucose B-Hydroxybutyrate 06/14/25 06/15/25 06/15/25 22:15 05:15 06:30 WBC RBC Hgb Hct MCV MCH MCHC RDW Plt Count MPV Immature Gran % Neutrophils % Lymphocytes % Monocytes % Eosinophils % Basophils % Nucleated RBC % Absolute Neutrophils Absolute Lymphocytes Absolute Monocytes Absolute Eosinophils Absolute Basophils RBC Morphology VBG pH VBG pCO2 VBG pO2 VBG HCO3 VBG Total CO2 VBG O2 Saturation VBG Base Excess VBG Lactate Sodium Cancelled Cancelled 132 L Potassium Cancelled Cancelled 3.5 Chloride Cancelled Cancelled 97 L Carbon Dioxide Cancelled Cancelled 20.6 L Anion Gap Cancelled Cancelled 14.4 H BUN Cancelled Cancelled 10 Creatinine Cancelled Cancelled 0.7 Est GFR (CKD-EPI 2020) Cancelled Cancelled 104.65 Glucose Cancelled Cancelled 377 H Calcium Cancelled Cancelled 8.5 Magnesium Total Bilirubin AST ALT Alkaline Phosphatase Troponin I Total Protein Albumin Triglycerides Total Cholesterol Lipase Vitamin B12 Folate Urine Color Urine Clarity Urine pH Ur Specific [place] Urine Protein Urine Ketones Urine Blood Urine Nitrite Urine Bilirubin Urine Urobilinogen Ur Leukocyte Esterase Urine RBC Urine WBC Ur Epithelial Cells Urine Crystals Urine Bacteria Urine Casts Urine Mucus Ur Culture Indicated? Urine Glucose B-Hydroxybutyrate 06/16/25 06/16/25 10:02 10:03 WBC Pending RBC Pending Hgb Pending Hct Pending MCV Pending MCH Pending MCHC Pending RDW Pending Plt Count Pending MPV Pending Immature Gran % Pending Neutrophils % Pending Lymphocytes % Pending Monocytes % Pending Eosinophils % Pending Basophils % Pending Nucleated RBC % Absolute Neutrophils Pending Absolute Lymphocytes Pending Absolute Monocytes Pending Absolute Eosinophils Pending Absolute Basophils Pending RBC Morphology VBG pH VBG pCO2 VBG pO2 VBG HCO3 VBG Total CO2 VBG O2 Saturation VBG Base Excess VBG Lactate Sodium Pending Potassium Pending Chloride Pending Carbon Dioxide Pending Anion Gap Pending BUN Pending Creatinine Pending Est GFR (CKD-EPI 2020) Pending Glucose Pending Calcium Pending Magnesium Pending Total Bilirubin Pending AST Pending ALT Pending Alkaline Phosphatase Pending Troponin I Total Protein Pending Albumin Pending Triglycerides Total Cholesterol Lipase Vitamin B12 Folate Urine Color Urine Clarity Urine pH Ur Specific [place] Urine Protein Urine Ketones Urine Blood Urine Nitrite Urine Bilirubin Urine Urobilinogen Ur Leukocyte Esterase Urine RBC Urine WBC Ur Epithelial Cells Urine Crystals Urine Bacteria Urine Casts Urine Mucus Ur Culture Indicated? Urine Glucose B-Hydroxybutyrate Preliminary micro results at discharge 06/13/25 20:20 Blood Blood Culture - Preliminary NO GROWTH 48 HOURS 06/13/25 19:30 Blood Blood Culture - Preliminary NO GROWTH 48 HOURS PFSH All Active Problems (Updated 06/17/25 @ 00:01 by LUCERO FRANZ) New onset type 2 diabetes mellitus (Acute) ETOH abuse (Chronic) Tobacco abuse (Acute) Pancreatitis (Chronic) Elevated MCV (Acute) DKA (diabetic ketoacidosis) (Acute) S/P arthroscopy of right shoulder (Acute 11/09/20) Shoulder arthroscopy with rotator cuff repair, biceps tenodesis, extensive debridement, subacromial decompression, and distal clavicle excision Traumatic tear of right rotator cuff (Acute) Contact dermatitis and eczema due to detergents (Acute) Dysesthesia (Acute) Bursitis of right shoulder (Acute) Impingement syndrome of right shoulder (Acute) Biceps tendinitis of right shoulder (Acute) Arthritis of right acromioclavicular joint (Acute) Medical History (Updated 06/17/25 @ 00:01 by LUCERO FRANZ) Acid reflux Surgical History (Updated 06/17/25 @ 00:01 by [place] Nouriz DairyNICOLE) History of nasal septoplasty History of tubal ligation S/P right rotator cuff repair left Hx of section x2 Social History (System 02/20/23 @ 08:14 by Sybil Russo) Smoking/Tobacco Use Status: Current every day Tobacco Type: cigarettes Smoking packs per day: 1 Smoking cigarettes per day: 20.0 Smoking risk assessment performed?: Yes Alcohol Intake: never Drug use: Never Substance use type: does not use and marijuana Housing: apartment Current gender identity: female Do you feel safe at home: Yes Do you feel safe in your relationship?: Yes Time Spent with Patient Time Spent with Patient: <45 minutes Time was spent: preparing to see the patient(eg.review tests), obtaining and/or reviewing separately otained hiistory, ordering medications,tests, procedures, referring, communicating with other health intensive care anaesthetist, indepentently interpreting results, counseling the patient and care coordination
[2025-06-16 11:10] VITALS: BP 110/83; PULSE 106; PULSE 80; RESP 18; TEMP 36.7; O2SAT 97; O2SAT 98
--- NOTE | 2025-06-16 11:15 | W.NUTRFU ---
Date of service: 06/16/25 Time of Service: 11:15 Nutrition Note NOTE: Have visited with Barby yesterday and today for newly dx of diabetes. Yesterday visited with preliminary education and CGM requested by provider at discharge. Provided handout with some education over total carb recommendation of ~180 grams per day and reviewed counting total carbs or 12 servings of cahrbohydrates of 15 grams each. Reviewed that along with amounts that the type/quality of CHO matters greatly as well as other influences like eating with protein and fiber to lower glycemic load of the meal. We held off on applying the CGM last night to avoid a wasted day of glucose data while being checked in ICU. We put it on this morning and connected to her phone. It was reading 238 and indicated a climbing glucose level - this was after a fingerstick of 285 at breakfast and 8 units of insulin aspart - fasting glucose still pending this morning. She and present last evening - he states they both plan on changing the way they eat. I supported this goal and plan is to call on Thursday to book Barby a nutrition outpatient visit to follow up on CGM data and continue with education surrounding food choices and meal planning to get glucose closer to target. Barby has a complication of not having health insurance currently. I would recommend consideration of combination therapy (perhaps not metformin if pt has routine etoh use) but would definitely consider jardiance (although would not be affordable out of pocket). Provider made aware of [employer] brand for consideration for lower cost to patient and will review - may need to transition to NPH for lower cost option. Will remain available for any questions or additional education prior to discharge. Barby will expect call on Thursday when we will set up an outpatient visit for 10 days from today (when CGM applied). Time Spent in Nutritional Counseling and Treatment: 35 minutes
[2025-06-16 11:35] LABS: Abs Immature Grans 0.09 10^3/uL (0.0-0.06); HCT 41.8 % (36.0-46.0); Immature Grans % 1.4 %; MCH 33.0 pg (27.0-33.0); MPV 10.8 fL (8.0-11.0); Platelet Count 222 10^3/uL (130-400); RBC 4.58 10^6/uL (3.93-5.22); RDW 11.3 % (11.7-14.6); RDW-SD 38.2 fL; WBC 6.33 10^3/uL (4.4-10.8)
[2025-06-16 11:43] LABS: HGB 15.1 g/dL (11.2-15.7); MCHC 36.1 % (32.0-36.0); MCV 91 fL (80-95)
[2025-06-16 11:52] LABS: ALT 137 U/L (14-59); AST 152 U/L (15-37); Albumin 2.2 g/dL (3.4-5.0); Alkaline Phosphatase 121 U/L (46-116); Anion Gap 10.0 mmol/L (3-11); BUN 9 mg/dL (7-18); Bilirubin, Total 0.5 mg/dL (0.2-1.0); CO2 25.0 mmol/L (21.0-32.0); Calcium 8.5 mg/dL (8.5-10.1); Chloride 97 mmol/L (98-107); Glucose 200 mg/dL (74-106); Magnesium 1.5 mg/dL (1.8-2.4); Sodium 132 mmol/L (136-145); Total Protein 6.5 g/dL (6.4-8.2)
[2025-06-16 11:58] LABS: Potassium 2.9 mmol/L (3.5-5.1)
[2025-06-16] MEDS: Normal Saline Flush 10 ML SYR IVP (12:00)
[2025-06-16] MEDS: MAGNESIUM SULFATE 2 GM/50 ML BAG IV_INF (12:47)
[2025-06-16] MEDS: POTASSIUM CHLORIDE/0.9% NACL 1,000 ML 125 MEQ IV (12:48)
[2025-06-16 14:52] VITALS: BP 109/76; PULSE 92; TEMP 36.5
--- NOTE | 2025-06-16 17:24 | PDOC.CMDIS ---
Date of service: 06/16/25 Time of Service: 17:25 LACE Index Scoring Tool Questions: Length of Stay (in days): 3 Was the patient admitted via the E.D.?: Yes Comorbidities: Diabetes w/o Complication E.D. Visits: 0 Answers: Total Score: 7 Risk of Readmission: Low Risk Care Management Discharge Plan Reason for Hospitalization: DKA Discharge Plan: Barby returned home today with no new services. She had a new prescription for Lantus, which she was provided a good rx coupon for, reducing the medication cost to $35. She does not have insurance, and was connected to [employer], but she is not eligible for insurance currently. She does have insurance offered through her employer, and was encouraged to obtain insurance during open enrollment for coverage going forward. She was driven home by her spouse via private vehicle. She will follow up with her PCP and discharge plan of care. CM provided a return to work letter stating that she will be cleared to return to work on 06/26/25, per Dr. Zavala. Patient/Family Education Needs: Review discharge instructions and limitations, discussion of self care needs including ask me three.
== END 2025-06-16 14:55 | disposition home or self-care (01) | DRG 871 ==
LOC: ER 20:09 → ICU 22:23
PROVIDERS: Admitting Provider Hospitalist; Emergency Provider General Practice; PCP Family Medicine; Responsible Provider Family Medicine; Visit Provider Hospitalist
DX: A41.9 Sepsis, unspecified organism (principal); E11.10 Type 2 diabetes mellitus with ketoacidosis without coma; E87.1 Hypo-osmolality and hyponatremia; N10 Acute pyelonephritis; K86.1 Other chronic pancreatitis; R65.20 Severe sepsis without septic shock; E87.5 Hyperkalemia; D75.1 Secondary polycythemia; R06.82 Tachypnea, not elsewhere classified; F10.10 Alcohol abuse, uncomplicated; B96.20 Unspecified Escherichia coli [E. coli] as the cause of diseases classified elsewhere; B37.31 Acute candidiasis of vulva and vagina
CPT/HCPCS: 00123; 36415; 36416; 80048; 80053; 82805; 82962; 83690; 87040; 93005; 96361; 96365; 96366; 96367; 96375; 99291; J1650; 71045; 74177; 81003; 81015; 82010; 82465; 82607; 82746; 83605; 83735; 84478; 84484; 85025; 87086; 93010; 99223; 99233; 99238; J0131; J0612; J0696; J1815; J3411; J3475; J3490

== ENCOUNTER 2025-06-13 21:14 | Outpatient (REF) | payer SELFPAY ==
[2025-06-13 21:01] LABS: Glucose 500 mg/dL (Negative)
[2025-06-13 21:13] LABS: RBC >50 HPF (0-2); WBC >50 HPF (0-5)
== END 2025-06-13 21:15 | disposition home or self-care (01) ==
LOC: LBN 21:14
PROVIDERS: PCP Family Medicine; Visit Provider Nurse Practitioner Family
DX: R39.9 Unspecified symptoms and signs involving the genitourinary system (principal)
CPT/HCPCS: 81003; 81015

== ENCOUNTER 2025-06-26 03:36 | Outpatient (CLI) | payer SELFPAY | END 2025-06-26 03:37 | disposition home or self-care (01) | LOC: DS 03:36 | PROVIDERS: PCP Family Medicine; Visit Provider Dietitian, Registered | DX: E11.69 Type 2 diabetes mellitus with other specified complication (principal); E78.2 Mixed hyperlipidemia | CPT/HCPCS: 97802 ==

== ENCOUNTER → 2025-07-19 01:10 | Outpatient (CLI) | payer BC, SELFPAY ==
--- NOTE | 2025-07-14 08:21 | W.NUTRFU ---
Date of service: 06/26/25 Time of Service: 15:00 Nutrition Note NOTE: Saw Barby 06/26 50units lantus in AM daily and will start GLP-1 soon. Did report recent nocturnal low in the 60's and then twice the next night. We reviewed backing off of LAntus 5 units. She is walking twice a day and feels her eating is more consistent and better quality. She is working on getting CGM covered by [employer] and needs different pen needles as she currently has the wrong ones - will contact provider. Reviewed carb recommendations and balancing her plate with lots of non-starchy veggies at every meal if possible. Plan to follow up 08/07 07/18 - contacted for update. Barby still plans on follow up 08/07 She is on 20u lantus daily now and on day 9 of glp-1. has Dexcom covered by insurance and has glucometer as back up. She will continue to monitor and manage and we will follow up next month to troubleshoot any dietary struggles. Time Spent in Nutritional Counseling and Treatment: 45 min
--- NOTE | 2025-07-19 15:31 | DI.MAMMO_ITS ---
Exam(s) MAMMO SCREENING EXAM: MAMMO SCREENING CLINICAL HISTORY: SCREENING, Z12.31 TECHNIQUE: Bilateral full field digital CC and MLO mammographic images were obtained with 3D tomosynthesis and utilizing computer aided detection (CAD). COMPARISON: Comparison is made with prior examinations. FINDINGS: Masses/Architectural Distortion: No suspicious masses or areas of architectural distortion are present. Microcalcifications: No suspicious pleomorphic-type are seen. Skin Thickening/Nipple Retraction: None. IMPRESSION: 1. No significant interval change with no specific features of malignancy noted. 2. Unless there is more urgent need, screening mammography is recommended, as per [employer] guidelines. BI-RADS Category 1 - Negative Breast Density - Category B - There are scattered areas of fibroglandular density. Breast density Category C or D implies that the patient has dense breast tissue. Dense breast tissue can make it harder to find cancer on a mammogram. Dense breast tissue is also associated with an increased risk of breast cancer. This information about the result of the mammogram report was provided to the patient to raise their awareness. Use this report when you speak with the patient about their risks for breast cancer, which includes their family history. At that time, you may recommend additional screening tests (Ultrasound or MRI) as these tests may add significant information. A negative radiographic report should not delay biopsy if a dominant or clinically suspicious mass is present. Up to ten percent of cancers are not identified on mammography. A negative report may reinforce clinical impression. Adenosis and dense breasts may obscure an underlying neoplasm. False positive reports average 6 to 10%. Patient will receive a letter notifying them of these results.
== END ==
PROVIDERS: PCP Family Medicine; Visit Provider Family Medicine
DX: Z12.31 Encounter for screening mammogram for malignant neoplasm of breast (principal)
CPT/HCPCS: 00123; 77063; 77067